=== PATIENT | female | born 1990 | race Caucasian/White ===

== ENCOUNTER 2018-12-09 11:35 | Emergency (ER) | payer BC, SELFPAY ==
--- NOTE | 2018-12-09 12:37 | ER ---
Nurse's Notes [facility] Name: Kaila Singh Age: 28 yrs Sex: Female : 1990 Arrival Date: 12/09/2018 Time: 11:38 Bed 14 Private MD: Diagnosis: Acute upper respiratory infection, unspecified Presentation: 12/09 12:04 Presenting complaint: Patient states: i have had cough and congestion, my throat itches tw2 and this morning i feel like my tonsils are swollen, no fever. Transition of care: patient was not received from another setting of care. Onset of symptoms was December 09, 2018. Risk Assessment: Do you want to hurt yourself or someone else? Patient reports no desire to harm self or others. Initial Sepsis Screen: Does the patient meet any 2 criteria? No. Patient's initial sepsis screen is negative. Does the patient have a suspected source of infection? No. Patient's initial sepsis screen is negative. Care prior to arrival: None. 12:04 Method Of Arrival: Ambulatory tw2 12:04 Acuity: WOLF 4 tw2 Triage Assessment: 12:07 General: Appears in no apparent distress. Behavior is calm, cooperative, appropriate tw2 for age. Pain: Complains of pain in uvula, left aspect of posterior pharynx and right aspect of posterior pharynx. EENT: Reports nasal congestion nasal discharge. EENT: Reports. Neuro: Level of Consciousness is awake, alert, obeys commands, Oriented to person, place, time, situation. Cardiovascular: Patient's skin is warm and dry. Respiratory: Reports cough that is Airway is patent Respiratory effort is even, unlabored, Respiratory pattern is regular, symmetrical. GI: No signs and/or symptoms were reported involving the gastrointestinal system. : No signs and/or symptoms were reported regarding the genitourinary system. Derm: No signs and/or symptoms reported regarding the dermatologic system. 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 - Social history:: Smoking status: . - Ebola Screening: : Patient denies travel to an Ebola-affected area in the 21 days before illness onset. Screenin:08 Abuse screen: Denies threats or abuse. Nutritional screening: No deficits noted. tw2 Tuberculosis screening: No symptoms or risk factors identified. Fall Risk None identified. Assessment: 12:08 Reassessment: see triage assessment. tw2 12:43 Reassessment: Patient appears in no apparent distress at this time. No changes from tw2 previously documented assessment. Patient and/or family updated on plan of care and expected duration. Pain level reassessed. Patient is alert, oriented x 3, equal unlabored respirations, skin warm/dry/pink. Vital Signs: 12:05 BP 122 / 72; Pulse 95; Resp 17; Temp 98.3(TE); Pulse Ox 97% on R/A; Weight 113.4 kg tw2 (R); Height 5 ft. 6 in. (167.64 cm); 12:43 BP 113 / 62; Pulse 79; Resp 17; Pulse Ox 99% on R/A; tw2 12:05 Body Mass Index 40.35 (113.40 kg, 167.64 cm) tw2 ED Course: 11:38 Patient arrived in ED. rg4 12:00 Anoop Conti PA is PHCP. cp 12:00 Rob Valderrama MD is Attending Physician. cp 12:00 Bed in low position. Call light in reach. Pulse ox on. NIBP on. tw2 12:04 Luz Nguyen RN is Primary Nurse. tw2 12:05 Triage completed. tw2 12:07 Arm band placed on. tw2 12:12 Strep Sent. tw2 12:44 No provider procedures requiring assistance completed. Patient did not have IV access tw2 during this emergency room visit. Administered Medications: No medications were administered Outcome: 12:36 Discharge ordered by . cp 12:44 Discharged to home ambulatory. tw2 12:44 Condition: stable 12:44 Discharge instructions given to patient, Instructed on discharge instructions, follow up and referral plans. medication usage, Demonstrated understanding of instructions, follow-up care, medications, Prescriptions given X 1. 12:45 Patient left the ED. tw2 Signatures: Anoop Conti PA PA cp Wise, Tara, RN RN tw2 Nelly Beebe rg4
--- NOTE | 2018-12-09 12:37 | EDPHYS ---
Physician Documentation [facility] Name: Kaila Singh Age: 28 yrs Sex: Female : 1990 Arrival Date: 12/09/2018 Time: 11:38 Bed 14 Private MD: ED Physician Rob Valderrama HPI: 12/09 12:15 This 28 yrs old Female presents to ER via Ambulatory with complaints of cp Cough, Difficulty Swallowing. 12:15 The patient or guardian reports cough, that is intermittent, with no sputum. Onset: The cp symptoms/episode began/occurred 4 day(s) ago. Associated signs and symptoms: Pertinent positives: sore throat, Pertinent negatives: diarrhea, ear ache, fever, vomiting. 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 - Social history:: Smoking status: . - Ebola Screening: : Patient denies travel to an Ebola-affected area in the 21 days before illness onset. ROS: 12:20 Constitutional: Negative for body aches, chills, fever, poor PO intake. cp 12:20 Eyes: Negative for injury, pain, redness, and discharge. cp 12:20 ENT: Positive for sore throat, Negative for drainage from ear(s), ear pain, difficulty swallowing, difficulty handling secretions, hoarseness. 12:20 Neck: Negative for stiffness. 12:20 Cardiovascular: Negative for chest pain. 12:20 Respiratory: Positive for cough, Negative for shortness of breath, wheezing. 12:20 Abdomen/GI: Negative for abdominal pain, nausea, vomiting, and diarrhea. 12:20 Skin: Negative for cellulitis, rash. 12:20 Neuro: Negative for altered mental status, headache. 12:20 All other systems are negative. Exam: 12:25 Constitutional: The patient appears in no acute distress, alert, awake, non-toxic, well cp developed, well nourished. 12:25 Head/Face: Normocephalic, atraumatic. cp 12:25 Eyes: Periorbital structures: appear normal, Conjunctiva: normal, no exudate, no injection, Lids and lashes: appear normal, bilaterally. 12:25 ENT: External ear(s): are unremarkable, Ear canal(s): are normal, clear, TM's: bulging, is not appreciated, bilaterally, dullness, bilaterally, erythema, is not appreciated, bilaterally, Nose: is normal, Mouth: Lips: moist, Oral mucosa: moist, Posterior pharynx: Airway: no evidence of obstruction, patent, Tonsils: with erythema, no enlargement, no exudate, Uvula: midline, erythema, that is mild, exudate, is not appreciated. 12:25 Neck: ROM/movement: is normal, is supple, without pain, no range of motions limitations, no meningismus, no nuchal rigidity, Lymph nodes: no appreciated lymphadenopathy. 12:25 Chest/axilla: Inspection: normal. 12:25 Cardiovascular: Rate: normal, Rhythm: regular. 12:25 Respiratory: the patient does not display signs of respiratory distress, Respirations: normal, no use of accessory muscles, no retractions, no splinting, no tachypnea, labored breathing, is not present, Breath sounds: decreased breath sounds, are not appreciated, stridor, is not appreciated, + upper airway congestion. wheezing: is not appreciated. 12:25 Abdomen/GI: Exam negative for discomfort, distension, guarding, Inspection: abdomen appears normal. Vital Signs: 12:05 BP 122 / 72; Pulse 95; Resp 17; Temp 98.3(TE); Pulse Ox 97% on R/A; Weight 113.4 kg tw2 (R); Height 5 ft. 6 in. (167.64 cm); 12:43 BP 113 / 62; Pulse 79; Resp 17; Pulse Ox 99% on R/A; tw2 12:05 Body Mass Index 40.35 (113.40 kg, 167.64 cm) tw2 MDM: 12:00 Patient medically screened. cp 12:30 Differential Diagnosis: Bronchitis Influenza Viral Syndrome Pneumonia Other strep cp throat. 12:35 Data reviewed: vital signs, nurses notes, lab test result(s), and as a result, I will cp discharge patient. 12:35 Counseling: I had a detailed discussion with the patient and/or guardian regarding: the cp historical points, exam findings, and any diagnostic results supporting the discharge/admit diagnosis, lab results, to return to the emergency department if symptoms worsen or persist or if there are any questions or concerns that arise at home. Special discussion: I discussed with the patient/guardian that the patient's current presentation does not indicate dosing of antibiotics. They should follow-up with their primary care provider and return if the symptoms persist or progress. 12/09 12:08 Order name: Strep; Complete Time: 12:34 cp 12/09 12:34 Interpretation: Reviewed. cp 12/09 12:36 Order name: Throat Culture EDMS Administered Medications: No medications were administered Disposition: 12/10 07:05 Co-signature as Attending Physician, Rob Valderrama MD. rn Disposition: 12/09/18 12:36 Discharged to Home. Impression: Acute upper respiratory infection, unspecified. - Condition is Stable. - Discharge Instructions: Upper Respiratory Infection, Adult, Cool Mist Vaporizer. - Prescriptions for Tessalon Perles 100 mg Oral Capsule - take 2 capsule by ORAL route every 8 hours As needed; 30 capsule. - Medication Reconciliation Form, Thank You Letter, Antibiotic Education, Prescription Opioid Use, Work release form form. - Follow up: Private Physician; When: 2 - 3 days; Reason: Worsening of condition. - Problem is new. - Symptoms have improved. Signatures: Dispatcher [employer] EDMS Rob Valderrama MD MD rn Anoop Conti PA PA cp Wise, Tara, RN RN tw2 Corrections: (The following items were deleted from the chart) 12/09 12:45 12:36 12/09/2018 12:36 Discharged to Home. Impression: Acute upper respiratory tw2 infection, unspecified. Condition is Stable. Forms are Work release form, Medication Reconciliation Form, Thank You Letter, Antibiotic Education, Prescription Opioid Use. Follow up: Private Physician; When: 2 - 3 days; Reason: Worsening of condition. Problem is new. Symptoms have improved. cp
== END 2018-12-09 12:45 | disposition home or self-care (01) ==
LOC: ER 11:35
DX: J06.9 Acute upper respiratory infection, unspecified (principal)
CPT/HCPCS: 87070; 87081; 99283

== ENCOUNTER 2020-02-20 06:18 | Emergency (ER) | payer OTHER, SELFPAY ==
--- NOTE | 2020-02-20 07:22 | ER ---
Nurse's Notes [facility] Name: Kaila Singh Age: 29 yrs Sex: Female : 1990 Arrival Date: 02/20/2020 Time: 06:21 Bed 7 Private MD: Diagnosis: Acute Bacterial Bronchitis Presentation: 02/19 06:26 Chief complaint:. Care prior to arrival: None. Transition of care: patient was not sg received from another setting of care. 06:26 Acuity: WOLF 4 sg 06:33 Coronavirus screen: Patient reports a cough. pt reports NEGATIVE COVID 19 results sg posted yesterday. Ebola Screen: Patient negative for fever greater than or equal to 101.5 degrees Fahrenheit, and additional compatible Ebola Virus Disease symptoms Patient denies exposure to infectious person. Patient denies travel to an Ebola-affected area in the 21 days before illness onset. No symptoms or risks identified at this time. Initial Sepsis Screen: Does the patient meet any 2 criteria? No. Patient's initial sepsis screen is negative. Does the patient have a suspected source of infection? No. Patient's initial sepsis screen is negative. Risk Assessment: Do you want to hurt yourself or someone else? Patient reports no desire to harm self or others. Onset of symptoms was February 20, 2020. 06:33 Method Of Arrival: Ambulatory sg Historical: - Allergies: 06:28 No Known Allergies; sg - PMHx: 06:28 None; sg - PSHx: 06:28 Colon Polyp Removal; sg - Immunization history:: Adult Immunizations up to date. - Social history:: Smoking status: Patient denies any tobacco usage or history of. Screenin:37 Abuse screen: Denies threats or abuse. Denies injuries from another. Nutritional mg2 screening: No deficits noted. Tuberculosis screening: No symptoms or risk factors identified. Fall Risk None identified. Assessment: 06:37 General: Appears in no apparent distress. comfortable, Behavior is calm, cooperative. mg2 Pain: Denies pain. Neuro: Level of Consciousness is awake, alert, obeys commands, Oriented to person, place, time, situation. Cardiovascular: Capillary refill < 3 seconds Patient's skin is warm and dry. Respiratory: Reports cough that is dry, Airway is patent Respiratory effort is even, unlabored, Respiratory pattern is regular, symmetrical, Breath sounds are clear bilaterally. in mediastinum, right upper lobe, left upper lobe, left lower lobe, right lower lobe, left posterior upper lobe, right posterior upper lobe, left posterior lower lobe, right posterior middle lobe and right posterior lower lobe. GI: No signs and/or symptoms were reported involving the gastrointestinal system. : No signs and/or symptoms were reported regarding the genitourinary system. EENT: No signs and/or symptoms were reported regarding the EENT system. Derm: Skin is intact, is healthy with good turgor, Skin is pink, warm \T\ dry. normal. Musculoskeletal: Circulation, motion, and sensation intact. Capillary refill < 3 seconds. 07:34 Reassessment: Patient appears in no apparent distress at this time. Patient and/or ph family updated on plan of care and expected duration. Pain level reassessed. Patient is alert, oriented x 3, equal unlabored respirations, skin warm/dry/pink. Pt d/c home w/ prescriptions and work note. Vital Signs: 06:33 BP 135 / 77; Pulse 87; Resp 18; Temp 97.5; Pulse Ox 100% on R/A; Pain 3/10; sg 07:35 BP 128 / 76; Pulse 81; Resp 18; Temp 98.0; Pulse Ox 99% on R/A; ph ED Course: 06:21 Patient arrived in ED. es 06:25 Arm band placed on. EKG completed in triage. Results shown to MD. sg 06:27 Zia Lafleur PA is PHCP. jr8 06:27 Shlomo Mace MD is Attending Physician. jr8 06:27 Triage completed. sg 06:34 Osiel Manzano, TEODORO is Primary Nurse. mg2 06:38 Patient has correct armband on for positive identification. mg2 06:38 No provider procedures requiring assistance completed. Patient did not have IV access mg2 during this emergency room visit. 06:58 XRAY Chest Pa And Lat (2 Views) In Process Unspecified. EDMS Administered Medications: No medications were administered Outcome: 07:21 Discharge ordered by MD. jr8 07:35 Discharged to home ambulatory. ph 07:35 Condition: good 07:35 Discharge instructions given to patient, Instructed on discharge instructions, follow up and referral plans. medication usage, Demonstrated understanding of instructions, follow-up care, medications, Prescriptions given X 3. 07:36 Patient left the ED. ph Signatures: Dispatcher [employer] Valerio Casanova RN RN sg Sara Magdaleno Josh, PA PA jr8 Светлана Puente RN RN Osiel Manzano RN RN mg2 Corrections: (The following items were deleted from the chart) 06:34 06:26 Transition of care: patient was not received from another setting of care. shell goff
--- NOTE | 2020-02-20 07:22 | EDPHYS ---
Physician Documentation [facility] Name: Kaila Singh Age: 29 yrs Sex: Female : 1990 Arrival Date: 02/20/2020 Time: 06:21 Bed 7 Private MD: ED Physician Shlomo Mace HPI: 02/19 06:40 This 29 yrs old Female presents to ER via Ambulatory with complaints of jr8 bronchitis. 06:40 The patient or guardian reports cough, that is intermittent, described as moderate, jr8 with no sputum. Onset: The symptoms/episode began/occurred gradually, 2 week(s) ago. Severity of symptoms: At their worst the symptoms were moderate, in the emergency department the symptoms are unchanged. Modifying factors: The symptoms are alleviated by nothing, the symptoms are aggravated by nothing. Associated signs and symptoms: Pertinent positives: fever, rhinorrhea. The patient has not experienced similar symptoms in the past. The patient has not recently seen a physician. Was COVID tested via nasal PCR and go results yesterday. Negative for Sars CoV-2. Stated that she has occasional night fevers with persistent dry cough that will not go away. Denies any other symptoms at this time . Historical: - Allergies: 06:28 No Known Allergies; sg - PMHx: 06:28 None; sg - PSHx: 06:28 Colon Polyp Removal; sg - Immunization history:: Adult Immunizations up to date. - Social history:: Smoking status: Patient denies any tobacco usage or history of. ROS: 06:40 Eyes: Negative for injury, pain, redness, and discharge, ENT: Negative for injury, jr8 pain, and discharge, Neck: Negative for injury, pain, and swelling, Cardiovascular: Negative for chest pain, palpitations, and edema, Abdomen/GI: Negative for abdominal pain, nausea, vomiting, diarrhea, and constipation, Back: Negative for injury and pain, MS/Extremity: Negative for injury and deformity, Skin: Negative for injury, rash, and discoloration, Neuro: Negative for headache, weakness, numbness, tingling, and seizure. 06:40 Constitutional: Positive for fever. 06:40 Respiratory: Positive for cough. Exam: 06:40 Eyes: Pupils equal round and reactive to light, extra-ocular motions intact. Lids and jr8 lashes normal. Conjunctiva and sclera are non-icteric and not injected. Cornea within normal limits. Periorbital areas with no swelling, redness, or edema. ENT: Nares patent. No nasal discharge, no septal abnormalities noted. Tympanic membranes are normal and external auditory canals are clear. Oropharynx with no redness, swelling, or masses, exudates, or evidence of obstruction, uvula midline. Mucous membranes moist. Neck: Trachea midline, no thyromegaly or masses palpated, and no cervical lymphadenopathy. Supple, full range of motion without nuchal rigidity, or vertebral point tenderness. No Meningismus. Cardiovascular: Regular rate and rhythm with a normal S1 and S2. No gallops, murmurs, or rubs. Normal PMI, no JVD. No pulse deficits. Respiratory: Lungs have equal breath sounds bilaterally, clear to auscultation and percussion. No rales, rhonchi or wheezes noted. No increased work of breathing, no retractions or nasal flaring. Abdomen/GI: Soft, non-tender, with normal bowel sounds. No distension or tympany. No guarding or rebound. No evidence of tenderness throughout. Back: No spinal tenderness. No costovertebral tenderness. Full range of motion. Skin: Warm, dry with normal turgor. Normal color with no rashes, no lesions, and no evidence of cellulitis. MS/ Extremity: Pulses equal, no cyanosis. Neurovascular intact. Full, normal range of motion. Neuro: Awake and alert, GCS 15, oriented to person, place, time, and situation. Cranial nerves II-XII grossly intact. Motor strength 5/5 in all extremities. Sensory grossly intact. Cerebellar exam normal. Normal gait. Vital Signs: 06:33 BP 135 / 77; Pulse 87; Resp 18; Temp 97.5; Pulse Ox 100% on R/A; Pain 3/10; sg 07:35 BP 128 / 76; Pulse 81; Resp 18; Temp 98.0; Pulse Ox 99% on R/A; ph MDM: 06:27 Patient medically screened. jr8 07:19 Differential Diagnosis: Bronchitis Influenza Upper Respiratory Infection Sinusitis jr8 Pharyngitis Viral Syndrome Pneumonia. Data reviewed: vital signs, nurses notes, radiologic studies, plain films, and as a result, I will discharge patient. Data interpreted: Pulse oximetry: on room air is 100 %. Interpretation: normal. Counseling: I had a detailed discussion with the patient and/or guardian regarding: the historical points, exam findings, and any diagnostic results supporting the discharge/admit diagnosis, radiology results, the need for outpatient follow up, a family practitioner, to return to the emergency department if symptoms worsen or persist or if there are any questions or concerns that arise at home. 02/19 06:40 Order name: XRAY Chest Pa And Lat (2 Views) jr8 Administered Medications: No medications were administered Disposition: 02/20/20 07:21 Discharged to Home. Impression: Acute Bacterial Bronchitis . - Condition is Stable. - Discharge Instructions: Acute Bronchitis, Adult. - Prescriptions for Prednisone 20 mg Oral Tablet - take 1 tablet by ORAL route once daily for 5 days; 5 tablet. Zithromax Z- Miguel Angel 250 mg Oral Tablet - take 1 tablet by ORAL route as directed for 5 days Day 1 - take two (2) tablets one time. Day 2, 3, 4 , 5 take one (1) tablet once daily.; 6 tablet. - Medication Reconciliation Form, Thank You Letter, Antibiotic Education, Prescription Opioid Use, Work release form form. - Follow up: Private Physician; When: 5 - 6 days; Reason: Recheck today's complaints, Continuance of care, Re-evaluation by your physician. - Problem is new. - Symptoms are unchanged. Signatures: Dispatcher [employer] EDMS Valerio Lara RN RN Zia Lafleur PA PA jr8 Светлана Punete RN RN ph Corrections: (The following items were deleted from the chart) 07:36 07:21 02/20/2020 07:21 Discharged to Home. Impression: Acute Bacterial Bronchitis . ph Condition is Stable. Forms are Medication Reconciliation Form, Thank You Letter, Antibiotic Education, Prescription Opioid Use. Follow up: Private Physician; When: 5 - 6 days; Reason: Recheck today's complaints, Continuance of care, Re-evaluation by your physician. Problem is new. Symptoms are unchanged. jr8
[2020-02-20 07:44] VITALS: BP 128/76; TEMP 98; O2SAT 99
--- NOTE | 2020-02-20 08:15 | RAD REPORT ---
EXAM DESCRIPTION: RAD - Chest Pa And Lat (2 Views) - 02/20/2020 6:58 am CLINICAL HISTORY: COUGH COMPARISON: None TECHNIQUE: Frontal and lateral views of the chest were obtained. FINDINGS: The lungs are clear. Mediastinal and hilar regions within normal limits. Heart size is no rmal and central vasculature is within normal limits. No pleural effusion or pneumothorax seen. No acute bony finding noted. No aortic abnormality. IMPRESSION: No acute cardiopulmonary process.
== END 2020-02-20 07:36 | disposition home or self-care (01) ==
LOC: ER 06:18
DX: J20.8 Acute bronchitis due to other specified organisms (principal)
CPT/HCPCS: 71046; 99283

== ENCOUNTER 2020-02-24 22:19 | Emergency (ER) | payer SELFPAY ==
[2020-02-24] MEDS ORDERED: BENZONATATE 100 MG CAP PO ONE (22:59)
--- NOTE | 2020-02-24 23:45 | EDPHYS ---
Physician Documentation [facility] Name: Kaila Singh Age: 29 yrs Sex: Female : 1990 Arrival Date: 02/24/2020 Time: 22:22 Bed 8 Private MD: ED Physician Jose Horowitz HPI: 02/23 22:55 This 29 yrs old Female presents to ER via Ambulatory with complaints of Sore cp Throat. 22:55 The patient presents with sore throat. cp 22:55 Associated signs and symptoms: Pertinent positives: cough, Pertinent negatives cp diarrhea, dysphagia, fever, headache, vomiting. Patient reports taking last dose of Zithromax and Prednisone today. 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 - Social history:: Smoking status: Patient reports the use of cigarette tobacco products, smokes one-half pack cigarettes per day. ROS: 23:00 Constitutional: Negative for body aches, chills, fever. cp 23:00 Eyes: Negative for injury, pain, redness, and discharge. cp 23:00 ENT: Positive for sore throat, Negative for ear pain, sinus congestion, difficulty swallowing, difficulty handling secretions. 23:00 Cardiovascular: Negative for chest pain, edema, palpitations. 23:00 Respiratory: Positive for cough, Negative for shortness of breath. 23:00 Abdomen/GI: Negative for abdominal pain, nausea, vomiting, and diarrhea. 23:00 All other systems are negative. cp Exam: 23:10 Constitutional: The patient appears in no acute distress, alert, awake, non-toxic, well cp developed, well nourished, obese. 23:10 Head/Face: Normocephalic, atraumatic. cp 23:10 Eyes: Periorbital structures: appear normal, Conjunctiva: normal, no exudate, no injection, Lids and lashes: appear normal, bilaterally. 23:10 ENT: External ear(s): are unremarkable, Ear canal(s): are normal, clear, TM's: dullness, bilaterally, Nose: is normal, Mouth: is normal, Posterior pharynx: Airway: no evidence of obstruction, patent, Tonsils: no enlargement, no exudate, swelling, is not appreciated, erythema, that is mild, exudate, is not appreciated. 23:10 Neck: ROM/movement: Meningeal signs: are not present, Lymph nodes: no appreciated lymphadenopathy. 23:10 Chest/axilla: Inspection: normal. 23:10 Cardiovascular: Rate: tachycardic, Rhythm: regular, Edema: is not appreciated. 23:10 Respiratory: the patient does not display signs of respiratory distress, Respirations: normal, no use of accessory muscles, no retractions, no splinting, labored breathing, is not present, Breath sounds: decreased breath sounds, are not appreciated, stridor, is not appreciated, wheezing: is not appreciated. 23:10 Abdomen/GI: Exam negative for discomfort, distension, guarding, Inspection: abdomen appears normal. Vital Signs: 22:28 BP 123 / 82; Pulse 101; Resp 18; Temp 98.6(O); Pulse Ox 98% on R/A; Weight 124.74 kg aj1 (R); Height 5 ft. 6 in. (167.64 cm) (R); Pain 0/10; 23:53 BP 115 / 86; Pulse 95; Resp 18; Temp 98.6; Pulse Ox 100% on R/A; mg2 22:28 Body Mass Index 44.39 (124.74 kg, 167.64 cm) aj1 MDM: 22:36 Patient medically screened. cp 23:00 Differential diagnosis: apthous stomatitis, bronchitis, group A strep tonsillitis, cp pharyngitis, retropharyngeal abcess tonsillitis, uvulitis, pneumonia. 23:45 Data reviewed: vital signs, nurses notes, old medical records, notes from previous cp visit lab test result(s), and as a result, I will discharge patient. 23:45 Counseling: I had a detailed discussion with the patient and/or guardian regarding: the cp historical points, exam findings, and any diagnostic results supporting the discharge/admit diagnosis, lab results, to return to the emergency department if symptoms worsen or persist or if there are any questions or concerns that arise at home. Response to treatment: the patient's symptoms have mildly improved after treatment, and as a result, I will discharge patient. 02/23 22:48 Order name: Strep cp 02/23 23:13 Order name: Throat Culture EDW[facility] Administered Medications: 23:01 Drug: Tessalon Perle 200 mg Route: PO; rr5 23:53 Follow up: Response: No adverse reaction mg2 Disposition: 02/24/20 23:45 Discharged to Home. Impression: Acute bronchitis. - Condition is Stable. - Discharge Instructions: Acute Bronchitis, Adult. - Prescriptions for Tessalon Perles 100 mg Oral Capsule - take 2 capsule by ORAL route every 8 hours As needed; 30 capsule. Medrol (Miguel Angel) 4 mg Oral Tablets, Dose Pack - take 1 tablet by ORAL route as directed - follow package instructions; 1 packet. Albuterol Sulfate 90 mcg/actuation - inhale 1-2 puff by INHALATION route every 4-6 hours; 1 Inhaler. - Medication Reconciliation Form, Thank You Letter, Antibiotic Education, Prescription Opioid Use, Work release form form. - Follow up: Private Physician; When: 1 week; Reason: Worsening of condition. - Problem is an ongoing problem. - Symptoms have improved. Addendum: 02/26/2020 07:14 Co-signature as Attending Physician, Jose Horowitz MD I agree with the assessment and t w4 plan of care. Signatures: Dispatcher [employer] Natasha Calvo RN RN aj1 Anoop Conti PA PA cp Wadley, Terrence, MD MD tw4 Osiel Manzano RN RN mg2 Jake Wren RN RN rr5 Corrections: (The following items were deleted from the chart) 02/23 23:56 23:45 02/24/2020 23:45 Discharged to Home. Impression: Acute bronchitis. Condition is mg2 Stable. Forms are Medication Reconciliation Form, Thank You Letter, Antibiotic Education, Prescription Opioid Use. Follow up: Private Physician; When: 1 week; Reason: Worsening of condition. Problem is an ongoing problem. Symptoms have improved. cp
--- NOTE | 2020-02-24 23:45 | ER ---
Nurse's Notes [facility] Name: Kaila Singh Age: 29 yrs Sex: Female : 1990 Arrival Date: 02/24/2020 Time: 22:22 Bed 8 Private MD: Diagnosis: Acute bronchitis Presentation: 02/23 22:28 Chief complaint: Patient states: "I came last week because I have bad bronchitis, but I aj1 took all my medicine and I'm not getting any better" Patient reports cough, and intermittent fever and reports that her chest feels tight "all the time" Patient did not follow up with her PHCP seen being seen in the ER last week. Coronavirus screen: Prior COVID test. Ebola Screen: Patient denies travel to an Ebola-affected area in the 21 days before illness onset. Initial Sepsis Screen: Does the patient meet any 2 criteria? No. Patient's initial sepsis screen is negative. Does the patient have a suspected source of infection? Yes: Productive cough/pneumonia. Risk Assessment: Do you want to hurt yourself or someone else? Patient reports no desire to harm self or others. Onset of symptoms was February 2020. 22:28 Method Of Arrival: Ambulatory aj1 22:28 Acuity: WOLF 4 aj1 Triage Assessment: 22:31 General: Appears in no apparent distress. comfortable, Behavior is calm, cooperative, aj1 appropriate for age. Pain: Denies pain. EENT: Denies nasal congestion, nasal discharge. Neuro: Level of Consciousness is awake, alert, obeys commands. Cardiovascular: Patient's skin is warm and dry. Respiratory: Airway is patent Respiratory effort is even, unlabored, Respiratory pattern is regular, symmetrical. 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 - Social history:: Smoking status: Patient reports the use of cigarette tobacco products, smokes one-half pack cigarettes per day. Screenin:40 Abuse screen: Denies threats or abuse. Denies injuries from another. Nutritional mg2 screening: No deficits noted. Tuberculosis screening: No symptoms or risk factors identified. Fall Risk None identified. Assessment: 22:39 General: Appears in no apparent distress. comfortable, Behavior is calm, cooperative. mg2 Pain: Complains of pain in throat. Neuro: Level of Consciousness is awake, alert, obeys commands, Oriented to person, place, time, situation. Cardiovascular: Capillary refill < 3 seconds Patient's skin is warm and dry. Respiratory: Airway is patent Respiratory effort is even, unlabored, Respiratory pattern is regular, symmetrical, Breath sounds are clear bilaterally. in mediastinum, right upper lobe, left upper lobe, right middle lobe, left lower lobe, right lower lobe, left posterior upper lobe, right posterior upper lobe, left posterior lower lobe, right posterior middle lobe and right posterior lower lobe. Respiratory: Reports cough that is. GI: No signs and/or symptoms were reported involving the gastrointestinal system. : No signs and/or symptoms were reported regarding the genitourinary system. EENT: Reports sore throat from severe coughing. Derm: Skin is intact, is healthy with good turgor, Skin is pink, warm \\T\\ dry. normal. Musculoskeletal: Circulation, motion, and sensation intact. Capillary refill < 3 seconds. 23:54 Reassessment: Patient appears in no apparent distress at this time. Patient states mg2 feeling better. Vital Signs: 22:28 BP 123 / 82; Pulse 101; Resp 18; Temp 98.6(O); Pulse Ox 98% on R/A; Weight 124.74 kg aj1 (R); Height 5 ft. 6 in. (167.64 cm) (R); Pain 0/10; 23:53 BP 115 / 86; Pulse 95; Resp 18; Temp 98.6; Pulse Ox 100% on R/A; mg2 22:28 Body Mass Index 44.39 (124.74 kg, 167.64 cm) aj1 ED Course: 22:22 Patient arrived in ED. cl3 22:30 Triage completed. aj1 22:31 Arm band placed on Patient placed in an exam room. aj1 22:34 Osiel Manzano, TEODORO is Primary Nurse. mg2 22:34 Anoop Conti PA is PHCP. cp 22:34 Jose Horowitz MD is Attending Physician. cp 22:40 Patient has correct armband on for positive identification. Door closed. mg2 22:40 No provider procedures requiring assistance completed. Patient did not have IV access mg2 during this emergency room visit. 23:01 Strep swab sent to lab. rr5 Administered Medications: 23:01 Drug: Tessalon Perle 200 mg Route: PO; rr5 23:53 Follow up: Response: No adverse reaction mg2 Outcome: 23:45 Discharge ordered by MD. cp 23:54 Discharged to home ambulatory. mg2 23:54 Condition: stable 23:54 Discharge instructions given to patient, Instructed on discharge instructions, follow up and referral plans. medication usage, Demonstrated understanding of instructions, follow-up care, medications, Prescriptions given X 3. 23:56 Patient left the ED. mg2 Signatures: Natasha Ugalde, RN RN aj1 Anoop Conti PA PA Osiel Gautam, TEODORO RN mg2 Jake Wren RN RN rr5 Geoff Thomas cl3
[2020-02-25 00:21] VITALS: TEMP 98.6
[2020-02-25 00:23] VITALS: BP 115/86; O2SAT 100
== END 2020-02-24 23:56 | disposition home or self-care (01) ==
LOC: ER 22:19
DX: J20.9 Acute bronchitis, unspecified (principal); F17.210 Nicotine dependence, cigarettes, uncomplicated
CPT/HCPCS: 87070; 87081; 99283

== ENCOUNTER 2021-01-30 21:12 | Emergency (ER) | payer SELFPAY ==
--- OUTSIDE RECORDS SUMMARY | 2021-01-30 21:15 | XMS REPORT | Continuity of Care Document ---
:1990 Author Organization [facility] t Address [address] [place] [address] Care Team Providers Name Role Phone Pcp MD Primary Care Physician Unavailable Tripp Rodriguez DO Attending Clinician Han Cagle Attending Clinician Problems This patient has no known problems. Allergies, Adverse Reactions, Alerts This patient has no known allergies or adverse reactions. Social History Social Habit Start Date Stop Date Quantity Comments Source Sex Assigned At [facility] Exposure to Not sure [address] (event) Tobacco use and 2021-01-28 2021-01-28 Never used [facility] - exposure 00:00:00 00:00:00 [facility] Alcohol intake 2021-01-28 2021-01-28 Ex-drinker [facility] es - 00:00:00 00:00:00 (finding) [facility] Smoking Status Start Date Stop Date Source Current some day smoker 2021-01-28 00:00:00 [facility] Medications Ordered Filled Start Stop Current Ordering Indication Dosage Frequency Signature Comments Components Source Medication Medication Date Date Medication? Clinician (SIG) Name Name hydrocortis 2020- Yes 25mg Q.5D [facility] [address] [facility] 01-28 suppositor [facility] - ([facility]) 00:00: 23:59 y (25 mg M edical 25 mg 00 :00 total) Jensen suppository rectally 2 (two) times daily for 10 days. Vital Signs Vital Name Observation Time Observation Value Comments Source Systolic blood 2021-01-28 15:18:00 160 mm[Hg] [facility] Diastolic blood 2021-01-28 15:18:00 78 mm[Hg] [facility] Heart rate 2021-01-28 15:18:00 103 /min [facility] Body temperature 2021-01-28 15:18:00 36.89 Zully [facility] Respiratory rate 2021-01-28 15:18:00 20 /min [facility] Body height 2021-01-28 15:18:00 167.6 cm [facility] Body weight 2021-01-28 15:18:00 134.265 kg [facility] BMI 2021-01-28 15:18:00 47.78 kg/m2 [facility] Oxygen saturation in 2021-01-28 15:18:00 98 /min [facility] Arterial blood by Medical Ce nter Pulse oximetry Procedures This patient has no known procedures. Plan of Care Planned Activity Planned Date Details Comments Source Future Scheduled 2021-05-[address] [facility] - Test 00:00:00 (Season Ended) [code = [facility] INFLUENZA VACCINE (Season Ended)] Future Scheduled 2020-09-[address] [facility] - Test 00:00:00 (12+) [code = [facility] DEPRESSION SCREENING (12+)] Future Scheduled [address] [facility] - Test 00:00:[address] [facility] cervix (procedure) [code = 423383915] Future Scheduled [address] [facility] - Test 00:00:00 (procedure) [code = [facility] 25992390] Future Scheduled 2008 DTAP/TDAP/TD VACCINES [facility] - Test 00:00:00 (1 - Tdap) [code = Medical C enter DTAP/TDAP/TD VACCINES (1 - Tdap)] Future Scheduled 2007 HEPATITIS C SCREENING [facility] - Test 00:00:00 [code = HEPATITIS C [facility] SCREENING] Future Scheduled [address] [facility] - Test 00:00:00 0-64 YRS (1 of 1 - Medical C enter PPSV23) [code = PNEUMOCOCCAL VACCINE 0-64 YRS (1 of 1 - PPSV23)] Encounters Start End Encounter Admission Attending Care Care Encounter Source Date/Time Date/Time Type Type Clinicians Facility Department ID 2020-04-23 2020-04-23 Emergency [facility] [id number] 01:53:00 02:06:00 Karen Lakhani [id number] [place] [id number] [place] [id number] Results This patient has no known results.
[2021-01-30] MEDS ORDERED: NA CHLORIDE 0.9% 1,000 ML ONE (22:18)
[2021-01-30] MEDS ORDERED: ONDANSETRON 4 MG/2 ML VIAL ONE (22:18)
[2021-01-30] MEDS ORDERED: MORPHINE 4 MG/ML SYR ONE (22:18)
[2021-01-30 22:19] LABS: Absolute Lymphocytes (CBC) 1.2 K/uL (0.7-4.9); Basophils % 0.6 % (0-1.3); Hematocrit 37.5 % (36.0-45.0); MPV 7.7 fL (7.6-11.3)
[2021-01-30 22:31] LABS: Potassium 3.3 mmol/L (3.5-5.1)
[2021-01-30 23:45] LABS: Urine Blood Trace-intact (Negative); Urine Glucose Negative (Negative); Urine Protein Negative (Negative); Urine Specific Gravity <=1.005 (1.005-1.030); Urine pH 5.5 (5.0-7.0)
[2021-01-31 00:01] LABS: SARS-COV-2 RT PCR NEGATIVE (NEGATIVE)
--- NOTE | 2021-01-31 00:39 | ER ---
[facility]'s [facility] Name: Kaila [facility] Age: 30 yrs Sex: Female : 1990 Arrival Date: 01/30/2021 Time: 21:17 Bed 20 Private MD: Diagnosis: Hemorrhoids and perianal venous thrombosis Presentation: 01/30 21:29 Chief complaint: Patient states: Rectal pain began Tuesday. Went to [facility] in [address] and was dx with internal hemorrhoid; Provider prescribed pt Hydrocortisone suppository, pt states the medication isn't working. Coronavirus screen: Client denies travel out of the [place] in the last 14 days. Ebola Screen: Patient negative for fever greater than or equal to 101.5 degrees Fahrenheit, and additional compatible Ebola Virus Disease symptoms. Initial Sepsis Screen: Does the patient meet any 2 criteria? No. Patient's initial sepsis screen is negative. Does the patient have a suspected source of infection? No. Patient's initial sepsis screen is negative. Risk Assessment: Do you want to hurt yourself or someone else? Patient reports no desire to harm self or others. Onset of symptoms was January 27, 2021. 21:29 Method Of Arrival: Ambulatory [facility] 21:29 Acuity: WOLF 3 [facility] Triage Assessment: 21:35 General: Appears in no apparent distress. uncomfortable, Behavior is calm, cooperative. 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 - Social history:: Smoking status: Patient reports the use of cigarette tobacco products, smokes one-half pack cigarettes per day. Screenin:00 Abuse screen: Denies threats or abuse. Nutritional screening: No deficits noted. ea Tuberculosis screening: No symptoms or risk factors identified. Fall Risk None identified. Assessment: 22:00 General: Appears in no apparent distress. Behavior is calm, cooperative, appropriate ea for age. Pain: Complains of pain in rectum. Neuro: Level of Consciousness is awake, alert, obeys commands, Oriented to person, place, time. Cardiovascular: Patient's skin is warm and dry. Respiratory: Airway is patent Respiratory effort is even, unlabored, Respiratory pattern is regular, agonal. Derm: Skin is pink, warm \T\ dry. 23:38 Reassessment: Patient and/or family updated on plan of care and expected duration. Pain ea level reassessed. Patient is alert, oriented x 3, equal unlabored respirations, skin warm/dry/pink. 01/31 00:14 Reassessment: Patient and/or family updated on plan of care and expected duration. Pain ea level reassessed. Patient is alert, oriented x 3, equal unlabored respirations, skin warm/dry/pink. Returned from CT. 00:52 Reassessment: Patient and/or family updated on plan of care and expected duration. Pain ea level reassessed. Patient is alert, oriented x 3, equal unlabored respirations, skin warm/dry/pink. Discharge instruction given to patient verbalized the understanding of instruction. Pt left ED ambulatory, accompanied by family, pt tolerating well. Vital Signs: 01/30 21:29 BP 134 / 50; Pulse 122; Resp 16; Temp 98.6; Pulse Ox 97% ; Weight 120.2 kg; Height 5 vg1 ft. 6 in. (167.64 cm); Pain 5/10; 23:38 BP 120 / 60; Pulse 80; Resp 18; Pulse Ox 98% on R/A; ea 21:29 Body Mass Index 42.77 (120.20 kg, 167.64 cm) vg1 ED Course: 21:17 Patient arrived in ED. mr 21:34 Triage completed. vg1 21:35 Arm band placed on. vg1 21:43 Jessica Preciado FNP-C [facility]. kb 21:43 Shlomo Mace MD is Attending Physician. kb 21:54 Milagros Lock RN is Primary Nurse. ea 22:00 Patient has correct armband on for positive identification. Bed in low position. Call ea light in reach. Side rails up X 1. 22:00 Inserted saline lock: 20 gauge in right hand, using aseptic technique. Blood collected. ea 01/31 00:09 CT Abd/Pelvis - IV Contrast Only In Process Unspecified. EDMS 00:50 No provider procedures requiring assistance completed. IV discontinued, intact, ea bleeding controlled, No redness/swelling at site. Pressure dressing applied. Administered Medications: 01/30 22:00 Drug: Zofran (Ondansetron) 4 mg Route: IVP; Site: right hand; ea 01/31 00:41 Follow up: Response: No adverse reaction ea 01/30 22:00 Drug: morphine 4 mg Route: IVP; Site: right hand; ea 23:00 Follow up: Response: No adverse reaction ea 22:34 Drug: NS 0.9% 1000 ml Route: IV; Rate: 1000 ml; Site: right hand; ea 01/31 00:00 Follow up: Response: No adverse reaction; IV Status: Completed infusion; IV Intake: ea 1000ml 00:41 Drug: [place] (HYDROcodone-acetaminophen) 10 mg-325 mg 1 tabs Route: PO; ea 00:51 Follow up: Response: Medication administered at discharge. ea Intake: 00:00 IV: 1000ml; Total: 1000ml. ea Outcome: 00:38 Discharge ordered by . kb 00:50 Discharged to home ambulatory, with family. ea 00:50 Condition: stable 00:50 Discharge instructions given to patient, Instructed on discharge instructions, follow up and referral plans. medication usage, Demonstrated understanding of instructions, follow-up care, medications, Prescriptions given X 2. 00:53 Patient left the ED. ea Signatures: Dispatcher [employer] EDMS Jessica Preciado, NATHAN MICHELLEP-Surinder OliverJes mr LockMilagros, RN Paz Raymond ea RN RN vg1 Corrections: (The following items were deleted from the chart) 01/30 21:50 21:29 Acuity: WOLF 4 vg1 vg1
--- NOTE | 2021-01-31 00:39 | EDPHYS ---
Physician Documentation [facility] Name: Kaila Singh Age: 30 yrs Sex: Female : 1990 Arrival Date: 01/30/2021 Time: 21:17 Bed 20 Private MD: ED Physician Shlomo Mace HPI: 01/31 00:29 This 30 yrs old Female presents to ER via Ambulatory with complaints of kb Hemorrhoids. 00:29 The patient presents to the emergency department with pain in the rectal area, that is kb moderate. Onset: The symptoms/episode began/occurred 3 day(s) ago. Context: the patient has a known history of hemorrhoids. Modifying factors: The symptoms are alleviated by nothing, The symptoms are aggravated by bowel movement. Associate signs and symptoms: The patient has no apparent associated signs or symptoms. The patient has not experienced similar symptoms in the past. The patient has not recently seen a physician. Pt reports rectal pain that started 3 days ago. Went to [facility] in [place] and was diagnosed with internal hemorrhoids, given cream that has not helped the pain. Came in to see if there was anything else she could do about the pain.States she has had fever up to 101. Also reports cough and congestion for a few days. . SUPERVISOR DOPING: 01/30 21:35 LMP 01/13/2021 vg1 Historical: - Allergies: 21:35 No Known Allergies; vg1 - Home Meds: 21:35 paraguard control [Active]; vg1 - PSHx: 21:35 Colon polyps removed at age 17; vg1 - Immunization history:: Adult Immunizations up to date. - Social history:: Smoking status: Patient reports the use of cigarette tobacco products, smokes one-half pack cigarettes per day. ROS: 01/31 00:23 Cardiovascular: Negative for chest pain, palpitations, and edema. kb Constitutional: Positive for chills, fever, malaise. ENT: Positive for rhinorrhea, sinus congestion. Respiratory: Positive for cough, Negative for dyspnea on exertion, hemoptysis, orthopnea, pleurisy, shortness of breath, sputum production, wheezing. Abdomen/GI: Positive for rectal pain, Negative for abdominal pain, nausea, vomiting, and diarrhea. All other systems are negative. Exam: 00:28 Constitutional: This is a well developed, well nourished patient who is awake, alert, kb and in no acute distress. ENT: Moist Mucous membranes Cardiovascular: Regular rate and rhythm with a normal S1 and S2. No gallops, murmurs, or rubs. No pulse deficits. Respiratory: Respirations even and unlabored. No increased work of breathing, no retractions or nasal flaring. Abdomen/GI: Soft, non-tender. No distention Skin: Warm, dry with normal turgor. Normal color. MS/ Extremity: Pulses equal, no cyanosis. Neurovascular intact. Full, normal range of motion. Neuro: Awake and alert, GCS 15, oriented to person, place, time, and situation. Moves all extremities. Normal gait. Psych: Awake, alert, with orientation to person, place and time. Behavior, mood, and affect are within normal limits. 00:28 Abdomen/GI: Rectal exam: rectal tone normal, hemorrhoid(s), external, with pain, without bleeding, without inflammation, without thrombosis, mass, is not appreciated, swelling, is not appreciated, tenderness, that is moderate, fecal impaction, is not appreciated, the exam is chaperoned by the nurse. Vital Signs: 01/30 21:29 BP 134 / 50; Pulse 122; Resp 16; Temp 98.6; Pulse Ox 97% ; Weight 120.2 kg; Height 5 vg1 ft. 6 in. (167.64 cm); Pain 5/10; 23:38 BP 120 / 60; Pulse 80; Resp 18; Pulse Ox 98% on R/A; ea 21:29 Body Mass Index 42.77 (120.20 kg, 167.64 cm) vg1 MDM: 21:43 Patient medically screened. kb 01/31 00:22 Data reviewed: vital signs, nurses notes. Data interpreted: Pulse oximetry: on room air kb is 98 %. Interpretation: normal. 00:32 Counseling: I had a detailed discussion with the patient and/or guardian regarding: the kb historical points, exam findings, and any diagnostic results supporting the discharge/admit diagnosis, lab results, radiology results, the need for outpatient follow up, a general surgeon, to return to the emergency department if symptoms worsen or persist or if there are any questions or concerns that arise at home. 01/30 21:53 Order name: CBC with Diff; Complete Time: 22:26 kb 01/30 21:53 Order name: Basic Metabolic Panel; Complete Time: 22:33 kb 01/30 23:44 Order name: Urine Dipstick-Ancillary; Complete Time: 23:48 EDMS 01/30 23:47 Order name: Urine --Ancillary (enter results) tt3 01/30 21:53 Order name: CT Abd/Pelvis - IV Contrast Only kb 01/30 21:53 Order name: IV Start; Complete Time: 22:34 kb 01/31 00:01 Order name: COVID-19/FLU A+B; Complete Time: 00:04 EDMS Administered Medications: 01/30 22:00 Drug: Zofran (Ondansetron) 4 mg Route: IVP; Site: right hand; ea 01/31 00:41 Follow up: Response: No adverse reaction ea 01/30 22:00 Drug: morphine 4 mg Route: IVP; Site: right hand; ea 23:00 Follow up: Response: No adverse reaction ea 22:34 Drug: NS 0.9% 1000 ml Route: IV; Rate: 1000 ml; Site: right hand; ea 01/31 00:00 Follow up: Response: No adverse reaction; IV Status: Completed infusion; IV Intake: ea 1000ml 00:41 Drug: [place] (HYDROcodone-acetaminophen) 10 mg-325 mg 1 tabs Route: PO; ea 00:51 Follow up: Response: Medication administered at discharge. Disposition: 04:15 Co-signature as Attending Physician, Shlomo Mace MD. [email or web address] Disposition: 01/31/21 00:38 Discharged to Home. Impression: Hemorrhoids and perianal venous thrombosis. - Condition is Stable. - Discharge Instructions: Hemorrhoids, [id number]. - Prescriptions for Anusol- HC 2.5 % Rectal Cream - Apply to affected area 1 application by TOPICAL route every 8 hours As needed; 30 gram. Colace 100 mg Oral Tablet - take 1 tablet by ORAL route every 12 hours; 14 tablet. - Work release form, Medication Reconciliation Form, Thank You Letter, Antibiotic Education, Prescription Opioid Use form. - Follow up: Emergency Department; When: As needed; Reason: Worsening of condition. Follow up: Private Physician; When: 2 - 3 days; Reason: Recheck today's complaints, Continuance of care, Re-evaluation by your physician. Signatures: Dispatcher [employer] ANDREA Preciado Jessica, MANAGER TREASURY-C MANAGER TREASURY-Ckb Milagros Lock, RN RN ea Paz Beebe, RN RN vg1 Shlomo Mace MD MD [email or web address] Corrections: (The following items were deleted from the chart) 01/30 23:06 21:54 CORONAVIRUS+MR.LAB.BRZ ordered. EDAR EDAR 23:07 21:54 Influenza Screen (A \T\ B)+BA.LAB.BRZ ordered. [facility] 01/31 00:53 00:38 01/31/2021 00:38 Discharged to Home. Impression: Hemorrhoids and perianal venous ea thrombosis. Condition is Stable. Forms are Medication Reconciliation Form, Thank You Letter, Antibiotic Education, Prescription Opioid Use. Follow up: Emergency Department; When: As needed; Reason: Worsening of condition. Follow up: Private Physician; When: 2 - 3 days; Reason: Recheck today's complaints, Continuance of care, Re-evaluation by your physician. kb
[2021-01-31 00:45] LABS: Urine Specific Gravity/Preg <1.005 (1.005-1.030)
[2021-01-31] MEDS ORDERED: HYDROCODONE/APAP 10/325 TAB ONE (00:59)
[2021-01-31 01:26] VITALS: TEMP 98.6
[2021-01-31 01:27] VITALS: BP 120/60; O2SAT 98
--- NOTE | 2021-02-01 18:23 | RAD REPORT ---
EXAM DESCRIPTION: Abdomen Pelvis W Contrast RadLex: CT ABDOMEN PELVIS WITH IV CONTRAST CLINICAL HISTORY: ABD PAIN. COMPARISON: None. TECHNIQUE: CT of the abdomen and pelvis was performed following intravenous administration of iodina nini contrast. Arterial phase images through the abdomen and portal venous phase images through the ab domen and pelvis were obtained. Oral contrast was not administered. Axial, coronal, and sagittal soft tissue window reconstructions were created and sent to PACS. This exam was performed according to our departmental dose-optimization program, which includes autom ated exposure control, adjustment of the mA and/or kV according to patient size and/or use of iterati ve reconstruction technique. FINDINGS: Thoracic: No significant abnormality. Hepatobiliary: No concerning hepatic lesion identified. The hepatic and portal veins are patent. Smal l calcified gallstone in the gallbladder with no gallbladder wall thickening or surrounding inflammat ory changes. No biliary ductal dilatation. Pancreas: Unremarkable. Spleen: Unremarkable. Gastrointestinal: No evidence of bowel obstruction or perienteric inflammation. The appendix is tonja l. Small amount of fecal material in the colon. Adrenals: No abnormality identified in either adrenal gland. 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 No concerning parenchy mal abnormality in either kidney. No hydronephrosis or urolithiasis. Bladder/Reproductive: Unremarkable appearance of the urinary bladder by CT technique. Well positioned intrauterine device. Vascular/Lymphatics: No lymphadenopathy identified by CT size criteria. The major visceral vessels ar e patent. Abdominal aorta is normal in caliber. Musculoskeletal: No concerning osseous lesion identified. Fluid / peritoneum: No significant free fluid. No free intraperitoneal air identified. IMPRESSION: 1. No acute abdominal or pelvic pathology identified. 2. Cholelithiasis without CT evidence of acute cholecystitis. Electronically signed by: Maggie Sheikh MD 01/31/2021 12:21 AM CDT Due to temporary technical issues with the PACS/Fluency reporting system, reports are being signed by the in house radiologists without review as a courtesy to insure prompt reporting. The interpreting radiologist is fully responsible for the content of the report.
== END 2021-01-31 00:53 | disposition home or self-care (01) ==
LOC: ER 21:12
DX: K64.5 Perianal venous thrombosis (principal); Z20.822 Contact with and (suspected) exposure to COVID-19; F17.210 Nicotine dependence, cigarettes, uncomplicated; R50.9 Fever, unspecified
CPT/HCPCS: 0240U; 36415; 74177; 80048; 81003; 81025; 85025; 96361; 96374; 96375; 99284; J2405; J7030; Q9967

== ENCOUNTER 2021-03-08 19:22 | Emergency (ER) | payer OTHER, SELFPAY ==
--- OUTSIDE RECORDS SUMMARY | 2021-03-08 19:25 | XMS REPORT | Continuity of Care Document ---
:1990 Author Organization [facility] t Address [address] [place] [address] Care Team Providers Name Role Phone Pcp MD Primary Care Physician Unavailable Tripp Rodriguez DO Attending Clinician Han Cagle Attending Clinician Problems This patient has no known problems. Allergies, Adverse Reactions, Alerts This patient has no known allergies or adverse reactions. Social History Social Habit Start Date Stop Date Quantity Comments Source Sex Assigned At [facility] Tobacco use and 2021-01-28 2021-01-28 Never used [facility] - exposure 00:00:00 00:00:00 [facility] Alcohol intake 2021-01-28 2021-01-28 Ex-drinker [facility] es - 00:00:00 00:00:00 (finding) [facility] Smoking Status Start Date Stop Date Source Current some day smoker 2021-01-28 00:00:00 [facility] Medications Ordered Filled Start Stop Current Ordering Indication Dosage Frequency Signature Comments Components Source Medication Medication Date Date Medication? Clinician (SIG) Name Name hydrocortis No 25mg Q.5D Place 1 [facility] 01-28 suppositor [facility] - (ANUSOL-HC) 00:00: 23:59 y (25 mg M edical 25 mg 00 :00 total) Center suppository rectally 2 (two) times daily for 10 days. Vital Signs Vital Name Observation Time Observation Value Comments Source Systolic blood 2021-01-28 15:18:00 160 mm[Hg] [facility] Diastolic blood 2021-01-28 15:18:00 78 mm[Hg] [facility] Heart rate 2021-01-28 15:18:00 103 /min [facility] Body temperature 2021-01-28 15:18:00 36.89 [facility] Respiratory rate 2021-01-28 15:18:00 20 /min [facility] Body height 2021-01-28 15:18:00 167.6 cm [facility] Body weight 2021-01-28 15:18:00 134.265 kg [facility] BMI 2021-01-28 15:18:00 47.78 kg/m2 [facility] Oxygen saturation in 2021-01-28 15:18:00 98 /min [facility] Arterial blood by Medical Ce nter Pulse oximetry Procedures This patient has no known procedures. Plan of Care Planned Activity Planned Date Details Comments Source Future Scheduled 2021-05-[address] [facility] - Test 00:00:00 (Season Ended) [code = [facility] INFLUENZA VACCINE (Season Ended)] Future Scheduled 2020-09-[address] [facility] - Test 00:00:00 (12+) [code = [facility] DEPRESSION SCREENING (12+)] Future Scheduled [address] [facility] - Test 00:00:00 malignant neoplasm of [facility] cervix (procedure) [code = 366496301] Future Scheduled [address] [facility] - Test 00:00:00 (procedure) [code = [facility] [id number]] Future Scheduled 2008 DTAP/TDAP/TD VACCINES [facility] [...] Date/Time Type Type Clinicians Facility Department ID 2021-02-01 2021-02-01 Inpatient E [id number] 19:13:00 13:52:00 2020-04-23 2020-04-23 Emergency [facility] [id number] 01:53:00 02:06:00 Karen Lakhani [id number] [place] [id number] [place] [id number] Results This patient has no known results.
--- NOTE | 2021-03-08 20:26 | RAD REPORT ---
EXAM DESCRIPTION: RAD - Foot Left 3 View - 03/08/2021 8:15 pm CLINICAL HISTORY: Left Foot pain status post injury FINDINGS: No fracture or dislocation is seen.
--- NOTE | 2021-03-08 20:29 | EDPHYS ---
Physician Documentation [facility] Name: Kaila Singh Age: 30 yrs Sex: Female : 1990 Arrival Date: 03/08/2021 Time: 19:26 Bed 12 Private MD: ED Physician Shlomo Mace HPI: 03/08 20:23 This 30 yrs old Female presents to ER via Ambulatory with complaints of Foot pm1 Injury. 20:23 The patient presents with a contusion. The complaints affect the dorsum of left foot. pm1 20:23 Context: The problem was sustained at work, resulted from a crush injury, the patient pm1 can fully bear weight, the patient is able to ambulate. Onset: The symptoms/episode began/occurred today. Modifying factors: the symptoms are aggravated by weight bearing. Associated signs and symptoms: Pertinent positives: numbness, tingling, of the left fourth toe and left fifth toe. Treatment prior to arrival includes: icing the affected extremity. Severity of symptoms: in the emergency department the symptoms are unchanged. The patient has not experienced similar symptoms in the past. The patient has not recently seen a physician. Historical: - Allergies: 19:39 No Known Allergies; ad5 - PMHx: 19:39 None; ad5 - Immunization history:: Adult Immunizations up to date. - Social history:: Smoking status: Patient reports the use of cigarette tobacco products, smokes one-half pack cigarettes per day. ROS: 20:23 Constitutional: Negative for fever, chills, and weight loss, Cardiovascular: Negative pm1 for chest pain, palpitations, and edema, Respiratory: Negative for shortness of breath, cough, wheezing, and pleuritic chest pain. 20:23 Skin: Negative for injury, rash, and discoloration. 20:23 MS/extremity: Positive for pain, of the dorsum of left foot, Negative for decreased range of motion, deformity. 20:23 Neuro: Positive for numbness, tingling, of the left fifth toe and left fourth toe. 20:23 All other systems are negative. Exam: 20:23 Constitutional: This is a well developed, well nourished patient who is awake, alert, pm1 and in no acute distress. Head/Face: Normocephalic, atraumatic. 20:23 Skin: Warm, dry with normal turgor. Normal color with no rashes, no lesions, and no evidence of cellulitis. 20:23 Cardiovascular: Rate: normal, Rhythm: regular, Pulses: no pulse deficits are appreciated. 20:23 Respiratory: Exam negative for acute changes, respiratory distress, shortness of breath. 20:23 Musculoskeletal/extremity: Extremities: grossly normal except: noted in the lateral dorsum of left foot: swelling, tenderness, There is no evidence of deformity, FROM intact to left toes. Able to flex extend and fan all toes without any difficulty. 20:23 Neuro: Exam negative for acute changes, Orientation: is normal, Mentation: is normal, Motor: is normal, moves all fours. Vital Signs: 19:37 BP 125 / 79; Pulse 113; Resp 18 S; Temp 98.1; Pulse Ox 98% on R/A; Weight 117.93 kg; ad5 Height 5 ft. 6 in. (167.64 cm); 19:37 Body Mass Index 41.96 (117.93 kg, 167.64 cm) ad5 MDM: 19:57 Patient medically screened. pm1 20:28 Data reviewed: vital signs. Data interpreted: Pulse oximetry: on room air is 98 %. pm1 Interpretation: normal. Counseling: I had a detailed discussion with the patient and/or guardian regarding: the historical points, exam findings, and any diagnostic results supporting the discharge/admit diagnosis, radiology results, the need for outpatient follow up, to return to the emergency department if symptoms worsen or persist or if there are any questions or concerns that arise at home. 03/08 19:58 Order name: Foot Left 3 View XRAY; Complete Time: 20: pm1 03/08 20:52 Order name: Crutches; Complete Time: 20:52 bb Administered Medications: 20:23 Drug: Zofran (Ondansetron) 4 mg Route: PO; ad5 21:10 Follow up: Response: No adverse reaction bb 20:24 Drug: [place] (HYDROcodone-acetaminophen) 10 mg-325 mg 1 tabs {Note: RASS 0.} Route: PO; ad5 21:09 Follow up: Response: No adverse reaction bb Disposition: 03/09 03:21 Co-signature as Attending Physician, Shlomo Mace MD. [email or web address] Disposition: 03/08/21 20:28 Discharged to Home. Impression: Contusion of left foot. - Condition is Stable. - Discharge Instructions: Foot Contusion. - Prescriptions for Diclofenac Sodium 75 mg Oral Tablet, Delayed Release (E.C.) - take 1 tablet by ORAL route 2 times per day As needed; 30 tablet. - Medication Reconciliation Form, Thank You Letter, Work release form, Antibiotic Education, Prescription Opioid Use form. - Follow up: Emergency Department; When: As needed; Reason: Worsening of condition. Follow up: Private Physician; When: 2 - 3 days; Reason: Recheck today's complaints, Continuance of care, Re-evaluation by your physician. - Problem is new. - Symptoms have improved. Signatures: Dispatcher [employer] EDMS Lindsey Boston RN RN bb Albino Becerra, RYAN AIRCRAFT ENGINE TECHNICIAN pm1 Shlomo Mace MD MD 7 [place] Corrections: (The following items were deleted from the chart) 03/08 21:11 20:28 03/08/2021 20:28 Discharged to Home. Impression: Contusion of left foot. bb Condition is Stable. Forms are Medication Reconciliation Form, Thank You Letter, Antibiotic Education, Prescription Opioid Use. Follow up: Emergency Department; When: As needed; Reason: Worsening of condition. Follow up: Private Physician; When: 2 - 3 days; Reason: Recheck today's complaints, Continuance of care, Re-evaluation by your physician. Problem is new. Symptoms have improved. pm1
--- NOTE | 2021-03-08 20:29 | ER ---
Nurse's Notes [facility] Name: Kaila Singh Age: 30 yrs Sex: Female : 1990 Arrival Date: 03/08/2021 Time: 19:26 Bed 12 Private MD: Diagnosis: Contusion of left foot Presentation: 03/08 19:37 Chief complaint: Patient states: Pt reports pain/edema/bruising L lateral foot s/p "ran ad5 over my foot with a pallot donaldo at work". Ambulatory with steady gait. Reports numbness to L fourth and fifth toes. Coronavirus screen: At this time, the client does not indicate any symptoms associated with coronavirus-19. Ebola Screen: No symptoms or risks identified at this time. Initial Sepsis Screen: Does the patient meet any 2 criteria? No. Patient's initial sepsis screen is negative. Does the patient have a suspected source of infection? No. Patient's initial sepsis screen is negative. Risk Assessment: Do you want to hurt yourself or someone else? Patient reports no desire to harm self or others. Onset of symptoms was March 08, 2021 at 17:07. 19:37 Method Of Arrival: Ambulatory ad5 19:37 Acuity: WOLF 4 ad5 Triage Assessment: 21:10 Injury Description: Crush injury sustained to left foot. bb Historical: - Allergies: 19:39 No Known Allergies; ad5 - PMHx: 19:39 None; ad5 - Immunization history:: Adult Immunizations up to date. - Social history:: Smoking status: Patient reports the use of cigarette tobacco products, smokes one-half pack cigarettes per day. Screenin:05 Abuse screen: Denies threats or abuse. Nutritional screening: No deficits noted. bb Tuberculosis screening: No symptoms or risk factors identified. Fall Risk None identified. Assessment: 20:23 Reassessment: Pt reports nausea when taking ordered pain medication, provider aware, ad5 order for zofran po at this time. Pt tolerated well. NAD noted. 21:05 General: Appears in no apparent distress. uncomfortable, obese, Behavior is calm, bb cooperative. Pain: Complains of pain in left foot. Neuro: Level of Consciousness is awake, alert, obeys commands, Oriented to person, place, time, situation. Cardiovascular: No deficits noted. Respiratory: Airway is patent Respiratory effort is even, unlabored, Respiratory pattern is regular. GI: No signs and/or symptoms were reported involving the gastrointestinal system. Derm: Skin is pink, warm \\T\\ dry. Musculoskeletal: Capillary refill < 3 seconds, Reports pain in left foot. 21:07 Reassessment: Patient is alert, oriented x 3, equal unlabored respirations, skin bb warm/dry/pink. pt fitted for crutches demonstrated good technique and verbalized understanding of and agrees to plan of care. Pt ambulated with crutches to exit accompanied by family. Vital Signs: 19:37 BP 125 / 79; Pulse 113; Resp 18 S; Temp 98.1; Pulse Ox 98% on R/A; Weight 117.93 kg; ad5 Height 5 ft. 6 in. (167.64 cm); 19:37 Body Mass Index 41.96 (117.93 kg, 167.64 cm) ad5 ED Course: 19:26 Patient arrived in ED. es 19:39 Triage completed. ad5 19:57 Albino Becerra NP is PHCP. pm1 19:57 Shlomo Mace MD is Attending Physician. pm1 20:15 Foot Left 3 View XRAY In Process Unspecified. EDMS 20:16 Lindsey Boston, RN is Primary Nurse. bb 21:05 Patient has correct armband on for positive identification. bb 21:10 No provider procedures requiring assistance completed. Patient did not have IV access bb during this emergency room visit. Administered Medications: 20:23 Drug: Zofran (Ondansetron) 4 mg Route: PO; ad5 21:10 Follow up: Response: No adverse reaction bb 20:24 Drug: [place] (HYDROcodone-acetaminophen) 10 mg-325 mg 1 tabs {Note: RASS 0.} Route: PO; ad5 21:09 Follow up: Response: No adverse reaction bb Outcome: 20:28 Discharge ordered by MD. pm1 21:10 Discharged to home with crutches, with family. bb 21:10 Condition: stable 21:10 Discharge instructions given to patient, Instructed on discharge instructions, follow up and referral plans. medication usage, crutch walking, Demonstrated understanding of instructions, follow-up care, medications, crutch walking, Prescriptions given X 1. 21:11 Patient left the ED. bb Signatures: Dispatcher [employer] EDMS Sara Magdaleno Brenda, RN RN bb Albino Becerra NP HEAT TREATING OPERATOR pm1 [place] ad5 Corrections: (The following items were deleted from the chart) 19:54 19:37 Acuity: WOLF 3 ad5 ad5
[2021-03-08] MEDS ORDERED: HYDROCODONE/APAP 10/325 TAB ONE (20:38)
[2021-03-08] MEDS ORDERED: ONDANSETRON 4 MG (ODT) TAB ONE (20:43)
[2021-03-08 21:16] VITALS: BP 125/79; TEMP 98.1; O2SAT 98
== END 2021-03-08 21:11 | disposition home or self-care (01) ==
LOC: ER 19:22
DX: S90.32XA Contusion of left foot, initial encounter (principal); X58.XXXA Exposure to other specified factors, initial encounter; Y99.0 Civilian activity done for income or pay; F17.210 Nicotine dependence, cigarettes, uncomplicated
CPT/HCPCS: 99284

== ENCOUNTER 2023-01-07 16:24 | Emergency (ER) | payer SELFPAY ==
--- OUTSIDE RECORDS SUMMARY | 2023-01-07 16:28 | XMS REPORT | Continuity of Care Document ---
:1990 Author Organization [facility] t Address [address] [place] [address] Care Team Providers Name Role Phone No, Pcp [facility] Primary Care Physician Unavailable Philip Mooney Attending Clinician FREDERICK QUINTEROS Attending Clinician Unavailable Frederick Quinteros Attending Clinician [phone] Dany Nino Attending Clinician Karen Cagle Attending Clinician FREDERICK QUINTEROS Admitting Clinician Unavailable Frederick Quinteros Admitting Clinician Dany Nino Admitting Clinician Problems Condition Condition Condition Status Onset Resolution Last Treating Co mments Source Name Details Category Date Date Treatment Clinician Date PERIRECTAL Diagnosis Active 2021-02-03 Memoria ABSCESS PERIRECTAL 02-01 11:04:00 l ABSCESS 00:00: Vaibhav Active 00 02/01/2021 [facility] FEVER/ FEVER/ Diagnosis Active 2021-02-01 Me moria BOILS BOILS 02-01 14:23:00 l Active 00:00: Vaibhav 02/01/2021 00 [facility] Morbid Morbid Problem Active 2021-06-20 Keagan dinah obesity obesity 21:34:30 l (disorder) (disorder) Alex rmann Active Problem 06/20/2021 [facility] RECTAL RECTAL Diagnosis Active 2021-02-03 M jazlynria ABSCESS ABSCESS 11:04:00 l Active [facility] No known No known Disease Unive rs active active ity of problems problems [facility] History of Past Illness Condition Condition Condition Status Onset Resolution Last Treating Co mments Source Name Details Category Date Date Treatment Clinician Date Morbid Morbid Problem 2021-02-02 2021-02-02 Memoria (severe) (severe) 02-02 09:32:39 09:32:39 l obesity obesity 01:53: Vaibhav due to due to 58 excess excess calories calories 02/02/2021 02/02/2021 [place] Allergies, Adverse Reactions, Alerts Allergy Allergy Status Severity Reaction(s) Onset Inactive Treating Comm ents Source Name Type Date Date Clinician NO KNOWN Allergy Active [facility] NO KNOWN Drug Active Univers ALLERGIE Class ity of [facility] No Known No Known Active Memori a Medicati Medicati l on on [facility] Social History Social Habit Start Date Stop Date Quantity Comments Source Exposure to Not sure [facility] SARS-CoV-2 [place] [facility] (event) [facility] History of Occasional tobacco [facility] tobacco use smoker Medical [facility] Tobacco use and 2021-01-28 2021-01-[address] [facility] exposure 00:00[facility]00 00[facility]00:00 non-user [facility] Alcohol intake 2021-01-28 2021-01-28 Ex-drinker [facility] Sex Assigned At [address] [facility] 00:[facility] Smoking Status Start Date Stop Date Source Social History [facility] Social History 2021-02-02 02:17:47 [facility] Occasional tobacco smoker 2021-01-28 00:00:00 I [facility] Medications Ordered Filled Start Stop Current Ordering Indication Dosage Frequency Signature Comments Components Source Medication Medication Date Date Medication? Clinician (SIG) Name Name BLAISE Yes 17 gm, PO, Memoria E GLYCOL 5-25 BID, X 14 l 3350 142 22:23: day, # 255 Her ribeiro MG/ML Oral 00 gm, 0 Solution Refill(s), Pharmacy: [facility] 149, 170.18, cm, 02/01/21 13:57:00 CDT, Height, 118.182, kg, 02/01/21 13:57:00 CDT, Weight tramadol Yes 50 mg = 1 Keagan dinah hydrochlori 5-25 tab, PO, l de 50 MG 22:23: Q6H, PRN Maru nn Oral Tablet 00 Pain, X 5 day, # 24 tab, 0 Refill(s), Pharmacy: [facility] 149, 170.18, cm, 02/01/21 13:57:00 CDT, Height, 118.182, kg, 02/01/21 13:57:00 CDT, Weight ciprofloxac Yes 500 mg = 1 Memoria in 500 mg 5-25 tab, PO, l oral tablet 22:22: Q12H, X 10 [place] 00 day, # 20 tab, 0 Refill(s), Pharmacy: [facility] 149, 170.18, cm, 02/01/21 13:57:00 CDT, Height, 118.182, kg, 02/01/21 13:57:00 CDT, Weight Amoxicillin Yes 875 mg = 1 Memoria 875 MG / 5-25 tab, PO, l Clavulanate 22:22: BID, X 10 H ermann 125 MG Oral 00 day, # 20 Tablet tab, 0 [Augmentin Refill(s), 875-mg] Pharmacy: [facility] 149, 170.18, cm, 02/01/21 13:57:00 CDT, Height, 118.182, kg, 02/01/21 13:57:00 CDT, Weight Miralax No Notes: Memoria 5-25 Dissolve l 16:48: in 8 oz of Vaibhav 00 water or juice. (Same as: Miralax) NS + KCL No Notes: Memoria 20mEq/L 5-24 PREMIX IV l 1000ml 17:04: - Do Not [place] (Premix) 00 Alter 1,000 mL WASTE: F/P - Sink; E - Municipal Trash Bin Morphine No 2 mg, 1 Memori a 5-24 mL, Route: l 17:03: IV, Drug [place] 00 form: SOLN, Q4H, Dosing Weight 118.182, kg, PRN Pain Score 7-10, Start date: 02/02/21 12:03:00 CDT, Duration: 30 day, Stop date: 03/04/21 12:02:00 CDT, 0 Acetaminoph No Notes: Keagan dinah en 325 MG / 5-24 (Same as: l Hydrocodone 17:03: Pitkin Maru nn Bitartrate 00 325/5) Do 5 MG Oral not exceed Tablet 4gm/day of [Pitkin acetaminop 5/325] hen. Acetaminoph No Notes: Do M emoria en 300 MG / 5-24 not exceed l Codeine 13:16: 4gm/day of Herm don Phosphate 00 acetaminop 30 MG Oral hen. (Same Tablet as: [Tylenol Tylenol with with Codeine #3] Codeine # 3) sugammadex No Route: IV, M emoria (ANES) 5-24 Drug form: l 12:41: SOLN, Vaibhav 00 ONCE, Stop date: 02/02/21 7:41:00 CDT midazolam No Route: IV, Me moria (ANES) 5-24 Drug form: l 12:34: SOLN, Vaibhav 00 ONCE, Stop date: 02/02/21 7:34:00 CDT fentaNYL No Route: IV, Mem oria (ANES) 5-24 Drug form: l 12:34: INJ, ONCE, [place] 00 Stop date: 02/02/21 7:34:00 CDT dexamethaso No Route: IV, Memoria ne (ANES) 5-24 Drug form: l 12:34: INJ, ONCE, [place] Stop date: 02/02/21 7:34:00 CDT ketOROLAC No IV, ONCE Keagan dinah (ANES) 5-24 l 12:34: Vaibhav 00 ondansetron No Route: IV, Memoria (ANES) 5-24 Drug form: l 12:29: INJ, ONCE, Stop date: 02/02/21 7:29:00 CDT lidocaine No Route: IV, Me moria (ANES) 5-24 Drug form: l 12:24: INJ, ONCE, Stop date: 02/02/21 7:24:00 CDT propofol No Route: IV, Mem oria (ANES) 5-24 Drug form: l 12:24: INJ, ONCE, Stop date: 02/02/21 7:24:00 CDT rocuronium No Route: IV, M emoria (ANES) 5-24 Drug form: l 12:24: INJ, ONCE, Stop date: 02/02/21 7:24:00 CDT Lactated No Route: IV, Mem oria Ringers 5-24 Total l Injection 11:39: Volume: Maru nn IV (ANES) 00 1,000, 1000 mL Start date: 02/02/21 6:39:00 CDT, Stop date: 02/02/21 7:39:00 CDT Morphine No 2 mg, 1 Memori a 5-24 mL, Route: l 07:32: IVP, Drug form: SOLN, ONCE, Dosing Weight 118.182, kg, Start date: 02/02/21 2:32:00 CDT, Stop date: 02/02/21 2:32:00 CDT, 0 Zosyn No Notes: Memoria 5-24 (Same as: l 07:00: Zosyn) Dosing based on Piperacill in component MEDICATION WASTE Product Size: 3375 mg Product Wasted: ___ mg Dilaudid No Notes: Memoria 5-24 Same as: l 00:32: Dilaudid [place] 00 Sodium 2020-0 No 1,000 mL, Memori a Chloride 5-24 Rate: 100 l 0.9% IV 00:29: ml/hr, [place] 1,000 mL 00 Infuse over: 10 hr, Route: IV, Dosing Weight 118.182 kg, Total Volume: 1,000, Start date: 02/01/21 19:29:00 CDT, Duration: 1 doses or times, Stop date: 02/02/21 5:28:00 CDT, 2.4, m2, 0 Morphine No 2 mg, 1 Memori a 5-24 mL, Route: l 00:27: IV, Drug form: SOLN, Q6H, Dosing Weight 118.182, kg, PRN Pain Score 7-10, Start date: 02/01/21 19:27:00 CDT, Duration: 30 day, Stop date: 03/03/21 19:26:00 CDT, 0 Zofran No Notes: Memoria 5-24 (Same as: l 00:26: Zofran) MEDICATION WASTE Product Size: 4 mg Product Wasted: ___ mg Tylenol No Notes: Do Memor ia 5-24 not exceed l 00:26: 4 gm/day. Vaibhav 00 (Same as: Tylenol) Tessalon No Notes: Memoria Perles 5-24 (Same As: l 00:26: Tessalon Perles) "Do Not Crush" Simethicone No Notes: Keagan dinah 5-24 (Same as: l 00:26: Mylicon) sennosides, No Notes: Keagan dinah MCC 8.6 MG 5-24 (Same as: l Oral Tablet 00:26: Senokot) He Docusate No Notes: Memoria Sodium 50 5-24 (Same as: l MG Oral 00:26: Colace) Capsule [Colace] Morphine No 1 mg, Memoria 5-24 Route: IV, l 00:26: ONCE, Vaibhav 00 Dosing Weight 118.182, kg, Priority: STAT, Start date: 02/01/21 19:26:00 CDT, Stop date: 02/01/21 19:26:00 CDT Sodium No 1,000 mL, Memori a Chloride 5-24 Rate: 75 l 0.9% IV 00:25: ml/hr, [place] 1000 mL 00 Infuse over: 13.3 hr, Route: IV, Dosing Weight 118.182 kg, Total Volume: 1,000, Priority: STAT, Start date: 02/01/21 19:25:00 CDT, Duration: 1 doses or times, Stop date: 02/02/21 8:42:00 CDT, 2.4, m2 Dilaudid No Notes: Memoria 5-23 Same as: l 23:59: Dilaudid [place] 00 Morphine No 4 mg, Memoria 5-23 Route: l 21:52: IVP, ONCE, Vaibhav Dosing Weight 118.182, kg, Priority: STAT, Start date: 02/01/21 16:52:00 CDT, Stop date: 02/01/21 16:52:00 CDT Zosyn No Notes: Memoria 5-23 (Same as: l 21:38: Zosyn) Dosing based on Piperacill in component MEDICATION WASTE Product Size: 3375 mg Product Wasted: ___ mg Acetaminoph No Notes: Keagan dinah en 325 MG / 5-23 (Same as: l Hydrocodone 19:02: Pitkin Maru nn Bitartrate 00 325/5) Do 5 MG Oral not exceed Tablet 4gm/day of acetaminop hen. Sodium No 1,000 mL, Memori a Chloride 5-23 1000 l 0.9% 19:02: ml/hr, [place] (Bolus) IV 00 Infuse Over: 1 hr, Route: IV, 1,000, Drug form: INJ, ONCE, Priority: STAT, Dosing Weight 118.182 kg, Start date: 02/01/21 14:02:00 CDT, Stop date: 02/01/21 14:02:00 CDT, 0 No known No Univers medications [facility] Vital Signs Vital Name Observation Time Observation Value Comments Source HEIGHT 2021-01-28 15:18:00 167.6 cm WEIGHT 2021-01-28 15:18:00 134.265 kg Body temperature 2020-04-23 06:37:00 35.78 Zully [facility] Respiratory rate 2020-04-23 06:37:00 18 /min [facility] Body height 2020-04-23 06:37:00 160 cm [facility] Body weight 2020-04-23 06:37:00 117.935 kg [facility] BMI 2020-04-23 06:37:00 46.06 kg/m2 [facility] Oxygen saturation in 2020-04-23 06:37:00 96 /min University of Arterial blood by [facility] Pulse oximetry Branch Systolic blood 2020-04-23 06:37:00 149 mm[Hg] Univer sity of pressure [place] [facility] Diastolic blood 2020-04-23 06:37:00 97 mm[Hg] Unive rsity [facility] [place] [facility] Heart rate 2020-04-23 06:37:00 92 /min [facility] [place] [facility] Body temperature 2020-04-23 06:37:00 35.78 Zully [facility] [place] [facility] Respiratory rate 2020-04-23 06:37:00 18 /min [facility] [place] [facility] Body height 2020-04-23 06:37:00 160 cm [facility] [place] [facility] Body weight 2020-04-23 06:37:00 117.935 kg [facility] [place] [facility] BMI 2020-04-23 06:37:00 46.06 kg/m2 [facility] [place] [facility] Oxygen saturation in 2020-04-23 06:37:00 96 /min [facility] Arterial blood by [facility] Pulse oximetry Branch Systolic blood 2020-04-23 06:37:00 149 mm[Hg] Univer [facility] [place] [facility] Diastolic blood 2020-04-23 06:37:00 97 mm[Hg] Unive [facility] Heart rate 2020-04-23 06:37:00 92 /min [facility] [place] [facility] Systolic (mm Hg) 2021-03-12 14:57:00 Keagan rial Vaibhav Diastolic (mm Hg) 2021-03-12 14:57:00 Mem orial [place] Heart Rate 2021-03-12 14:57:00 [facility] [place] Height 2021-03-12 14:57:00 170.18 cm [facility] [place] Weight 2021-03-12 14:57:00 [facility] [place] BMI Calculated 2021-03-12 14:57:00 Memori al [place] Systolic (mm Hg) 2021-02-12 17:16:00 Keagan rial Vaibhav Diastolic (mm Hg) 2021-02-12 17:16:00 Mem orial Vaibhav Heart Rate 2021-02-12 17:16:00 [facility] [place] Height 2021-02-12 17:16:00 167.64 cm [facility] [place] Weight 2021-02-12 17:16:00 Memorial Vaibhav BMI Calculated 2021-02-12 17:16:00 Memori al Vaibhav Temperature Oral (F) 2021-02-03 21:00:00 98.2 F Memorial Vaibhav Heart Rate 2021-02-03 21:00:00 Memorial Vaibhav Respitory Rate 2021-02-03 21:00:00 Memori al Vaibhav Systolic (mm Hg) 2021-02-03 21:00:00 Keagan rial [place] Diastolic (mm Hg) 2021-02-03 21:00:00 Mem orial Vaibhav Temperature Oral (F) 2021-02-03 17:00:00 98.3 F [facility] [place] Heart Rate 2021-02-03 17:00:00 [facility] [place] Respitory Rate 2021-02-03 17:00:00 Memori al Vaibhav Systolic (mm Hg) 2021-02-03 17:00:00 Keagan rial Vaibhav Diastolic (mm Hg) 2021-02-03 17:00:00 Mem orial [place] Temperature Oral (F) 2021-02-03 13:00:00 97.9 F Memorial Vaibhav Systolic (mm Hg) 2021-02-03 13:00:00 Keagan rial [place] Diastolic (mm Hg) 2021-02-03 13:00:00 Mem orial Vaibhav Heart Rate 2021-02-03 13:00:00 [facility] [place] Respitory Rate 2021-02-03 13:00:00 Memori al Vaibhav Temperature Oral (F) 2021-02-02 08:01:00 102.3 F Memorial Vaibhav Heart Rate 2021-02-02 08:01:00 [facility] [place] Systolic (mm Hg) 2021-02-02 08:01:00 Keagan rial [place] Diastolic (mm Hg) 2021-02-02 08:01:00 Mem orial Vaibhav Temperature Oral (F) 2021-02-02 05:00:00 99.6 F Memorial Vaibhav Heart Rate 2021-02-02 05:00:00 Memorial Vaibhav Respitory Rate 2021-02-02 05:00:00 Memori al [place] Systolic (mm Hg) 2021-02-02 05:00:00 Keagan rial [place] Diastolic (mm Hg) 2021-02-02 05:00:00 Mem orial [place] Temperature Oral (F) 2021-02-02 02:39:00 100.4 F [facility] [place] Heart Rate 2021-02-02 02:39:00 Memorial Vaibhav Respitory Rate 2021-02-02 02:39:00 Memori al Vaibhav Systolic (mm Hg) 2021-02-02 02:39:00 Keagan rial Vaibhav Diastolic (mm Hg) 2021-02-02 02:39:00 Mem orial [place] Respitory Rate 2021-02-02 01:28:00 Anny Guerreroann Height 2021-02-01 18:57:00 170.18 cm Abi Esposito BMI Calculated 2021-02-01 18:57:00 Anny Guerreroann Weight 2021-02-01 18:57:00 Abi Esposito Procedures Procedure Date / Time Performed Performing Clinician [facility] e Incision and drainage 2021-02-02 05:00:00 Anny Krause of perirectal abscess NOTICE OF PRIVACY 2020-04-23 06:29:31 Doctor Unassigned, No Univ [facility] PRACTICES Name Medical Branch CONSENT/REFUSAL FOR 2020-04-23 06:29:17 [facility] Branch TREATMENT Plan of Care Planned Activity Planned Date Details Comments Source Future Scheduled 2023-05-[address] [facility] Test 00:00:00 (Season Ended) [code = [facility] INFLUENZA VACCINE (Season Ended)] Future Scheduled 2022-09-[address] [facility] Test 00:00:00 (12+) [code = Medical Center DEPRESSION SCREENING (12+)] Future Scheduled 2022-01-[address] [facility] Test 00:00:00 Counseling and Medical Cente r Screening (12+) [code = Tobacco Cessation Counseling and Screening (12+)] Future Scheduled [address] [facility] 00:[facility]:00 malignant neoplasm of Medica l Center cervix (procedure) [code = 335936042] Future Scheduled [address] [facility] Test 00:00:00 (procedure) [code = Medical Center [id number]] Future Scheduled 2008 DTAP/TDAP/TD VACCINES [facility] Test 00:00:00 (1 - Tdap) [code = Medical C enter DTAP/TDAP/TD VACCINES (1 - Tdap)] Future Scheduled 2007 HEPATITIS C SCREENING [facility] Test 00:00:00 [code = HEPATITIS C Medical Center SCREENING] Future Scheduled [address] [facility] Test 00:00:00 0-64 YRS (1 - PCV) Medical C enter [code = PNEUMOCOCCAL VACCINE 0-64 YRS (1 - PCV)] Future Scheduled 1990-02-04 COVID-19 VACCINE (#1) [facility] Test 00:00:00 [code = COVID-[address] VACCINE (#1)] Encounters Start End Encounter Admission Attending Care Care Encounter Source Date/Time Date/Time Type Type Clinicians Facility Department ID 2021-06-18 2021-06-18 Ambulatory nullFlavo [facility] Multi 37 [id number] Memoria 15:15:00 15:15:00 Pre-Reg r Specialty 03 l Gordy Esposito 2021-06-18 2021-06-18 Outpatient PHILLY FRAGA [id number] Memoria 10:15:00 10:15:00 03 chelsie Esposito 2021-06-18 2021-06-18 Outpatient Vinicio [facility] [id number] 10:15:00 10:15:00 Mohummed 03 Radwan 2021-03-12 2021-03-13 Outpatient nullFlavo MG Multi 37 [id number] Memoria 14:45:00 04:59:59 r Specialty 02 l Gordy Esposito 2021-03-12 2021-03-12 Outpatient Vinicio [facility] [id number] 09:45:00 23:59:59 Mohummed 02 Radwan 2021-03-12 2021-03-12 Outpatient MHIE MHIE [id number] Memoria 09:45:00 09:45:00 02 [facility] 2021-02-12 2021-02-13 Outpatient nullFlavo [facility] Multi 37 [id number] Memoria 17:30:00 04:59:59 r Specialty 00 l [facility] 2021-02-12 2021-02-12 Outpatient Khani, MHMG MG [id number] 12:30:00 23:59:59 Mohummed 00 Radwan 2021-02-12 2021-02-12 Outpatient MHIE MHIE [id number] Memoria 12:30:00 12:30:00 00 [facility] 2021-02-01 2021-02-04 Inpatient nullFlavo [facility] [id number] Memoria 18:52:39 00:30:00 r [place] 00 [facility] 2021-02-01 2021-02-03 Inpatient E AJIBADE, MHBL MED [id number] MHBL 19:13:00 19:30:00 FREDERICK 2021-02-01 2021-02-03 Outpatient Ajibade, MHPL MHPL [id number] 13:52:39 19:30:00 Frederick 00 [place] 2021-02-02 2021-02-02 Outpatient MHIE MHIE [id number] Memoria 07:00:00 07:00:00 01 [facility] 2021-02-01 2021-02-01 Outpatient Sadhu, MHPL MHPL [id number] 13:52:39 13:52:39 Dany 00 2021-01-28 2021-01-28 Emergency ER [facility] Emergency [id number] [facility] 15:07:00 15:07:00 2020-04-23 2020-04-23 Emergency [facility] [id number] 01:53:00 02:06:00 Karen Lakhani [id number] [place] [id number] [place] [id number] 2020-04-23 2020-04-23 Emergency [facility] [id number] [facility] 01:53:00 02:06:00 Karen Lakhani [id number] i ty kristine Rosenberg [id number] [facility] [id number] [facility] 084 Branch 2020-04-23 2020-04-23 Emergency X [facility] ERT [id number] 01:28:00 01:28:00 [facility] Results Test Description Test Time Test Comments Results Result Comments Source CHEM PANEL 2021-02-03 09:28:00 Test Item Value Reference Range Interpretation Comme nts Calcium Lvl (test code = Calcium Lvl) 8.3 8.5-10.5 [facility] [id number] 09:28:00 Test Item Value Reference Range Interpretation Comments AGAP (test code = AGAP) 6.8 10.0-20.0 [facility] [id number] 09:28:00 Test Item Value Reference Range Interpretation Comments eGFR (test code = eGFR) 117 [facility] [id number] 09:28:00 Test Item Value Reference Range Interpretation Comments Segs (test code = Segs) 85.8 45.0-75.0 [facility] [id number] 09:28:00 Test Item Value Reference Range Interpretation Comments Lymphocytes (test code = Lymphocytes) 9.0 20.0-40.0 [facility] [id number] 09:28:00 Test Item Value Reference Range Interpretation Comments Monocytes (test code = Monocytes) 4.1 2.0-12.0 [facility] [id number] 09:28:00 Test Item Value Reference Range Interpretation Comments Eosinophils (test code = 0.8 See_Comment [A utomated message] The Eosinophils) system which nerated this result tra nsmitted reference range : <=4.0. The reference r cristiano was not used to int erpret this result as normal/abnormal . [facility] [id number] 09:28:00 Test Item Value Reference Range Interpretation Comments Basophils (test code = 0.3 See_Comment [Aut omated message] The Basophils) system which ge nerated this result tra nsmitted reference range : <=1.0. The reference r cristiano was not used to int erpret this result as normal/abnormal . [facility] [id number] 09:28:00 Test Item Value Reference Range Interpretation Comments Neutrophils # (test code = Neutrophils 18.6 1.5-8.1 #) [place] [id number] 09:28:00 Test Item Value Reference Range Interpretation Comments Lymphocytes # (test code = Lymphocytes 2.0 1.0-5.5 #) [place] [id number] 09:28:00 Test Item Value Reference Range Interpretation Comments Monocytes # (test code 0.9 See_Comment [Aut omated message] The = Monocytes #) system which generated this result tra nsmitted reference range : <=0.8. The reference r cristiano was not used to int erpret this result as normal/abnormal . [place] [id number] 09:28:00 Test Item Value Reference Range Interpretation Comments Eosinophils # (test code 0.2 See_Comment [A utomated message] The = Eosinophils #) system whic h generated this result tra nsmitted reference range : <=0.5. The reference r cristiano was not used to int erpret this result as normal/abnormal . [facility] [id number] 09:28:00 Test Item Value Reference Range Interpretation Comments Basophils # (test code 0.1 See_Comment [Aut omated message] The = Basophils #) system which generated this result tra nsmitted reference range : <=0.2. The reference r cristiano was not used to int erpret this result as normal/abnormal . [facility] [id number] 09:28:00 Test Item Value Reference Range Interpretation Comments WBC (test code = WBC) 21.7 3.7-10.4 [place] [id number] 09:28:00 Test Item Value Reference Range Interpretation Comments RBC (test code = RBC) 3.74 4.20-5.40 [place] [id number] 09:28:00 Test Item Value Reference Range Interpretation Comments Hgb (test code = Hgb) 11.0 12.0-16.0 [place] [address]-05-25 09:28:00 Test Item Value Reference Range Interpretation Comments Hct (test code = Hct) 33.5 36.0-48.0 [place] [id number] 09:28:00 Test Item Value Reference Range Interpretation Comments MCV (test code = MCV) 89.6 80.0-98.0 [place] [address]-05-25 09:28:00 Test Item Value Reference Range Interpretation Comments MCH (test code = MCH) 29.4 pg 27.0-31.0 [place] [address]-05-25 09:28:00 Test Item Value Reference Range Interpretation Comments MCHC (test code = MCHC) 32.8 32.0-36.0 [place] [address]-05-25 09:28:00 Test Item Value Reference Range Interpretation Comments RDW (test code = RDW) 13.7 11.5-14.5 [place] [address]-05-25 09:28:00 Test Item Value Reference Range Interpretation Comments Platelet (test code = Platelet) 403 133-450 [place] [address]-05-25 09:28:00 Test Item Value Reference Range Interpretation Comments MPV (test code = MPV) 7.3 7.4-10.4 [place] [id number] 09:28:00 Test Item Value Reference Range Interpretation Comments Magnesium Lvl (test code = Magnesium 2.5 1.8-2.4 Lvl) [place] [id number] 09:28:00 Test Item Value Reference Range Interpretation Comments Glucose Lvl (test code = Glucose Lvl) 114 70-99 [place] [address]-05-25 09:28:00 Test Item Value Reference Range Interpretation Comments BUN (test code = BUN) 7 7-22 [place] [address]-05-25 09:28:00 Test Item Value Reference Range Interpretation Comments Creatinine Lvl (test code = Creatinine 0.68 0.50-1.40 Lvl) [place] [id number] 09:28:00 Test Item Value Reference Range Interpretation Comments Sodium Lvl (test code = Sodium Lvl) 140 135-145 [place] [id number] 09:28:00 Test Item Value Reference Range Interpretation Comments Potassium Lvl (test code = Potassium 3.8 3.5-5.1 Lvl) [place] 441711-05-25 09:28:00 Test Item Value Reference Range Interpretation Comments Chloride Lvl (test code = Chloride Lvl) 109 95-109 [facility] [id number] 09:28:00 Test Item Value Reference Range Interpretation Comments CO2 (test code = CO2) -32 [facility] VaibhavCIPROFLOXACIN:SUSC:PT:ISOLATE:ORDQN:[id number] 12:38:00 Test Item Value Reference Range Interpretation Comments Gram Stain Report No WBC's Seen Many Gram (test code = Gram Negative Rods Many Gram Stain Report) Positive Cocci In Pairs [facility]IP[facility]OXAC[facility]:SUSC:PT:ISOLATE:ORDQN:[id number] 12:38:00 Test Item Value Reference Range Interpretation Comments Culture: Many Citrobacter Wound/Abscess amalonaticus Many w/Gram Stain (test Escherichia coli . Growth code = Culture: In Subculture Broth Only ; Wound/Abscess Group B Streptococcus , No w/Gram Stain) susceptibility performed since these organisms are predictably susceptible to penicillin. If patient is penicillin allergic or susceptibility testing for additional antibiotics is clinically warranted please call the laboratory. Alpha Streptococcus, Not Enterococcus [facility]SUSC:PT:ISOLATE:ORDQN:[id number] 12:38:00 Test Item Value Reference Range Interpretation Comments Escherichia coli (test code Escherichia coli = Escherichia coli) [facility]EREID[facility]FLOXACIN:SUSC:PT:ISOLATE:ORDQN:[id number] 12:38:00 Test Item Value Reference Range Interpretation Comments Citrobacter Citrobacter amalonaticus (test code amalonaticus = Citrobacter amalonaticus) [facility]: [id number] 12:38:00 Test Item Value Reference Range Interpretation Comments Culture: Anaerobic Many Bacteroides (test code = Culture: fragilis Anaerobic) [facility] [id number] 09:37:00 Test Item Value Reference Range Interpretation Comments Albumin Lvl (test code = Albumin Lvl) 2.5 3.5-5.0 [facility]2021-05-24 09:37:00 Test Item Value Reference Range Interpretation Comments ALT (test code = ALT) 31 See_Comment [Auto mated message] The system which ge nerated this result transmit nini reference range : <=65. The reference range was not used to interpr et this result as tonja l/abnormal. [facility] HospitalCodagenix, Inc[facility] [id number] 09:37:00 Test Item Value Reference Range Interpretation Comments AST (test code = AST) 18 See_Comment [Auto mated message] The system which ge nerated this result transmit nini reference range : <=37. The reference range was not used to interpr et this result as tonja l/abnormal. [place] 441711-05-24 09:37:00 Test Item Value Reference Range Interpretation Comments Alk Phos (test code = Alk Phos) 91 39-136 [place] 441711-05-24 09:37:00 Test Item Value Reference Range Interpretation Comments Bili Total (test code = Bili Total) 0.4 0.2-1.3 [place] [address]-05-24 09:37:00 Test Item Value Reference Range Interpretation Comments AGAP (test code = AGAP) 12.2 10.0-20.0 [place] 441711-05-24 09:37:00 Test Item Value Reference Range Interpretation Comments B/C Ratio (test code = B/C Ratio) 7 1 6-25 [place] [address]-05-24 09:37:00 Test Item Value Reference Range Interpretation Comments Globulin (test code = Globulin) 4.4 2.7-4.2 [place] 441711-05-24 09:37:00 Test Item Value Reference Range Interpretation Comments A/G Ratio (test code = A/G Ratio) 0.6 1 0.7-1.6 [place] [address]-05-24 09:37:00 Test Item Value Reference Range Interpretation Comments eGFR (test code = eGFR) 108 [place] [address]-05-24 09:37:00 Test Item Value Reference Range Interpretation Comments Magnesium Lvl (test code = Magnesium 1.9 1.8-2.4 Lvl) [place] [address]-05-24 09:37:00 Test Item Value Reference Range Interpretation Comments WBC (test code = WBC) 27.8 3.7-10.4 [place] [address]-05-24 09:37:00 Test Item Value Reference Range Interpretation Comments RBC (test code = RBC) 4.00 4.20-5.40 [place] [address]-05-24 09:37:00 Test Item Value Reference Range Interpretation Comments Hgb (test code = Hgb) 11.9 12.0-16.0 [facility] AmericaXldeihyOOLFEIOHIJ4306-81-81 09:37:00 Test Item Value Reference Range Interpretation Comments Hct (test code = Hct) 35.5 36.0-48.0 [facility] AmericaMnbaugfTCXYQPLRNH1735-63-54 09:37:00 Test Item Value Reference Range Interpretation Comments MCV (test code = MCV) 88.6 80.0-98.0 [facility] AmericaOgvzbkdOVHWTXRLWA7295-93-84 09:37:00 Test Item Value Reference Range Interpretation Comments MCH (test code = MCH) 29.8 pg 27.0-31.0 [facility] AmericaEehdkovSIFZHHKTRV9760-04-97 09:37:00 Test Item Value Reference Range Interpretation Comments MCHC (test code = MCHC) 33.6 32.0-36.0 [facility] AmericaWforgbiACXVFYNTWB3757-87-99 09:37:00 Test Item Value Reference Range Interpretation Comments RDW (test code = RDW) 13.3 11.5-14.5 [facility] AmericaMgnhdhsMGSFNVZUYY6507-38-61 09:37:00 Test Item Value Reference Range Interpretation Comments Platelet (test code = Platelet) 440 133-450 [facility] AmericaMsxfssqFDOCAHCSQU7995-60-50 09:37:00 Test Item Value Reference Range Interpretation Comments MPV (test code = MPV) 7.8 7.4-10.4 [facility] AmericaGtbpvpjNOYBILCBMY2623-50-55 09:37:00 Test Item Value Reference Range Interpretation Comments Segs (test code = Segs) 88.1 45.0-75.0 [facility] AmericaIngvybrTRTALVXUAE3854-20-22 09:37:00 Test Item Value Reference Range Interpretation Comments Lymphocytes (test code = Lymphocytes) 4.7 20.0-40.0 [place] 764521-05-24 09:37:00 Test Item Value Reference Range Interpretation Comments Monocytes (test code = Monocytes) 6.8 2.0-12.0 [place] 764521-05-24 09:37:00 Test Item Value Reference Range Interpretation Comments Eosinophils (test code = 0.1 See_Comment [A utomated message] The Eosinophils) system which ge nerated this result tra nsmitted reference range : <=4.0. The reference r cristiano was not used to int erpret this result as normal/abnormal . [place] [address]-05-24 09:37:00 Test Item Value Reference Range Interpretation Comments Basophils (test code = 0.3 See_Comment [Aut omated message] The Basophils) system which ge nerated this result tra nsmitted reference range : <=1.0. The reference r cristiano was not used to int erpret this result as normal/abnormal . [facility] AmericaNfpsgqnERQGRAODBR8883-41-94 09:37:00 Test Item Value Reference Range Interpretation Comments Neutrophils # (test code = Neutrophils 24.5 1.5-8.1 #) [facility] AmericaTdlpnijCVRKICFPXQ6988-31-20 09:37:00 Test Item Value Reference Range Interpretation Comments Lymphocytes # (test code = Lymphocytes 1.3 1.0-5.5 #) [place] 764521-05-24 09:37:00 Test Item Value Reference Range Interpretation Comments Monocytes # (test code 1.9 See_Comment [Aut omated message] The = Monocytes #) system which generated this result tra nsmitted reference range : <=0.8. The reference r cristiano was not used to int erpret this result as normal/abnormal . [facility] AmericaAxqlljgMAWOCIFFYN7052-70-20 09:37:00 Test Item Value Reference Range Interpretation Comments Basophils # (test code 0.1 See_Comment [Aut omated message] The = Basophils #) system which generated this result tra nsmitted reference range : <=0.2. The reference r cristiano was not used to int erpret this result as normal/abnormal . [facility] [id number] 09:37:00 Test Item Value Reference Range Interpretation Comments Hgb A1C (test code = Hgb A1C) 5.6 [facility] HospitalCod[facility] Inc[facility] [id number] 09:37:00 Test Item Value Reference Range Interpretation Comments Glucose Lvl (test code = Glucose Lvl) 112 70-99 [place] [address]-05-24 09:37:00 Test Item Value Reference Range Interpretation Comments BUN (test code = BUN) 5 7-22 [place] [address]-05-24 09:37:00 Test Item Value Reference Range Interpretation Comments Creatinine Lvl (test code = Creatinine 0.74 0.50-1.40 Lvl) [place] [address]-05-24 09:37:00 Test Item Value Reference Range Interpretation Comments Sodium Lvl (test code = Sodium Lvl) 135 135-145 [facility] [id number] 09:37:00 Test Item Value Reference Range Interpretation Comments Potassium Lvl (test code = Potassium 3.2 3.5-5.1 Lvl) [facility] [id number] 09:37:00 Test Item Value Reference Range Interpretation Comments Chloride Lvl (test code = Chloride Lvl) 101 95-109 [facility]2021-05-24 09:37:00 Test Item Value Reference Range Interpretation Comments CO2 (test code = CO2) 25 24-32 [facility]2021-05-24 09:37:00 Test Item Value Reference Range Interpretation Comments Calcium Lvl (test code = Calcium Lvl) 8.5 8.5-10.5 [facility]2021-05-24 09:37:00 Test Item Value Reference Range Interpretation Comments Total Protein (test code = Total 6.9 6.4-8.4 Protein) [facility] HospitalEmcohzfYFXGFTNEIY2136-92-88 00:40:00 Test Item Value Reference Range Interpretation Comments Coronavirus (COVID-19) Not Detected (02/01/21 JOAQUIM (test code = 7:40 PM) Coronavirus (COVID-19) JOAQUIM) [facility] [id number] 00:29:00 Test Item Value Reference Range Interpretation Comments ABO/Rh (test code = ABO/Rh) O POS [facility] [id number] 00:29:00 Test Item Value Reference Range Interpretation Comments Antibody Scrn (test Negative (02/01/21 7:29 code = Antibody Scrn) PM) [facility] [id number] 00:29:00 Test Item Value Reference Range Interpretation Comments Lactic Acid Lvl (test code = Lactic 1.2 0.5-2.2 Acid Lvl) [facility] [id number] 23:13:00 Test Item Value Reference Range Interpretation Comments S. aureus (test code = Not Detected (02/01/21 S. aureus) 6:13 PM) [facility] [id number] 23:13:00 Test Item Value Reference Range Interpretation Comments S. epidermidis (test Not Detected (02/01/21 code = S. epidermidis) 6:13 PM) [facility]2021-05-23 23:13:00 Test Item Value Reference Range Interpretation Comments S. lugdunensis (test Not Detected (02/01/21 code = S. lugdunensis) 6:13 PM) [facility]2021-05-23 23:13:00 Test Item Value Reference Range Interpretation Comments S. anginosus grp (test Not Detected (02/01/21 code = S. anginosus 6:13 PM) grp) [facility]2021-05-23 23:13:00 Test Item Value Reference Range Interpretation Comments S. agalactiae (test code Not Detected (02/01/21 = S. agalactiae) 6:13 PM) [facility]2021-05-23 23:13:00 Test Item Value Reference Range Interpretation Comments S. pneumoniae (test code Not Detected (02/01/21 = S. pneumoniae) 6:13 PM) [facility]2021-05-23 23:13:00 Test Item Value Reference Range Interpretation Comments S. pyogenes (test code Not Detected (02/01/21 = S. pyogenes) 6:13 PM) [facility]2021-05-23 23:13:00 Test Item Value Reference Range Interpretation Comments E. faecalis (test code Not Detected (02/01/21 = E. faecalis) 6:13 PM) [facility]2021-05-23 23:13:00 Test Item Value Reference Range Interpretation Comments E. faecium (test code Not Detected (02/01/21 = E. faecium) 6:13 PM) [facility]2021-05-23 23:13:00 Test Item Value Reference Range Interpretation Comments Staphylococcus spp. (test Detected code = Staphylococcus *ABN*(02/01/21 6:13 spp.) PM) [facility]2021-05-23 23:13:00 Test Item Value Reference Range Interpretation Comments Streptococcus spp. (test Not Detected code = Streptococcus (02/01/21 6:13 PM) spp.) [facility]2021-05-23 23:13:00 Test Item Value Reference Range Interpretation Comments Listeria spp. (test Not Detected (02/01/21 code = Listeria spp.) 6:13 PM) [place] [id number] 23:13:00 Test Item Value Reference Range Interpretation Comments mecA Methicillin Not Detected (02/01/21 Resistance (test code = 6:13 PM) mecA Methicillin Resistance) [place] 117761-05-23 23:13:00 Test Item Value Reference Range Interpretation Comments Hans Vancomycin Not Detected (02/01/21 Resistance (test code = 6:13 PM) Hans Vancomycin Resistance) [place] [address]-05-23 23:13:00 Test Item Value Reference Range Interpretation Comments vanB Vancomycin Not Detected (02/01/21 Resistance (test code = 6:13 PM) vanB Vancomycin Resistance) [place] 441711-05-23 20:56:00 Test Item Value Reference Range Interpretation Comments Glucose Lvl (test code = Glucose Lvl) 108 70-99 [place] 441711-05-23 20:56:00 Test Item Value Reference Range Interpretation Comments BUN (test code = BUN) 4 7-22 [place] 441711-05-23 20:56:00 Test Item Value Reference Range Interpretation Comments Creatinine Lvl (test code = Creatinine 0.71 0.50-1.40 Lvl) [place] 441711-05-23 20:56:00 Test Item Value Reference Range Interpretation Comments Sodium Lvl (test code = Sodium Lvl) 136 135-145 [place] 441711-05-23 20:56:00 Test Item Value Reference Range Interpretation Comments Potassium Lvl (test code = Potassium 3.7 3.5-5.1 Lvl) [place] 441711-05-23 20:56:00 Test Item Value Reference Range Interpretation Comments Chloride Lvl (test code = Chloride Lvl) 105 95-109 [place] 441711-05-23 20:56:00 Test Item Value Reference Range Interpretation Comments CO2 (test code = CO2) 24 24-32 [place] 441711-05-23 20:56:00 Test Item Value Reference Range Interpretation Comments Calcium Lvl (test code = Calcium Lvl) 8.5 8.5-10.5 [place] 441711-05-23 20:56:00 Test Item Value Reference Range Interpretation Comments AGAP (test code = AGAP) 10.7 10.0-20.0 [facility]2021-05-23 20:56:00 Test Item Value Reference Range Interpretation Comments eGFR (test code = eGFR) 114 [place] 577091-05-23 20:56:00 Test Item Value Reference Range Interpretation Comments S Preg (test code = S Negative *NA*(02/01/21 Preg) 3:56 PM) [facility] AmericaAzyyyagFHPQZTIZHY8884-82-86 20:24:00 Test Item Value Reference Range Interpretation Comments WBC (test code = WBC) 29.6 3.7-10.4 [place] 764521-05-23 20:24:00 Test Item Value Reference Range Interpretation Comments RBC (test code = RBC) 4.51 4.20-5.40 [facility] AmericaXnftdwaPSQMZSOXEE5671-69-78 20:24:00 Test Item Value Reference Range Interpretation Comments Hgb (test code = Hgb) 13.2 12.0-16.0 [facility] AmericaQnafouwLPCUSXBWLK3208-70-58 20:24:00 Test Item Value Reference Range Interpretation Comments Hct (test code = Hct) 39.7 36.0-48.0 [facility] AmericaQizhmzjMCZZVKVUDK9532-55-30 20:24:00 Test Item Value Reference Range Interpretation Comments MCV (test code = MCV) 88.0 80.0-98.0 [facility] AmericaBcfkzavTBZAKPUKLG5578-75-26 20:24:00 Test Item Value Reference Range Interpretation Comments MCH (test code = MCH) 29.3 pg 27.0-31.0 [facility] AmericaQxwnhctURKKLPQMJE4255-97-05 20:24:00 Test Item Value Reference Range Interpretation Comments MCHC (test code = MCHC) 33.3 32.0-36.0 [facility] AmericaDafkktsOHIBTQBSOS1028-39-64 20:24:00 Test Item Value Reference Range Interpretation Comments RDW (test code = RDW) 13.1 11.5-14.5 [place] 764521-05-23 20:24:00 Test Item Value Reference Range Interpretation Comments Platelet (test code = Platelet) 459 047-450 [facility] AmericaNlyxmbpCEMEOGMUMX7174-69-98 20:24:00 Test Item Value Reference Range Interpretation Comments MPV (test code = MPV) 7.7 7.4-10.4 [place] [address]-05-23 20:24:00 Test Item Value Reference Range Interpretation Comments Neutrophils # (test code = Neutrophils 24.9 1.5-8.1 #) [place] [address]-05-23 20:24:00 Test Item Value Reference Range Interpretation Comments Lymphocytes # (test code = Lymphocytes 2.1 1.0-5.5 #) [place] 764521-05-23 20:24:00 Test Item Value Reference Range Interpretation Comments Monocytes # (test code 2.7 See_Comment [Aut omated message] The = Monocytes #) system which generated this result tra nsmitted reference range : <=0.8. The reference r cristiano was not used to int erpret this result as normal/abnormal . [place] [address]-05-23 20:24:00 Test Item Value Reference Range Interpretation Comments Segs (test code = Segs) 81.0 45.0-75.0 [place] [address]-05-23 20:24:00 Test Item Value Reference Range Interpretation Comments Bands (test code = 3.0 See_Comment [Automat ed message] The Bands) system which ge nerated this result transmit nini reference range : <=11.0. The reference r cristiano was not used to interpr et this result as tonja l/abnormal. [place] 764521-05-23 20:24:00 Test Item Value Reference Range Interpretation Comments Lymphocytes (test code = Lymphocytes) 7.0 20.0-40.0 [place] 764521-05-23 20:24:00 Test Item Value Reference Range Interpretation Comments Monocytes (test code = Monocytes) 9.0 2.0-12.0 [place] [address]-05-23 20:24:00 Test Item Value Reference Range Interpretation Comments Atypical Lymphs (test code = Atypical 0.0 Lymphs) [place] [address]-05-23 20:24:00 Test Item Value Reference Range Interpretation Comments RBC Morph (test code = Normal (02/01/21 3:24 RBC Morph) PM) [place] 764521-05-23 20:24:00 Test Item Value Reference Range Interpretation Comments Plt Morph (test code = Normal (02/01/21 3:24 Plt Morph) PM) [facility]
--- NOTE | 2023-01-07 17:56 | EDPHYS ---
Physician Documentation [facility] Name: Kaila Singh Age: 32 yrs Sex: Female : 1990 Arrival Date: 01/07/2023 Time: 16:24 Bed 9 Private MD: ED Physician Juan Tanner HPI: 01/07 17:16 This 32 yrs old Female presents to ER via Unassigned with complaints of Sore Throat. snw 17:16 The patient presents with sore throat. The patient describes throat pain as constant, snw dry, scratchy, suffocating. Onset: The symptoms/episode began/occurred suddenly, yesterday. Severity of symptoms: At their worst the symptoms were moderate, in the emergency department the symptoms are unchanged. Associated signs and symptoms: The patient has no apparent associated signs or symptoms. The patient has experienced similar episodes in the past. The patient has not recently seen a physician. 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 - Social history:: Smoking status: Patient denies any tobacco usage or history of. ROS: 17:16 Constitutional: Negative for fever, chills, and weight loss, Eyes: Negative for injury, snw pain, redness, and discharge, Neck: Negative for injury, pain, and swelling, Cardiovascular: Negative for chest pain, palpitations, and edema, Respiratory: Negative for shortness of breath, cough, wheezing, and pleuritic chest pain, Abdomen/GI: Negative for abdominal pain, nausea, vomiting, diarrhea, and constipation, Back: Negative for injury and pain, : Negative for injury, bleeding, discharge, and swelling, MS/Extremity: Negative for injury and deformity, Skin: Negative for injury, rash, and discoloration, Neuro: Negative for headache, weakness, numbness, tingling, and seizure, Psych: Negative for depression, anxiety, suicide ideation, homicidal ideation, and hallucinations. 17:16 ENT: Positive for sore throat. Exam: 17:57 Constitutional: This is a well developed, well nourished patient who is awake, alert, snw and in no acute distress. Head/Face: Normocephalic, atraumatic. Eyes: Pupils equal round and reactive to light, extra-ocular motions intact. Lids and lashes normal. Conjunctiva and sclera are non-icteric and not injected. Cornea within normal limits. Periorbital areas with no swelling, redness, or edema. Neck: Trachea midline, no thyromegaly or masses palpated, and no cervical lymphadenopathy. Supple, full range of motion without nuchal rigidity, or vertebral point tenderness. No Meningismus. Chest/axilla: Normal chest wall appearance and motion. Nontender with no deformity. No lesions are appreciated. Cardiovascular: Regular rate and rhythm with a normal S1 and S2. No gallops, murmurs, or rubs. Normal PMI, no JVD. No pulse deficits. Respiratory: Lungs have equal breath sounds bilaterally, clear to auscultation and percussion. No rales, rhonchi or wheezes noted. No increased work of breathing, no retractions or nasal flaring. Abdomen/GI: Soft, non-tender, with normal bowel sounds. No distension or tympany. No guarding or rebound. No evidence of tenderness throughout. Back: No spinal tenderness. No costovertebral tenderness. Full range of motion. Skin: Warm, dry with normal turgor. Normal color with no rashes, no lesions, and no evidence of cellulitis. MS/ Extremity: Pulses equal, no cyanosis. Neurovascular intact. Full, normal range of motion. Neuro: Awake and alert, GCS 15, oriented to person, place, time, and situation. Cranial nerves II-XII grossly intact. Motor strength 5/5 in all extremities. Sensory grossly intact. Cerebellar exam normal. Normal gait. Psych: Awake, alert, with orientation to person, place and time. Behavior, mood, and affect are within normal limits. 17:57 ENT: External ear(s): no acute changes, Ear canal(s): are normal, TM's: are normal, Nose: is normal, Mouth: is normal, Posterior pharynx: Tonsils: bilaterally enlarged, with erythema, with exudate, erythema, that is moderate, exudate, that is moderate, Voice: no noted abscess. Vital Signs: 17:16 BP 116 / 77; Pulse 78; Resp 18; Temp 99.1(O); Pulse Ox 97% on R/A; Weight 113.4 kg; mb9 Height 5 ft. 6 in. ; 18:17 BP 113 / 69; Pulse 78; Resp 18; Pulse Ox 99% ; mb9 17:16 Body Mass Index 40.35 (113.40 kg, 167.64 cm) mb9 MDM: 16:52 Patient medically screened. snw 17:16 Differential diagnosis: Allergic rhinitis, epiglottitis, laryngitis, peritonsillar snw abscess pharyngitis, tonsillitis. Data reviewed: vital signs, nurses notes. 01/07 17:28 Order name: Strep; Complete Time: 17:46 mb9 Administered Medications: 18:00 Drug: Decadron - Dexamethasone IVP 10 mg {Note: as ordered.} Route: IVP; Site: Other; mb9 18:17 Follow up: Response: No adverse reaction mb9 18:01 Drug: penicillin G Benzathine IM 1.2 million units Route: IM; Site: left gluteus; mb9 18:17 Follow up: Response: No adverse reaction mb9 Disposition: 19:35 Co-signature as Attending Physician, Juan Tanner DO. ms3 19:35 I was immediately available on-site in the Emergency Department for consultation in the ms3 care of the patient. Disposition Summary: 01/07/23 17:56 Discharge Ordered Location: Home snw Condition: Stable snw Diagnosis - Streptococcal pharyngitis snw Followup: snw - With: Emergency Department - When: As needed - Reason: Worsening of condition Followup: snw - With: Private Physician - When: 2 - 3 days - Reason: Recheck today's complaints, Continuance of care, Re-evaluation by your physician Discharge Instructions: - Discharge Summary Sheet snw - Strep Throat, Adult snw - Rehydration, Adult snw Forms: - Work release form snw - Medication Reconciliation Form snw - Thank You Letter snw - Antibiotic Education snw - Prescription Opioid Use snw Prescriptions: - Prednisone 20 mg Oral Tablet - take 2 tablets by ORAL route once daily for 5 days; 10 tablet; Refills: 0, snw Product Selection Permitted - Pepcid 20 mg Oral Tablet - take 1 tablet by ORAL route once daily; 20 tablet; Refills: 0, Product snw Selection Permitted - promethazine 25 mg Oral Tablet - take 1 tablet by ORAL route every 6 hours As needed; 20 tablet; Refills: 0, snw Product Selection Permitted Signatures: Dispatcher [employer], TRANSCRIBING MACHINE MECHANIC-C TRANSCRIBING MACHINE MECHANIC-Csnw Juan Tanner DO DO ms3 Jes Jefferson RN RN mb9
--- NOTE | 2023-01-07 17:56 | ER ---
Nurse's Notes [facility] Name: Kaila Singh Age: 32 yrs Sex: Female : 1990 Arrival Date: 01/07/2023 Time: 16:24 Bed 9 Private MD: Diagnosis: Streptococcal pharyngitis Presentation: 01/07 17:16 Chief complaint: Patient states: "My throat has been sore since yesterday. My tonsils mb9 are enlarged and I feel like I have bumps in my throat. It's making me nauseous". Coronavirus screen: Vaccine status: Patient reports being unvaccinated. Ebola Screen: No symptoms or risks identified at this time. Initial Sepsis Screen: Does the patient meet any 2 criteria? No. Patient's initial sepsis screen is negative. Does the patient have a suspected source of infection? No. Patient's initial sepsis screen is negative. Risk Assessment: Do you want to hurt yourself or someone else? Patient reports no desire to harm self or others. Onset of symptoms was January 06, 2023. 17:16 Method Of Arrival: Ambulatory mb9 17:16 Acuity: WOLF 4 mb9 Triage Assessment: 17:18 General: Appears in no apparent distress. Behavior is cooperative. Pain: Complains of mb9 pain in throat Quality of pain is described as throbbing, Pain began 1 day ago. Is intermittent. EENT: Throat is reddened has enlarged tonsils. Neuro: Level of Consciousness is awake, alert, obeys commands, Oriented to person, place, time, situation, Appropriate for age. Cardiovascular: Patient's skin is warm and dry. Respiratory: Airway is patent Respiratory effort is even, unlabored, Respiratory pattern is regular, symmetrical. GI: Reports nausea, Patient currently denies diarrhea. Derm: Skin is pink, warm \\T\\ dry. Musculoskeletal: Range of motion: intact in all extremities. 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 - Social history:: Smoking status: Patient denies any tobacco usage or history of. Screenin:19 [facility] ED Fall Risk Assessment (Adult) History of falling in the last 3 months, mb9 including since admission No falls in past 3 months (0 pts) Confusion or Disorientation No (0 pts) Intoxicated or Sedated No (0 pts) Impaired Gait No (0 pts) Mobility Assist Device Used No (0 pt) Altered Elimination No (0 pt) Score/Fall Risk Level 0 - 2 = Low Risk Oriented to surroundings, Maintained a safe environment, Educated pt \\T\\ family on fall prevention, incl call for assistance when getting out of bed. Abuse screen: Denies threats or abuse. Nutritional screening: No deficits noted. Tuberculosis screening: No symptoms or risk factors identified. Assessment: 17:19 Reassessment: see triage assessment. mb9 18:17 Reassessment: No changes from previously documented assessment. Patient and/or family mb9 updated on plan of care and expected duration. Pain level reassessed. Patient is alert, oriented x 3, equal unlabored respirations, skin warm/dry/pink. Vital Signs: 17:16 BP 116 / 77; Pulse 78; Resp 18; Temp 99.1(O); Pulse Ox 97% on R/A; Weight 113.4 kg; mb9 Height 5 ft. 6 in. ; 18:17 BP 113 / 69; Pulse 78; Resp 18; Pulse Ox 99% ; mb9 17:16 Body Mass Index 40.35 (113.40 kg, 167.64 cm) mb9 ED Course: 16:27 Patient arrived in ED. mr 16:32 Cierra Mckinley FNP-C [facility] snw 16:32 Juan Tanner DO is Attending Physician. snw 17:16 Jes Jefferson, TEODORO is Primary Nurse. mb9 17:16 Arm band placed on. mb9 17:17 Triage completed. mb9 17:20 No provider procedures requiring assistance completed. mb9 18:18 Patient did not have IV access during this emergency room visit. mb9 Administered Medications: 18:00 Drug: Decadron - Dexamethasone IVP 10 mg {Note: as ordered.} Route: IVP; Site: Other; mb9 18:17 Follow up: Response: No adverse reaction mb9 18:01 Drug: penicillin G Benzathine IM 1.2 million units Route: IM; Site: left gluteus; mb9 18:17 Follow up: Response: No adverse reaction mb9 Medication: 17:19 VIS not applicable for this client. mb9 Outcome: 17:56 Discharge ordered by MD. shah 18:18 Discharged to home ambulatory. mb9 18:18 Condition: stable 18:18 Discharge instructions given to patient, Instructed on discharge instructions, follow up and referral plans. Demonstrated understanding of instructions, follow-up care, medications, Prescriptions given X 3. 18:19 Patient left the ED. mb9 Signatures: Cierra Mckinley, PROPERTY MANAGEMENT SUPERVISOR-C PROPERTY MANAGEMENT SUPERVISOR-Csnw Jes Boyd mr Jefferson, Jes Maguire, RN RN mb9 Corrections: (The following items were deleted from the chart) 18:18 18:17 BP 113 / 69; Pulse 16bpm; Resp 18bpm; Pulse Ox 99%; mb9 mb9
[2023-01-07 18:32] VITALS: TEMP 99.1
[2023-01-07 18:33] VITALS: BP 113/69; O2SAT 99
== END 2023-01-07 18:19 | disposition home or self-care (01) ==
LOC: ER 16:24
DX: J02.0 Streptococcal pharyngitis (principal)
CPT/HCPCS: 87081

== ENCOUNTER 2023-02-05 17:07 | Emergency (ER) | payer SELFPAY ==
--- OUTSIDE RECORDS SUMMARY | 2023-02-05 17:13 | XMS REPORT | Continuity of Care Document ---
:1990 Author Organization [facility] t Address [address] [facility] [place] [address] Care Team Providers Name Role Phone No, Pcp [facility] Primary Care Physician Unavailable Philip Mooney Attending Clinician FREDERICK QUINTEROS Attending Clinician Unavailable Frederick Quinteros Attending Clinician [phone] Dany Nino Attending Clinician Karen Cagle Attending Clinician FREDERICK QUINTEROS Admitting Clinician Unavailable Frederick Quinteros Admitting Clinician Dany Nino Admitting Clinician Problems Condition Condition Condition Status Onset Resolution Last Treating Co mments Source Name Details Category Date Date Treatment Clinician Date PERIRECTAL PERIRECTA Diagnosis Active 2021-02-03 Memoria ABSCESS L ABSCESS 02-01 11:04:00 l Active 00:00: Vaibhav 02/01/[address] [place] [address] FEVER/ FEVER/ Diagnosis Active 2021-02-01 Me moria BOILS BOILS 02-01 14:23:00 l Active 00:00: Vaibhav 02/01/2021 00 [facility] Morbid Morbid Problem Active 2021-06-20 Keagan dinah obesity obesity 21:34:30 l (disorder) (disorder) He rmann Active Problem 06/20/2021 [facility] RECTAL RECTAL Diagnosis Active 2021-02-03 Me moria ABSCESS ABSCESS 11:04:00 l Active [facility] No known No known Disease Unive rs active active ity of problems problems [facility] History of Past Illness Condition Condition Condition Status Onset Resolution Last Treating Co mments Source Name Details Category Date Date Treatment Clinician Date Morbid Morbid Problem 2021-02-02 2021-02-02 Memoria (severe) (severe) 02-02 09:32:39 09:32:39 l obesity obesity 01:53: Vaibhav due to due to 58 excess excess calories calories 02/02/2021 02/02/2021 [place] Allergies, Adverse Reactions, Alerts Allergy Allergy Status Severity Reaction(s) Onset Inactive Treating Comm ents Source Name Type Date Date Clinician No Known No Known Active Memori a Medicati Medicati l on on [place] Allergie Allergie s s NO KNOWN Drug Active Univers ALLERGIE Class ity of S [facility] NO KNOWN Allergy Active [facility] Social History Social Habit Start Date Stop Date Quantity Comments Source History of Occasional tobacco [facility] tobacco use smoker [facility] Exposure to Not sure University of SARS-CoV-2 [facility] (event) Branch Tobacco use and 2021-01-28 2021-01-[address] [facility] exposure 00:00[facility]00 00[facility]00[facility]00 [facility]user [facility] Alcohol intake 2021-01-28 2021-01-28 Ex-drinker [facility] 00[facility]finding[facility] Sex Assigned At [address] [facility] 00:[facility]00 [facility] Smoking Status Start Date Stop Date Source Social History [facility] Social History 2021-02-02 02:17:47 [facility] Occasional tobacco smoker 2021-01-28 00:00:00 I [facility] Medications Ordered Filled Start Stop Current Ordering Indication Dosage Frequency Signature Comments Components Source Medication Medication Date Date Medication? Clinician (SIG) Name Name POLYETHYLEN 2021-0 Yes 17 gm, PO, Memoria E GLYCOL 5-25 BID, X 14 l [id number] 22:23: day, # 255 Her ribeiro MG/ML Oral 00 gm, 0 Solution Refill(s), Pharmacy: [facility], 170.18, cm, 02/01/21 13:57:00 CDT, Height, 118.182, kg, 02/01/21 13:57:00 CDT, Weight tramadol Yes 50 mg = 1 Keagan dinah hydrochlori 5-25 tab, PO, l de 50 MG 22:23: Q6H, PRN Maru nn Oral Tablet 00 Pain, X 5 day, # 24 tab, 0 Refill(s), Pharmacy: [facility], 170.18, cm, 02/01/21 13:57:00 CDT, Height, 118.182, kg, 02/01/21 13:57:00 CDT, Weight POLYETHYLEN 0 Yes 17 gm, PO, Memoria E GLYCOL 5-25 BID, X 14 l [id number] 22:23: day, # 255 Her ribeiro MG/ML Oral 00 gm, 0 Solution Refill(s), Pharmacy: [facility], 170.18, cm, 02/01/21 13:57:00 CDT, Height, 118.182, kg, 02/01/21 13:57:00 CDT, Weight tramadol Yes 50 mg = 1 Keagan dinah hydrochlori 5-25 tab, PO, l de 50 MG 22:23: Q6H, PRN Maru nn Oral Tablet 00 Pain, X 5 day, # 24 tab, 0 Refill(s), [facility]acy: [facility] 149, 170.18, cm, 02/01/21 13:57:00 CDT, Height, 118.182, kg, 02/01/21 13:57:00 CDT, Weight ciprofloxac Yes 500 mg = 1 Memoria in 500 mg 5-25 tab, PO, l oral tablet 22:22: Q12H, X 10 [place] 00 day, # 20 tab, 0 Refill(s), Pharmacy: [facility], 170.18, cm, 02/01/21 13:57:00 CDT, Height, 118.182, kg, 02/01/21 13:57:00 CDT, Weight Amoxicillin Yes 875 mg = 1 Memoria 875 MG / 5-25 tab, PO, l Clavulanate 22:22: BID, X 10 H ermann 125 MG Oral 00 day, # 20 Tablet tab, 0 [Augmentin Refill(s), 875-mg] Pharmacy: [facility] 149, 170.18, cm, 02/01/21 13:57:00 CDT, Height, 118.182, kg, 02/01/21 13:57:00 CDT, Weight ciprofloxac Yes 500 mg = 1 Memoria in 500 mg 5-25 tab, PO, l oral tablet 22:22: Q12H, X 10 Vaibhav 00 day, # 20 tab, 0 Refill(s), Pharmacy: [facility] 149, 170.18, cm, 02/01/21 13:57:00 CDT, Height, 118.182, kg, 02/01/21 13:57:00 CDT, Weight Amoxicillin Yes 875 mg = 1 Memoria 875 MG / 5-25 tab, PO, l Clavulanate 22:22: BID, X 10 H ermann 125 MG Oral 00 day, # 20 Tablet tab, 0 [Augmentin Refill(s), 875-mg] Pharmacy: [facility] 149, 170.18, cm, 02/01/21 13:57:00 CDT, Height, 118.182, kg, 02/01/21 13:57:00 CDT, Weight Miralax No Notes: Memoria 5-25 Dissolve l 16:48: in 8 oz of [place] 00 water or juice. (Same as: Miralax) Miralax No Notes: Memoria 5-25 Dissolve l 16:48: in 8 oz of Vaibhav 00 water or juice. (Same as: Miralax) NS + KCL No Notes: Memoria 20mEq/L 5-24 PREMIX IV l 1000ml 17:04: - Do Not [place] (Premix) 00 Alter 1,000 mL WASTE: F/P - Sink; E - Municipal Trash Bin NS + KCL No Notes: Memoria 20mEq/L 5-24 PREMIX IV l 1000ml 17:04: - Do Not Vaibhav (Premix) 00 Alter 1,000 mL WASTE: F/P - Sink; E - Municipal Trash Bin Morphine No 2 mg, 1 Memori a 5-24 mL, Route: l 17:03: IV, Drug [place] 00 form: SOLN, Q4H, Dosing Weight 118.182, kg, PRN Pain Score 7-10, Start date: 02/02/21 12:03:00 CDT, Duration: 30 day, Stop date: 03/04/21 12:02:00 CDT, 0 Acetaminoph No Notes: Keagan dinah en 325 MG / 5-24 (Same as: l Hydrocodone 17:03: Fence Maru nn Bitartrate 00 325/5) Do 5 MG Oral not exceed Tablet 4gm/day of [Fence acetaminop 5/325] hen. Morphine No 2 mg, 1 Memori a 5-24 mL, Route: l 17:03: IV, Drug [place] form: SOLN, Q4H, Dosing Weight 118.182, kg, PRN Pain Score 7-10, Start date: 02/02/21 12:03:00 CDT, Duration: 30 day, Stop date: 03/04/21 12:02:00 CDT, 0 Acetaminoph No Notes: Keagan dinah en 325 MG / 5-24 (Same as: l Hydrocodone 17:03: Fence Maru nn Bitartrate 00 325/5) Do 5 MG Oral not exceed Tablet 4gm/day of [Fence acetaminop 5/325] hen. Acetaminoph No Notes: Do M emoria en 300 MG / 5-24 not exceed l Codeine 13:16: 4gm/day of Herm don Phosphate 00 acetaminop 30 MG Oral hen. (Same Tablet as: [Tylenol Tylenol with with Codeine #3] Codeine # 3) Acetaminoph No Notes: Do M emoria en 300 MG / 5-24 not exceed l Codeine 13:16: 4gm/day of Herm don Phosphate 00 acetaminop 30 MG Oral hen. (Same Tablet as: [Tylenol Tylenol with with Codeine #3] Codeine # 3) sugammadex No Route: IV, M emoria (ANES) 5-24 Drug form: l 12:41: Vaibhav BERRIOS ONCE, Stop date: 02/02/21 7:41:00 CDT sugammadex 0 No Route: IV, M emoria (ANES) 5-24 Drug form: l 12:41: Vaibhav BERRIOS ONCE, Stop date: 02/02/21 7:41:00 CDT midazolam 0 No Route: IV, Me moria (ANES) 5-24 Drug form: l 12:34: Vaibhav BERRIOS ONCE, Stop date: 02/02/21 7:34:00 CDT fentaNYL 0 No Route: IV, Mem oria (ANES) 5-24 Drug form: l 12:34: INJ, ONCE, Stop date: 02/02/21 7:34:00 CDT dexamethaso No Route: IV, Memoria ne (ANES) 5-24 Drug form: l 12:34: INJ, ONCE, Stop date: 02/02/21 7:34:00 CDT ketOROLAC 0 No IV, ONCE Keagan dinah (ANES) 5-24 l 12:34: midazolam 0 No Route: IV, Me moria (ANES) 5-24 Drug form: l 12:34: Vaibhav BERRIOS ONCE, Stop date: 02/02/21 7:34:00 CDT fentaNYL 0 No Route: IV, Mem oria (ANES) 5-24 Drug form: l 12:34: INJ, ONCE, Stop date: 02/02/21 7:34:00 CDT dexamethaso 0 No Route: IV, Memoria ne (ANES) 5-24 Drug form: l 12:34: INJ, ONCE, Stop date: 02/02/21 7:34:00 CDT ketOROLAC 2020-0 No IV, ONCE Keagan dinah (ANES) 5-24 l 12:34: ondansetron 2021-0 No Route: IV, Memoria (ANES) 5-24 Drug form: l 12:29: INJ, ONCE, Stop date: 02/02/21 7:29:00 CDT ondansetron 2020-0 No Route: IV, Memoria (ANES) 5-24 Drug form: l 12:29: INJ, ONCE, Stop date: 02/02/21 7:29:00 CDT lidocaine 2020-0 No Route: IV, Me moria (ANES) 5-24 Drug form: l 12:24: INJ, ONCE, Stop date: 02/02/21 7:24:00 CDT propofol 2020-0 No Route: IV, Mem oria (ANES) 5-24 Drug form: l 12:24: INJ, ONCE, Stop date: 02/02/21 7:24:00 CDT rocuronium 2020-0 No Route: IV, M emoria (ANES) 5-24 Drug form: l 12:24: INJ, ONCE, Stop date: 02/02/21 7:24:00 CDT lidocaine 2020-0 No Route: IV, Me moria (ANES) 5-24 Drug form: l 12:24: INJ, ONCE, Stop date: 02/02/21 7:24:00 CDT propofol 2020-0 No Route: IV, Mem oria (ANES) 5-24 Drug form: l 12:24: INJ, ONCE, Stop date: 02/02/21 7:24:00 CDT rocuronium 2020-0 No Route: IV, M emoria (ANES) 5-24 Drug form: l 12:24: INJ, ONCE, Stop date: 02/02/21 7:24:00 CDT Lactated 2020-0 No Route: IV, Mem oria Ringers 5-24 Total l Injection 11:39: Volume: Maru nn IV (ANES) 00 1,000, 1000 mL Start date: 02/02/21 6:39:00 CDT, Stop date: 02/02/21 7:39:00 CDT Lactated 2020-0 No Route: IV, Mem oria Ringers 5-24 Total l Injection 11:39: Volume: Maru nn IV (ANES) 00 1,000, 1000 mL Start date: 02/02/21 6:39:00 CDT, Stop date: 02/02/21 7:39:00 CDT Morphine 2020-0 No 2 mg, 1 Memori a 5-24 mL, Route: l 07:32: IVP, Drug form: SOLN, ONCE, Dosing Weight 118.182, kg, Start date: 02/02/21 2:32:00 CDT, Stop date: 02/02/21 2:32:00 CDT, 0 Morphine 2020-0 No 2 mg, 1 Memori a 5-24 mL, Route: l 07:32: IVP, Drug form: SOLN, ONCE, Dosing Weight 118.182, kg, Start date: 02/02/21 2:32:00 CDT, Stop date: 02/02/21 2:32:00 CDT, 0 Zosyn 2020- No Notes: Memoria 5-24 (Same as: l 07:00: Zosyn) Dosing based on Piperacill in component MEDICATION WASTE Product Size: 3375 mg Product Wasted: ___ mg Zosyn 2020- No Notes: Memoria 5-24 (Same as: l 07:00: Zosyn) Dosing based on Piperacill in component MEDICATION WASTE Product Size: 3375 mg Product Wasted: ___ mg Dilaudid No Notes: Memoria 5-24 Same as: l 00:32: Dilaudid Vaibhav 00 Dilaudid 2020-0 No Notes: Memoria 5-24 Same as: l 00:32: Dilaudid Vaibhav 00 Sodium 2020-0 No 1,000 mL, Memori a Chloride 5-24 Rate: 100 l 0.9% IV 00:29: ml/hr, Vaibhav 1,000 mL 00 Infuse over: 10 hr, Route: IV, Dosing Weight 118.182 kg, Total Volume: 1,000, Start date: 02/01/21 19:29:00 CDT, Duration: 1 doses or times, Stop date: 02/02/21 5:28:00 CDT, 2.4, m2, 0 Sodium 2020-0 No 1,000 mL, Memori a Chloride 5-24 Rate: 100 l 0.9% IV 00:29: ml/hr, [place] 1,000 mL 00 Infuse over: 10 hr, Route: IV, Dosing Weight 118.182 kg, Total Volume: 1,000, Start date: 02/01/21 19:29:00 CDT, Duration: 1 doses or times, Stop date: 02/02/21 5:28:00 CDT, 2.4, m2, 0 Morphine 2020-0 No 2 mg, 1 Memori a 5-24 mL, Route: l 00:27: IV, Drug form: SOLN, Q6H, Dosing Weight 118.182, kg, PRN Pain Score 7-10, Start date: 02/01/21 19:27:00 CDT, Duration: 30 day, Stop date: 03/03/21 19:26:00 CDT, 0 Morphine 2020-0 No 2 mg, 1 Memori a 5-24 mL, Route: l 00:27: IV, Drug Vaibhav 00 form: SOLN, Q6H, Dosing Weight 118.182, kg, PRN Pain Score 7-10, Start date: 02/01/21 19:27:00 CDT, Duration: 30 day, Stop date: 03/03/21 19:26:00 CDT, 0 Zofran No Notes: Memoria 5-24 (Same as: l 00:26: Zofran) MEDICATION WASTE Product Size: 4 mg Product Wasted: ___ mg Tylenol No Notes: Do Memor ia 5-24 not exceed l 00:26: 4 gm/day. [place] (Same as: Tylenol) Tessalon No Notes: Memoria Perles 5-24 (Same As: l 00:26: Tessalon Perles) "Do Not Crush" Simethicone No Notes: Keagan dinah 5-24 (Same as: l 00:26: Mylicon) [place] 00 sennosides, No Notes: Keagan dinah MCFP 8.6 MG 5-24 (Same as: l Oral Tablet 00:26: Senokot) Docusate No Notes: Memoria Sodium 50 5-24 (Same as: l MG Oral 00:26: Colace) [place] Capsule 00 [Colace] Morphine No 1 mg, Memoria 5-24 Route: IV, l 00:26: ONCE, Dosing Weight 118.182, kg, Priority: STAT, Start date: 02/01/21 19:26:00 CDT, Stop date: 02/01/21 19:26:00 CDT Zofran No Notes: Memoria 5-24 (Same as: l 00:26: Zofran) MEDICATION WASTE Product Size: 4 mg Product Wasted: ___ mg Tylenol No Notes: Do Memor ia 5-24 not exceed l 00:26: 4 gm/day. (Same as: Tylenol) Tessalon No Notes: Memoria Perles 5-24 (Same As: l 00:26: Tessalon Perles) "Do Not Crush" Simethicone No Notes: Keagan dinah 5-24 (Same as: l 00:26: Mylicon) sennosides, No Notes: Keagan dinah MCFP 8.6 MG 5-24 (Same as: l Oral Tablet 00:26: Senokot) [facility] Docusate No Notes: Memoria Sodium 50 5-24 (Same as: l MG Oral 00:26: Colace) Vaibhav Capsule 00 [Colace] Morphine No 1 mg, Memoria 5-24 Route: IV, l 00:26: ONCE, Dosing Weight 118.182, kg, Priority: STAT, Start date: 02/01/21 19:26:00 CDT, Stop date: 02/01/21 19:26:00 CDT Sodium No 1,000 mL, Memori a Chloride 5-24 Rate: 75 l 0.9% IV 00:25: ml/hr, Vaibhav 1000 mL 00 Infuse over: 13.3 hr, Route: IV, Dosing Weight 118.182 kg, Total Volume: 1,000, Priority: STAT, Start date: 02/01/21 19:25:00 CDT, Duration: 1 doses or times, Stop date: 02/02/21 8:42:00 CDT, 2.4, m2 Sodium 2020-0 No 1,000 mL, Memori a Chloride 5-24 Rate: 75 l 0.9% IV 00:25: ml/hr, [place] 1000 mL 00 Infuse over: 13.3 hr, Route: IV, Dosing Weight 118.182 kg, Total Volume: 1,000, Priority: STAT, Start date: 02/01/21 19:25:00 CDT, Duration: 1 doses or times, Stop date: 02/02/21 8:42:00 CDT, 2.4, m2 Dilaudid No Notes: Memoria 5-23 Same as: l 23:59: Dilaudid Dilaudid No Notes: Memoria 5-23 Same as: l 23:59: Dilaudid Morphine 2020-0 No 4 mg, Memoria 5-23 Route: l 21:52: IVP, ONCE, Dosing Weight 118.182, kg, Priority: STAT, Start date: 02/01/21 16:52:00 CDT, Stop date: 02/01/21 16:52:00 CDT Morphine 2020-0 No 4 mg, Memoria 5-23 Route: l 21:52: IVP, ONCE, Vaibhav 00 Dosing Weight 118.182, kg, Priority: STAT, Start date: 02/01/21 16:52:00 CDT, Stop date: 02/01/21 16:52:00 CDT Zosyn 2020-0 No Notes: Memoria 5-23 (Same as: l 21:38: Zosyn) Dosing based on Piperacill in component MEDICATION WASTE Product Size: 3375 mg Product Wasted: ___ mg Zosyn No Notes: Memoria 5-23 (Same as: l 21:38: Zosyn) Dosing based on Piperacill in component MEDICATION WASTE Product Size: 3375 mg Product Wasted: ___ mg Acetaminoph No Notes: Keagan dinah en 325 MG / 5-23 (Same as: l Hydrocodone 19:02: Fence Maru nn Bitartrate 00 325/5) Do 5 MG Oral not exceed Tablet 4gm/day of acetaminop hen. Sodium No 1,000 mL, Memori a Chloride 5-23 1000 l 0.9% 19:02: ml/hr, [place] (Bolus) IV 00 Infuse Over: 1 hr, Route: IV, 1,000, Drug form: INJ, ONCE, Priority: STAT, Dosing Weight 118.182 kg, Start date: 02/01/21 14:02:00 CDT, Stop date: 02/01/21 14:02:00 CDT, 0 Acetaminoph No Notes: Keagan dinah en 325 MG / 5-23 (Same as: l Hydrocodone 19:02: Fence Maru nn Bitartrate 00 325/5) Do 5 MG Oral not exceed Tablet 4gm/day of acetaminop hen. Sodium No 1,000 mL, Memori a Chloride 5-23 1000 l 0.9% 19:02: ml/hr, [place] (Bolus) IV 00 Infuse Over: 1 hr, Route: IV, 1,000, Drug form: INJ, ONCE, Priority: STAT, Dosing Weight 118.182 kg, Start date: 02/01/21 14:02:00 CDT, Stop date: 02/01/21 14:02:00 CDT, 0 No known No Univers medications [facility] Vital Signs Vital Name Observation Time Observation Value Comments Source HEIGHT 2021-01-28 15:18:00 167.6 cm WEIGHT 2021-01-28 15:18:00 134.265 kg Body temperature 2020-04-23 06:37:00 35.78 Zully [facility] Respiratory rate 2020-04-23 06:37:00 18 /min [facility] Body height 2020-04-23 06:37:00 160 cm [facility] Body weight 2020-04-23 06:37:00 117.935 kg [facility] BMI 2020-04-23 06:37:00 46.06 kg/m2 [facility] Oxygen saturation in 2020-04-23 06:37:00 96 /min [facility] Arterial blood by [facility] Pulse oximetry Branch Systolic blood 2020-04-23 06:37:00 149 mm[Hg] Univer sity of pressure [facility] Diastolic blood 2020-04-23 06:37:00 97 mm[Hg] Unive rsity of pressure [facility] Heart rate 2020-04-23 06:37:00 92 /min [facility]i ty of [facility] Body temperature 2020-04-23 06:37:00 35.78 Zully Univ ers[facility] Respiratory rate 2020-04-23 06:37:00 18 /min Univ [facility] Body height 2020-04-23 06:37:00 160 cm [facility] Body weight 2020-04-23 06:37:00 117.935 kg [facility] [place] BMI 2020-04-23 06:37:00 46.06 kg/m2 [facility] of [facility] Oxygen saturation in 2020-04-23 06:37:00 96 /min [facility] Arterial blood by [facility] Pulse oximetry Branch Systolic blood 2020-04-23 06:37:00 149 mm[Hg] Univer sity of pressure [facility] Diastolic blood 2020-04-23 06:37:00 97 mm[Hg] Unive rsity of pressure [facility] Heart rate 2020-04-23 06:37:00 92 /min [facility]i ty of [facility] Systolic (mm Hg) 2021-03-12 14:57:00 Keagan rial Vaibhav Diastolic (mm Hg) 2021-03-12 14:57:00 Mem orial [place] Heart Rate 2021-03-12 14:57:00 [facility] [place] Height 2021-03-12 14:57:00 170.18 cm [facility] Vaibhav Weight 2021-03-12 14:57:00 [facility] [place] BMI Calculated 2021-03-12 14:57:00 Memori al Vaibhav Systolic (mm Hg) 2021-02-12 17:16:00 Keagan rial Vaibhav Diastolic (mm Hg) 2021-02-12 17:16:00 Mem orial [place] Heart Rate 2021-02-12 17:16:00 [facility] Vaibhav Height 2021-02-12 17:16:00 167.64 cm [facility] Vaibhav Weight 2021-02-12 17:16:00 [facility] [place] BMI Calculated 2021-02-12 17:16:00 Memori al [place] Temperature Oral (F) 2021-02-03 21:00:00 98.2 F [facility] Vaibhav Heart Rate 2021-02-03 21:00:00 [facility] [place] Respitory Rate 2021-02-03 21:00:00 Memori al Vaibhav Systolic (mm Hg) 2021-02-03 21:00:00 Keagan rial [place] Diastolic (mm Hg) 2021-02-03 21:00:00 Mem orial Vaibhav Temperature Oral (F) 2021-02-03 17:00:00 98.3 F [facility] Vaibhav Heart Rate 2021-02-03 17:00:00 [facility] [place] Respitory Rate 2021-02-03 17:00:00 Memori al Vaibhav Systolic (mm Hg) 2021-02-03 17:00:00 Keagan rial Vaibhav Diastolic (mm Hg) 2021-02-03 17:00:00 Mem orial [place] Temperature Oral (F) 2021-02-03 13:00:00 97.9 F [facility] [place] Systolic (mm Hg) 2021-02-03 13:00:00 Keagan rial Vaibhav Diastolic (mm Hg) 2021-02-03 13:00:00 Mem orial Vaibhav Heart Rate 2021-02-03 13:00:00 [facility] [place] Respitory Rate 2021-02-03 13:00:00 Memori al Vaibhav Temperature Oral (F) 2021-02-02 08:01:00 102.3 F [facility] [place] Heart Rate 2021-02-02 08:01:00 [facility] [place] Systolic (mm Hg) 2021-02-02 08:01:00 Keagan rial [place] Diastolic (mm Hg) 2021-02-02 08:01:00 Mem orial Vaibhav Temperature Oral (F) 2021-02-02 05:00:00 99.6 F [facility] [place] Heart Rate 2021-02-02 05:00:00 [facility] Vaibhav Respitory Rate 2021-02-02 05:00:00 Memori al Vaibhav Systolic (mm Hg) 2021-02-02 05:00:00 Keagan rial Vaibhav Diastolic (mm Hg) 2021-02-02 05:00:00 Mem orial Vaibhav Temperature Oral (F) 2021-02-02 02:39:00 100.4 F [facility] Vaibhav Heart Rate 2021-02-02 02:39:00 [facility] [place] Respitory Rate 2021-02-02 02:39:00 Memori al [place] Systolic (mm Hg) 2021-02-02 02:39:00 Keagan rial Vaibhav Diastolic (mm Hg) 2021-02-02 02:39:00 Mem orial Viabhav Respitory Rate 2021-02-02 01:28:00 Anny al Vaibhav Height 2021-02-01 18:57:00 170.18 cm [facility] BMI Calculated 2021-02-01 18:57:00 Memarthur al Vaibhav Weight 2021-02-01 18:57:00 [facility] Procedures Procedure Date / Time Performed Performing Clinician [facility] e Incision and drainage 2021-02-02 05:00:00 Anny Krause of perirectal abscess NOTICE OF PRIVACY 2020-04-23 06:29:31 Doctor Unassigned, No Univ [facility] PRACTICES Name Medical Branch CONSENT/REFUSAL FOR 2020-04-23 06:29:17 Doctor Unassigned, No Un [facility] DIAGNOSIS AND Name Medical Branch TREATMENT Plan of Care Planned Activity Planned Date Details Comments Source Future Scheduled 2023-05-[address] [facility] Test 00:00:00 (Season Ended) [code = Medic al Center INFLUENZA VACCINE (Season Ended)] Future Scheduled 2023-05-[address] [facility] Test 00:00:00 (Season Ended) [code = Medic al Center INFLUENZA VACCINE (Season Ended)] Future Scheduled 2022-09-[address] [facility] Test 00:00:00 (12+) [code = Medical Center DEPRESSION SCREENING (12+)] Future Scheduled 2022-09-[address] [facility] Test 00:00:00 (12+) [code = Medical Center DEPRESSION SCREENING (12+)] Future Scheduled 2022-01-[address] [facility] Test 00:00:00 Counseling and Medical Cente r Screening (12+) [code = Tobacco Cessation Counseling and Screening (12+)] Future Scheduled 2022-01-[address] [facility] Test 00:00:00 Counseling and Medical Cente r Screening (12+) [code = Tobacco Cessation Counseling and Screening (12+)] Future Scheduled [address] [facility] 00:[facility]:00 malignant neoplasm of Medica l Center cervix (procedure) [code = 563730485] Future Scheduled [address] [facility] 00:[facility]00 [facility] [code = 616591509] Future Scheduled [address] [facility] 00:[facility]:00 (procedure) [code = [facility] [id number]] Future Scheduled [address] [facility] 00:00:00 (procedure) [code = [facility] [id number]] Future Scheduled 2008 DTAP/TDAP/TD [facility]ACCINES [facility]00 (1 - Tdap) [code = Medical C enter DTAP/TDAP/TD VACCINES (1 - Tdap)] Future Scheduled 2008 DTAP/TDAP/TD VACCINES [facility] 00:00:00 (1 - Tdap) [code = Medical C enter DTAP/TDAP/TD VACCINES (1 - Tdap)] Future Scheduled 2007 HEPATITIS C [facility]CRE[facility]ING [facility] 00:00:00 [code = HEPATITIS C Medical Center SCREENING] Future Scheduled 2007 HEPATITIS C [facility] 00:00:00 [code = HEPATITIS C Medical Center SCREENING] Future Scheduled [address] [facility] Test 00:00:00 0-64 YRS (1 - PCV) Medical C enter [code = PNEUMOCOCCAL VACCINE 0-64 YRS (1 - PCV)] Future Scheduled [address] [facility] Test 00:00:00 0-64 YRS (1 - PCV) Medical C enter [code = PNEUMOCOCCAL VACCINE 0-64 YRS (1 - PCV)] Future Scheduled 1990-02-04 COVID-19 VACCINE (#1) [facility] 00:[facility]:00 [code = COVID-[address] VACCINE (#1)] Future Scheduled 1990-02-04 COVID-19 VACCINE (#1) [facility] 00:[facility]:00 [code = COVID-[address] VACCINE (#1)] Encounters Start End Encounter Admission Attending Care Care Encounter Source Date/Time Date/Time Type Type Clinicians Facility Department ID 2021-06-18 2021-06-18 Ambulatory nullFlavo [facility] [id number] [facility] 15:15:00 15:15:00 Pre-Reg r Specialty 03 l [place] [facility] 2021-06-18 2021-06-18 Ambulatory nullFlavo [facility] 37 [id number] [facility] 15:15:00 15:15:00 Pre-Reg r Specialty 03 l [place] [facility] 2021-06-18 2021-06-18 Outpatient MHIE MHIE [id number] [facility] 10:15:00 10:15:00 03 chelsie Esposito 2021-06-18 2021-06-18 Outpatient Melodyani, MG MG [id number] 10:15:00 [facility]15[facility]13 [facility] nullFlavo [facility] 37 [id number] [facility] 14:45:00 04:59:59 r Specialty 02 l [place] 2021-03-12 2021-03-13 Outpatient nullFlavo [facility] 37 [id number] [facility] 14:45:00 04:59:59 r Specialty 02 l [facility] 2021-03-12 2021-03-12 Outpatient Vinicio, MG MG [id number] 09:45:00 23:59:[facility]12 Outpatient MHIE MHIE [id number] [facility] 09:45:00 09:45:00 02 chelsie Esposito 2021-02-12 2021-02-13 Outpatient nullFlavo [facility] 37 [id number] [facility] 17:30:00 04:59:59 r Specialty 00 l [facility] 2021-02-12 2021-02-13 Outpatient nullFlavo [facility] 37 [id number] [facility] 17:30:00 04:59:59 r Specialty 00 l [facility] 2021-02-12 2021-02-12 Outpatient Melodyani, MHMG MG [id number] 12:30:00 23:59:59 Mohummed 00 Radwan 2021-02-12 2021-02-12 Outpatient MHIE MHIE [id number] Memoria 12:30:00 12:30:00 00 [facility] 2021-02-01 2021-02-04 Inpatient Formerly [facility] [id number] Memoria 18:52:39 00:30:00 r [place] 00 l [facility] 2021-02-01 2021-02-04 Inpatient Formerly [facility] [id number] Memoria 18:52:39 00:30:00 r Vaibhav 00 l [facility] 2021-02-01 2021-02-03 Inpatient E AJIBADE, MHBL MED 7500 MHBL 19:13:00 19:30:00 FREDERICK 2021-02-01 2021-02-03 Outpatient Ajibade, MHPL MHPL [id number] 13:52:39 19:30:00 Frederick 00 Akinwale 2021-02-02 2021-02-02 Outpatient MHIE MHIE [id number] Memoria 07:00:00 07:00:00 01 [facility] 2021-02-02 2021-02-02 Outpatient MHIE MHIE [id number] Memoria 07:00:00 07:00:00 01 [facility] 2021-02-01 2021-02-01 Outpatient Sadhu, MHPL MHPL [id number] 13:52:39 13:52:39 Dany 00 2021-01-28 2021-01-28 Emergency ER [facility] Emergency [id number] [facility] 15:07:00 15:07:00 2020-04-23 2020-04-23 Emergency [facility] [id number] 01:53:00 02:06:00 Karen Lakhani [id number] [place] [id number] [place] [id number] 2020-04-23 2020-04-23 Emergency [facility] [id number] [facility] 01:53:00 02:06:00 Karen Lakhani [id number] i ty of [place] 4.2.7.2.686 [facility] [id number] [facility] [address] [place] 2020-04-23 2020-04-23 Emergency X [facility] ERT [id number] 01:28:00 01:28:00 ity of [facility] Results Test Description Test Time Test Comments Results Result Comments Source HEMATOLOGY 2021-02-03 09:28:00 Test Item Value Reference Range Interpretation Comme nts Hct (test code = Hct) 33.5 36.0-48.0 [facility]CUJF9219[facility]-07 09:28:00 Test Item Value Reference Range Interpretation Comments MCV (test code = MCV) 89.6 80.0-98.0 [facility]ZbpllueAWHFBEKWEL0441-34-18 09:28:00 Test Item Value Reference Range Interpretation Comments MCH (test code = MCH) 29.4 pg 27.0-31.0 [facility] HeightsJjgezbkHNGTQMJVVS4595-47-49 09:28:00 Test Item Value Reference Range Interpretation Comments MCHC (test code = MCHC) 32.8 32.0-36.0 [facility] HeightsAkijbgqLNLFZLFCXV0778-68-90 09:28:00 Test Item Value Reference Range Interpretation Comments RDW (test code = RDW) 13.7 11.5-14.5 [facility] HeightsVlbcmbeFJKOXSKOEX9252-18-91 09:28:00 Test Item Value Reference Range Interpretation Comments Platelet (test code = Platelet) 403 133-450 [facility] HeightsVdnouizGWXSXXXJOD3231-46-20 09:28:00 Test Item Value Reference Range Interpretation Comments MPV (test code = MPV) 7.3 7.4-10.4 [facility]2021-05-25 09:28:00 Test Item Value Reference Range Interpretation Comments Magnesium Lvl (test code = Magnesium 2.5 1.8-2.4 Lvl) [facility]2021-05-25 09:28:00 Test Item Value Reference Range Interpretation Comments Glucose Lvl (test code = Glucose Lvl) 114 70-99 [place] 233511-05-25 09:28:00 Test Item Value Reference Range Interpretation Comments BUN (test code = BUN) 7 7-22 [place] 233511-05-25 09:28:00 Test Item Value Reference Range Interpretation Comments Creatinine Lvl (test code = Creatinine 0.68 0.50-1.40 Lvl) [place] 233511-05-25 09:28:00 Test Item Value Reference Range Interpretation Comments Sodium Lvl (test code = Sodium Lvl) 140 135-145 [place] [address]-05-25 09:28:00 Test Item Value Reference Range Interpretation Comments Potassium Lvl (test code = Potassium 3.8 3.5-5.1 Lvl) [place] 233511-05-25 09:28:00 Test Item Value Reference Range Interpretation Comments Chloride Lvl (test code = Chloride Lvl) 109 95-109 [place] [address]-05-25 09:28:00 Test Item Value Reference Range Interpretation Comments CO2 (test code = CO2) 28 24-32 [place] [address]-05-25 09:28:00 Test Item Value Reference Range Interpretation Comments Calcium Lvl (test code = Calcium Lvl) 8.3 8.5-10.5 [place] [address]-05-25 09:28:00 Test Item Value Reference Range Interpretation Comments AGAP (test code = AGAP) 6.8 10.0-20.0 [address]05-25 09:28:00 Test Item Value Reference Range Interpretation Comments eGFR (test code = eGFR) 117 [place] [address]-05-25 09:28:00 Test Item Value Reference Range Interpretation Comments Segs (test code = Segs) 85.8 45.0-75.0 [place] [address]-05-25 09:28:00 Test Item Value Reference Range Interpretation Comments Lymphocytes (test code = Lymphocytes) 9.0 20.0-40.0 [place] [address]-05-25 09:28:00 Test Item Value Reference Range Interpretation Comments Monocytes (test code = Monocytes) 4.1 2.0-12.0 [place] [address]-05-25 09:28:00 Test Item Value Reference Range Interpretation Comments Eosinophils (test code = 0.8 See_Comment [A utomated message] The Eosinophils) system which ge nerated this result tra nsmitted reference range : <=4.0. The reference r cristiano was not used to int erpret this result as normal/abnormal . [place] [address]-05-25 09:28:00 Test Item Value Reference Range Interpretation Comments Basophils (test code = 0.3 See_Comment [Aut omated message] The Basophils) system which ge nerated this result tra nsmitted reference range : <=1.0. The reference r cristiano was not used to int erpret this result as normal/abnormal . [place] [address]-05-25 09:28:00 Test Item Value Reference Range Interpretation Comments Neutrophils # (test code = Neutrophils 18.6 1.5-8.1 #) [place] [address]-05-25 09:28:00 Test Item Value Reference Range Interpretation Comments Lymphocytes # (test code = Lymphocytes 2.0 1.0-5.5 #) [place] [address]-05-25 09:28:00 Test Item Value Reference Range Interpretation Comments Monocytes # (test code 0.9 See_Comment [Aut omated message] The = Monocytes #) system which generated this result tra nsmitted reference range : <=0.8. The reference r cristiano was not used to int erpret this result as normal/abnormal . [place] [address]-05-25 09:28:00 Test Item Value Reference Range Interpretation Comments Eosinophils # (test code 0.2 See_Comment [A utomated message] The = Eosinophils #) system whic h generated this result tra nsmitted reference range : <=0.5. The reference r cristiano was not used to int erpret this result as normal/abnormal . [place] [address]-05-25 09:28:00 Test Item Value Reference Range Interpretation Comments Basophils # (test code 0.1 See_Comment [Aut omated message] The = Basophils #) system which generated this result tra nsmitted reference range : <=0.2. The reference r cristiano was not used to int erpret this result as normal/abnormal . [place] [address]-05-25 09:28:00 Test Item Value Reference Range Interpretation Comments WBC (test code = WBC) 21.7 3.7-10.4 [place] 938761-05-25 09:28:00 Test Item Value Reference Range Interpretation Comments RBC (test code = RBC) 3.74 4.20-5.40 [place] [address]-05-25 09:28:00 Test Item Value Reference Range Interpretation Comments Hgb (test code = Hgb) 11.0 12.0-16.0 [place] [address]-05-25 09:28:00 Test Item Value Reference Range Interpretation Comments Hct (test code = Hct) 33.5 36.0-48.0 [place] [address]-05-25 09:28:00 Test Item Value Reference Range Interpretation Comments MCV (test code = MCV) 89.6 80.0-98.0 [place] [address]-05-25 09:28:00 Test Item Value Reference Range Interpretation Comments MCH (test code = MCH) 29.4 pg 27.0-31.0 [place] [address]-05-25 09:28:00 Test Item Value Reference Range Interpretation Comments MCHC (test code = MCHC) 32.8 32.0-36.0 [place] [address]-05-25 09:28:00 Test Item Value Reference Range Interpretation Comments RDW (test code = RDW) 13.7 11.5-14.5 [place] [address]-05-25 09:28:00 Test Item Value Reference Range Interpretation Comments Platelet (test code = Platelet) 403 133-450 [place] [address]-05-25 09:28:00 Test Item Value Reference Range Interpretation Comments MPV (test code = MPV) 7.3 7.4-10.4 [place] 233511-05-25 09:28:00 Test Item Value Reference Range Interpretation Comments Magnesium Lvl (test code = Magnesium 2.5 1.8-2.4 Lvl) [place] 233511-05-25 09:28:00 Test Item Value Reference Range Interpretation Comments Glucose Lvl (test code = Glucose Lvl) 114 70-99 [place] [address]-05-25 09:28:00 Test Item Value Reference Range Interpretation Comments BUN (test code = BUN) 7 7-22 [place] 233511-05-25 09:28:00 Test Item Value Reference Range Interpretation Comments Creatinine Lvl (test code = Creatinine 0.68 0.50-1.40 Lvl) [place] 233511-05-25 09:28:00 Test Item Value Reference Range Interpretation Comments Sodium Lvl (test code = Sodium Lvl) 140 135-145 [place] 233511-05-25 09:28:00 Test Item Value Reference Range Interpretation Comments Potassium Lvl (test code = Potassium 3.8 3.5-5.1 Lvl) [place] [address]-05-25 09:28:00 Test Item Value Reference Range Interpretation Comments Chloride Lvl (test code = Chloride Lvl) 109 95-109 [place] 233511-05-25 09:28:00 Test Item Value Reference Range Interpretation Comments CO2 (test code = CO2) 28 24-32 [place] [address]-05-25 09:28:00 Test Item Value Reference Range Interpretation Comments Calcium Lvl (test code = Calcium Lvl) 8.3 8.5-10.5 [place] 233511-05-25 09:28:00 Test Item Value Reference Range Interpretation Comments AGAP (test code = AGAP) 6.8 10.0-20.0 [place] [address]-05-25 09:28:00 Test Item Value Reference Range Interpretation Comments eGFR (test code = eGFR) 117 [place] [address]-05-25 09:28:00 Test Item Value Reference Range Interpretation Comments Segs (test code = Segs) 85.8 45.0-75.0 [place] [address]-05-25 09:28:00 Test Item Value Reference Range Interpretation Comments Lymphocytes (test code = Lymphocytes) 9.0 20.0-40.0 [place] [address]-05-25 09:28:00 Test Item Value Reference Range Interpretation Comments Monocytes (test code = Monocytes) 4.1 2.0-12.0 [place] [address]-05-25 09:28:00 Test Item Value Reference Range Interpretation Comments Eosinophils (test code = 0.8 See_Comment [A utomated message] The Eosinophils) system which ge nerated this result tra nsmitted reference range : <=4.0. The reference r cristiano was not used to int erpret this result as normal/abnormal . [place] [address]-05-25 09:28:00 Test Item Value Reference Range Interpretation Comments Basophils (test code = 0.3 See_Comment [Aut omated message] The Basophils) system which ge nerated this result tra nsmitted reference range : <=1.0. The reference r cristiano was not used to int erpret this result as normal/abnormal . [facility]DhjybyoHJJOAAPQNA6873-42-19 09:28:00 Test Item Value Reference Range Interpretation Comments Neutrophils # (test code = Neutrophils 18.6 1.5-8.1 #) [facility] HeightsBpkopnlGFJIYFKJFH1651-22-89 09:28:00 Test Item Value Reference Range Interpretation Comments Lymphocytes # (test code = Lymphocytes 2.0 1.0-5.5 #) [facility] HeightsArndvxpWXTRGFBUYM2214-83-67 09:28:00 Test Item Value Reference Range Interpretation Comments Monocytes # (test code 0.9 See_Comment [Aut omated message] The = Monocytes #) system which generated this result tra nsmitted reference range : <=0.8. The reference r cristiano was not used to int erpret this result as normal/abnormal . [facility] HeightsJrbelvxUPLPHJGLOJ3701-64-99 09:28:00 Test Item Value Reference Range Interpretation Comments Eosinophils # (test code 0.2 See_Comment [A utomated message] The = Eosinophils #) system whic h generated this result tra nsmitted reference range : <=0.5. The reference r cristiano was not used to int erpret this result as normal/abnormal . [facility] HeightsRiuiyicOIKYEFLQHJ4345-00-58 09:28:00 Test Item Value Reference Range Interpretation Comments Basophils # (test code 0.1 See_Comment [Aut omated message] The = Basophils #) system which generated this result tra nsmitted reference range : <=0.2. The reference r cristiano was not used to int erpret this result as normal/abnormal . [facility] HeightsRffzzteVWKUYMCMKV8693-76-62 09:28:00 Test Item Value Reference Range Interpretation Comments WBC (test code = WBC) 21.7 3.7-10.4 [facility] HeightsFvyoxnkYKSZCUZNKR2058-96-48 09:28:00 Test Item Value Reference Range Interpretation Comments RBC (test code = RBC) 3.74 4.20-5.40 [facility] HeightsIucmbciURRQTLFZFI7551-05-09 09:28:00 Test Item Value Reference Range Interpretation Comments Hgb (test code = Hgb) 11.0 12.0-16.0 [facility] AmericaCIPROFLOXACIN:SUSC:PT:ISOLATE:ORDQN:[id number] 12:38:00 Test Item Value Reference Range Interpretation Comments Gram Stain Report No WBC's Seen Many Gram (test code = Gram Negative Rods Many Gram Stain Report) Positive Cocci In Pairs [facility]C:PT:ISOLATE:ORDQN:[id number] 12:38:00 Test Item Value Reference Range Interpretation [...] call the laboratory. Alpha Streptococcus, Not Enterococcus [facility] HermannCIPROFLOXACIN:SUSC:PT:ISOLATE:ORDQN:[id number] 12:38:00 Test Item Value Reference Range Interpretation Comments Escherichia coli (test code Escherichia coli = Escherichia coli) [facility] AmericaCIPROFLOXACIN:SUSC:PT:ISOLATE:ORDQN:[id number] 12:38:00 Test Item Value Reference Range Interpretation Comments Citrobacter Citrobacter amalonaticus (test code amalonaticus = Citrobacter amalonaticus) [facility] AmericaCulture: Svzclkfxu5155-58-59 12:38:00 Test Item Value Reference Range Interpretation Comments Culture: Anaerobic Many Bacteroides (test code = Culture: fragilis Anaerobic) [facility] AmericaCIPROFLOXACIN:SUSC:PT:ISOLATE:ORDQN:[id number] 12:38:00 Test Item Value Reference Range Interpretation Comments Gram Stain Report No WBC's Seen Many Gram (test code = Gram Negative Rods Many Gram Stain Report) Positive Cocci In Pairs [facility]CIP[facility]ACIN:SUSC:PT:ISOLATE:ORDQN:[id number] 12:38:00 Test Item Value Reference Range Interpretation [...] call the laboratory. Alpha Streptococcus, Not Enterococcus [facility] HermannCIPROFLOXACIN:SUSC:PT:ISOLATE:ORDQN:[id number] 12:38:00 Test Item Value Reference Range Interpretation Comments Escherichia coli (test code Escherichia coli = Escherichia coli) [facility] AmericaCIPROFLOXACIN:SUSC:PT:ISOLATE:ORDQN:[id number] 12:38:00 Test Item Value Reference Range Interpretation Comments Citrobacter Citrobacter amalonaticus (test code amalonaticus = Citrobacter amalonaticus) [facility] AmericaCulture: Sxiqzxugi6556-77-37 12:38:00 Test Item Value Reference Range Interpretation Comments Culture: Anaerobic Many Bacteroides (test code = Culture: fragilis Anaerobic) [facility] [id number] 09:37:00 Test Item Value Reference Range Interpretation Comments Alk Phos (test code = Alk Phos) 91 39-136 [facility]2021-05-24 09:37:00 Test Item Value Reference Range Interpretation Comments Bili Total (test code = Bili Total) 0.4 0.2-1.3 [facility]2021-05-24 09:37:00 Test Item Value Reference Range Interpretation Comments AGAP (test code = AGAP) 12.2 10.0-20.0 [facility]2021-05-24 09:37:00 Test Item Value Reference Range Interpretation Comments B/C Ratio (test code = B/C Ratio) 7 1 6-25 [facility]2021-05-24 09:37:00 Test Item Value Reference Range Interpretation Comments Globulin (test code = Globulin) 4.4 2.7-4.2 [facility]2021-05-24 09:37:00 Test Item Value Reference Range Interpretation Comments A/G Ratio (test code = A/G Ratio) 0.6 1 0.7-1.6 [facility]2021-05-24 09:37:00 Test Item Value Reference Range Interpretation Comments eGFR (test code = eGFR) 108 [facility]2021-05-24 09:37:00 Test Item Value Reference Range Interpretation Comments Magnesium Lvl (test code = Magnesium 1.9 1.8-2.4 Lvl) [facility] HeightsBpywpmzHZQVJADTPQ9753-46-17 09:37:00 Test Item Value Reference Range Interpretation Comments WBC (test code = WBC) 27.8 3.7-10.4 [facility] HeightsVpvhxrtQDNGNTVFLA9263-65-73 09:37:00 Test Item Value Reference Range Interpretation Comments RBC (test code = RBC) 4.00 4.20-5.40 [place] 938761-05-24 09:37:00 Test Item Value Reference Range Interpretation Comments Hgb (test code = Hgb) 11.9 12.0-16.0 [place] [address]-05-24 09:37:00 Test Item Value Reference Range Interpretation Comments Hct (test code = Hct) 35.5 36.0-48.0 [place] 938761-05-24 09:37:00 Test Item Value Reference Range Interpretation Comments MCV (test code = MCV) 88.6 80.0-98.0 [place] [address]-05-24 09:37:00 Test Item Value Reference Range Interpretation Comments MCH (test code = MCH) 29.8 pg 27.0-31.0 [place] 938761-05-24 09:37:00 Test Item Value Reference Range Interpretation Comments MCHC (test code = MCHC) 33.6 32.0-36.0 [facility] HeightsMabqssfXFLHXMBPKY8197-24-77 09:37:00 Test Item Value Reference Range Interpretation Comments RDW (test code = RDW) 13.3 11.5-14.5 [place] [address]-05-24 09:37:00 Test Item Value Reference Range Interpretation Comments Platelet (test code = Platelet) 440 133-450 [facility] HeightsPbvmwllWUEGRZWEEK4378-59-73 09:37:00 Test Item Value Reference Range Interpretation Comments MPV (test code = MPV) 7.8 7.4-10.4 [place] [address]-05-24 09:37:00 Test Item Value Reference Range Interpretation Comments Segs (test code = Segs) 88.1 45.0-75.0 [place] [address]-05-24 09:37:00 Test Item Value Reference Range Interpretation Comments Lymphocytes (test code = Lymphocytes) 4.7 20.0-40.0 [place] 938761-05-24 09:37:00 Test Item Value Reference Range Interpretation Comments Monocytes (test code = Monocytes) 6.8 2.0-12.0 [place] 938761-05-24 09:37:00 Test Item Value Reference Range Interpretation Comments Eosinophils (test code = 0.1 See_Comment [A utomated message] The Eosinophils) system which ge nerated this result tra nsmitted reference range : <=4.0. The reference r cristiano was not used to int erpret this result as normal/abnormal . [facility] HeightsPxqimacILKUTGZZEI9493-05-16 09:37:00 Test Item Value Reference Range Interpretation Comments Basophils (test code = 0.3 See_Comment [Aut omated message] The Basophils) system which ge nerated this result tra nsmitted reference range : <=1.0. The reference r cristiano was not used to int erpret this result as normal/abnormal . [facility] HeightsGeuscwjLFADLLSNQK9770-69-09 09:37:00 Test Item Value Reference Range Interpretation Comments Neutrophils # (test code = Neutrophils 24.5 1.5-8.1 #) [facility] HeightsItnucjpRGEKSKTYLE0993-34-66 09:37:00 Test Item Value Reference Range Interpretation Comments Lymphocytes # (test code = Lymphocytes 1.3 1.0-5.5 #) [facility] HeightsTsdqdkyCMDIORHKJZ1411-91-24 09:37:00 Test Item Value Reference Range Interpretation Comments Monocytes # (test code 1.9 See_Comment [Aut omated message] The = Monocytes #) system which generated this result tra nsmitted reference range : <=0.8. The reference r cristiano was not used to int erpret this result as normal/abnormal . [facility] HeightsNwjwkrpRHEOLCSZWD9665-78-54 09:37:00 Test Item Value Reference Range Interpretation Comments Basophils # (test code 0.1 See_Comment [Aut omated message] The = Basophils #) system which generated this result tra nsmitted reference range : <=0.2. The reference r cristiano was not used to int erpret this result as normal/abnormal . [facility] KGYTLYYNX2220-22-01 09:37:00 Test Item Value Reference Range Interpretation Comments Hgb A1C (test code = Hgb A1C) 5.6 [facility] [id number] 09:37:00 Test Item Value Reference Range Interpretation Comments Glucose Lvl (test code = Glucose Lvl) 112 70-99 [facility]2021-05-24 09:37:00 Test Item Value Reference Range Interpretation Comments BUN (test code = BUN) 5 7-22 [place] [address]-05-24 09:37:00 Test Item Value Reference Range Interpretation Comments Creatinine Lvl (test code = Creatinine 0.74 0.50-1.40 Lvl) [address]05-24 09:37:00 Test Item Value Reference Range Interpretation Comments Sodium Lvl (test code = Sodium Lvl) 135 135-145 [place] [address]-05-24 09:37:00 Test Item Value Reference Range Interpretation Comments Potassium Lvl (test code = Potassium 3.2 3.5-5.1 Lvl) [address]05-24 09:37:00 Test Item Value Reference Range Interpretation Comments Chloride Lvl (test code = Chloride Lvl) 101 95-[address]05-24 09:37:00 Test Item Value Reference Range Interpretation Comments CO2 (test code = CO2) 25 24-32 [address]05-24 09:37:00 Test Item Value Reference Range Interpretation Comments Calcium Lvl (test code = Calcium Lvl) 8.5 8.5-10.5 [place] [address]-05-24 09:37:00 Test Item Value Reference Range Interpretation Comments Total Protein (test code = Total 6.9 6.4-8.4 Protein) [address]05-24 09:37:00 Test Item Value Reference Range Interpretation Comments Albumin Lvl (test code = Albumin Lvl) 2.5 3.5-5.0 [place] [address]-05-24 09:37:00 Test Item Value Reference Range Interpretation Comments ALT (test code = ALT) 31 See_Comment [Auto mated message] The system which ge nerated this result transmit nini reference range : <=65. The reference range was not used to interpr et this result as tonja l/abnormal. [place] [address]-05-24 09:37:00 Test Item Value Reference Range Interpretation Comments AST (test code = AST) 18 See_Comment [Auto mated message] The system which ge nerated this result transmit nini reference range : <=37. The reference range was not used to interpr et this result as tonja l/abnormal. [place] [address]-05-24 09:37:00 Test Item Value Reference Range Interpretation Comments Albumin Lvl (test code = Albumin Lvl) 2.5 3.5-5.0 [facility]2021-05-24 09:37:00 Test Item Value Reference Range Interpretation Comments ALT (test code = ALT) 31 See_Comment [Auto mated message] The system which ge nerated this result transmit nini reference range : <=65. The reference range was not used to interpr et this result as tonja l/abnormal. [place] 233511-05-24 09:37:00 Test Item Value Reference Range Interpretation Comments AST (test code = AST) 18 See_Comment [Auto mated message] The system which ge nerated this result transmit nini reference range : <=37. The reference range was not used to interpr et this result as tonja l/abnormal. [place] 233511-05-24 09:37:00 Test Item Value Reference Range Interpretation Comments Alk Phos (test code = Alk Phos) 91 39-136 [place] 233511-05-24 09:37:00 Test Item Value Reference Range Interpretation Comments Bili Total (test code = Bili Total) 0.4 0.2-1.3 [place] 233511-05-24 09:37:00 Test Item Value Reference Range Interpretation Comments AGAP (test code = AGAP) 12.2 10.0-20.0 [place] 233511-05-24 09:37:00 Test Item Value Reference Range Interpretation Comments B/C Ratio (test code = B/C Ratio) 7 1 6-25 [place] 233511-05-24 09:37:00 Test Item Value Reference Range Interpretation Comments Globulin (test code = Globulin) 4.4 2.7-4.2 [place] 233511-05-24 09:37:00 Test Item Value Reference Range Interpretation Comments A/G Ratio (test code = A/G Ratio) 0.6 1 0.7-1.6 [place] 233511-05-24 09:37:00 Test Item Value Reference Range Interpretation Comments eGFR (test code = eGFR) 108 [place] 233511-05-24 09:37:00 Test Item Value Reference Range Interpretation Comments Magnesium Lvl (test code = Magnesium 1.9 1.8-2.4 Lvl) [place] 938761-05-24 09:37:00 Test Item Value Reference Range Interpretation Comments WBC (test code = WBC) 27.8 3.7-10.4 [place] 938761-05-24 09:37:00 Test Item Value Reference Range Interpretation Comments RBC (test code = RBC) 4.00 4.20-5.40 [place] 938761-05-24 09:37:00 Test Item Value Reference Range Interpretation Comments Hgb (test code = Hgb) 11.9 12.0-16.0 [place] 938761-05-24 09:37:00 Test Item Value Reference Range Interpretation Comments Hct (test code = Hct) 35.5 36.0-48.0 [place] 938761-05-24 09:37:00 Test Item Value Reference Range Interpretation Comments MCV (test code = MCV) 88.6 80.0-98.0 [place] [address]-05-24 09:37:00 Test Item Value Reference Range Interpretation Comments MCH (test code = MCH) 29.8 pg 27.0-31.0 [facility]PhlwlgnSJYMWZJBJA6577-07-36 09:37:00 Test Item Value Reference Range Interpretation Comments MCHC (test code = MCHC) 33.6 32.0-36.0 [facility] HeightsZiyxtfxHYGOJXGABD7015-39-37 09:37:00 Test Item Value Reference Range Interpretation Comments RDW (test code = RDW) 13.3 11.5-14.5 [facility] HeightsTevcbcfYDGAMQJHIA6843-40-56 09:37:00 Test Item Value Reference Range Interpretation Comments Platelet (test code = Platelet) 440 133-450 [facility] HeightsEzbvoxiBVFFJDTZNL7683-63-88 09:37:00 Test Item Value Reference Range Interpretation Comments MPV (test code = MPV) 7.8 7.4-10.4 [place] [address]-05-24 09:37:00 Test Item Value Reference Range Interpretation Comments Segs (test code = Segs) 88.1 45.0-75.0 [place] [address]-05-24 09:37:00 Test Item Value Reference Range Interpretation Comments Lymphocytes (test code = Lymphocytes) 4.7 20.0-40.0 [place] 938761-05-24 09:37:00 Test Item Value Reference Range Interpretation Comments Monocytes (test code = Monocytes) 6.8 2.0-12.0 [facility] HeightsWfvludbDRWFAIAQVA9673-25-57 09:37:00 Test Item Value Reference Range Interpretation Comments Eosinophils (test code = 0.1 See_Comment [A utomated message] The Eosinophils) system which ge nerated this result tra nsmitted reference range : <=4.0. The reference r cristiano was not used to int erpret this result as normal/abnormal . [facility] HeightsSiwihksXYCXDIVBDO6090-62-11 09:37:00 Test Item Value Reference Range Interpretation Comments Basophils (test code = 0.3 See_Comment [Aut omated message] The Basophils) system which ge nerated this result tra nsmitted reference range : <=1.0. The reference r cristiano was not used to int erpret this result as normal/abnormal . [facility] HeightsMbuygtqCGHJJQJTSO1910-24-01 09:37:00 Test Item Value Reference Range Interpretation Comments Neutrophils # (test code = Neutrophils 24.5 1.5-8.1 #) [facility] HeightsSfzropaNRZPUZKZYG9424-41-71 09:37:00 Test Item Value Reference Range Interpretation Comments Lymphocytes # (test code = Lymphocytes 1.3 1.0-5.5 #) [facility] HeightsAtvhrmvETPPPYCWET3804-16-80 09:37:00 Test Item Value Reference Range Interpretation Comments Monocytes # (test code 1.9 See_Comment [Aut omated message] The = Monocytes #) system which generated this result tra nsmitted reference range : <=0.8. The reference r cristiano was not used to int erpret this result as normal/abnormal . [facility] HeightsQbdbctiWBOULQRSFI3158-13-83 09:37:00 Test Item Value Reference Range Interpretation Comments Basophils # (test code 0.1 See_Comment [Aut omated message] The = Basophils #) system which generated this result tra nsmitted reference range : <=0.2. The reference r cristiano was not used to int erpret this result as normal/abnormal . [facility] TOFMBXZYL2026-74-48 09:37:00 Test Item Value Reference Range Interpretation Comments Hgb A1C (test code = Hgb A1C) 5.6 [facility] NTRSV8390-21-21 09:37:00 Test Item Value Reference Range Interpretation Comments Glucose Lvl (test code = Glucose Lvl) 112 70-99 [facility]2021-05-24 09:37:00 Test Item Value Reference Range Interpretation Comments BUN (test code = BUN) 5 7-22 [facility]2021-05-24 09:37:00 Test Item Value Reference Range Interpretation Comments Creatinine Lvl (test code = Creatinine 0.74 0.50-1.40 Lvl) [facility]2021-05-24 09:37:00 Test Item Value Reference Range Interpretation Comments Sodium Lvl (test code = Sodium Lvl) 135 135-145 [facility]2021-05-24 09:37:00 Test Item Value Reference Range Interpretation Comments Potassium Lvl (test code = Potassium 3.2 3.5-5.1 Lvl) [facility]2021-05-24 09:37:00 Test Item Value Reference Range Interpretation Comments Chloride Lvl (test code = Chloride Lvl) 101 95-109 [facility]2021-05-24 09:37:00 Test Item Value Reference Range Interpretation Comments CO2 (test code = CO2) 25 24-32 [facility]2021-05-24 09:37:00 Test Item Value Reference Range Interpretation Comments Calcium Lvl (test code = Calcium Lvl) 8.5 8.5-10.5 [facility]2021-05-24 09:37:00 Test Item Value Reference Range Interpretation Comments Total Protein (test code = Total 6.9 6.4-8.4 Protein) [facility]ajacxkVUBDBNDRZM4309-34-70 00:40:00 Test Item Value Reference Range Interpretation Comments Coronavirus (COVID-19) Not Detected (02/01/21 JOAQUIM (test code = 7:40 PM) Coronavirus (COVID-19) JOAQUIM) [facility] AmericaDytnbekPLENTXUAVM6844-59-57 00:40:00 Test Item Value Reference Range Interpretation Comments Coronavirus (COVID-19) Not Detected (02/01/21 JOAQUIM (test code = 7:40 PM) Coronavirus (COVID-19) JOAQUIM) [facility] LJRYBOV9215-44-33 00:29:00 Test Item Value Reference Range Interpretation Comments ABO/Rh (test code = ABO/Rh) O POS [facility]-r-T [facility] [id number] 00:29:00 Test Item Value Reference Range Interpretation Comments Antibody Scrn (test Negative (02/01/21 7:29 code = Antibody Scrn) PM) [facility] [id number] 00:29:00 Test Item Value Reference Range Interpretation Comments Lactic Acid Lvl (test code = Lactic 1.2 0.5-2.2 Acid Lvl) [facility] DHBNFPK9616-87-14 00:29:00 Test Item Value Reference Range Interpretation Comments ABO/Rh (test code = ABO/Rh) O POS [facility] [id number] 00:29:00 Test Item Value Reference Range Interpretation Comments Antibody Scrn (test Negative (02/01/21 7:29 code = Antibody Scrn) PM) [facility] [id number] 00:29:00 Test Item Value Reference Range Interpretation Comments Lactic Acid Lvl (test code = Lactic 1.2 0.5-2.2 Acid Lvl) [facility]2021-05-23 23:13:00 Test Item Value Reference Range Interpretation Comments S. aureus (test code = Not Detected (02/01/21 S. aureus) 6:13 PM) [facility] [id number] 23:13:00 Test Item Value Reference Range Interpretation Comments S. epidermidis (test Not Detected (02/01/21 code = S. epidermidis) 6:13 PM) [facility]2021-05-23 23:13:00 Test Item Value Reference Range Interpretation Comments S. lugdunensis (test Not Detected (02/01/21 code = S. lugdunensis) 6:13 PM) [facility]2021-05-23 23:13:00 Test Item Value Reference Range Interpretation Comments S. anginosus grp (test Not Detected (02/01/21 code = S. anginosus 6:13 PM) grp) [facility]2021-05-23 23:13:00 Test Item Value Reference Range Interpretation Comments S. agalactiae (test code Not Detected (02/01/21 = S. agalactiae) 6:13 PM) [facility]2021-05-23 23:13:00 Test Item Value Reference Range Interpretation Comments S. pneumoniae (test code Not Detected (02/01/21 = S. pneumoniae) 6:13 PM) [place] 540681-05-23 23:13:00 Test Item Value Reference Range Interpretation Comments S. pyogenes (test code Not Detected (02/01/21 = S. pyogenes) 6:13 PM) [place] [address]-05-23 23:13:00 Test Item Value Reference Range Interpretation Comments E. faecalis (test code Not Detected (02/01/21 = E. faecalis) 6:13 PM) [place] [address]-05-23 23:13:00 Test Item Value Reference Range Interpretation Comments E. faecium (test code Not Detected (02/01/21 = E. faecium) 6:13 PM) [place] [address]-05-23 23:13:00 Test Item Value Reference Range Interpretation Comments Staphylococcus spp. (test Detected code = Staphylococcus *ABN*(02/01/21 6:13 spp.) PM) [place] [address]-05-23 23:13:00 Test Item Value Reference Range Interpretation Comments Streptococcus spp. (test Not Detected code = Streptococcus (02/01/21 6:13 PM) spp.) [place] 540681-05-23 23:13:00 Test Item Value Reference Range Interpretation Comments Listeria spp. (test Not Detected (02/01/21 code = Listeria spp.) 6:13 PM) [place] [address]-05-23 23:13:00 Test Item Value Reference Range Interpretation Comments mecA Methicillin Not Detected (02/01/21 Resistance (test code = 6:13 PM) mecA Methicillin Resistance) [place] [address]-05-23 23:13:00 Test Item Value Reference Range Interpretation Comments Hans Vancomycin Not Detected (02/01/21 Resistance (test code = 6:13 PM) Hans Vancomycin Resistance) [place] [address]-05-23 23:13:00 Test Item Value Reference Range Interpretation Comments vanB Vancomycin Not Detected (02/01/21 Resistance (test code = 6:13 PM) vanB Vancomycin Resistance) [place] 540681-05-23 23:13:00 Test Item Value Reference Range Interpretation Comments S. aureus (test code = Not Detected (02/01/21 S. aureus) 6:13 PM) [facility] [id number] 23:13:00 Test Item Value Reference Range Interpretation Comments S. epidermidis (test Not Detected (02/01/21 code = S. epidermidis) 6:13 PM) [facility]2021-05-23 23:13:00 Test Item Value Reference Range Interpretation Comments S. lugdunensis (test Not Detected (02/01/21 code = S. lugdunensis) 6:13 PM) [facility]2021-05-23 23:13:00 Test Item Value Reference Range Interpretation Comments S. anginosus grp (test Not Detected (02/01/21 code = S. anginosus 6:13 PM) grp) [facility]2021-05-23 23:13:00 Test Item Value Reference Range Interpretation Comments S. agalactiae (test code Not Detected (02/01/21 = S. agalactiae) 6:13 PM) [facility]2021-05-23 23:13:00 Test Item Value Reference Range Interpretation Comments S. pneumoniae (test code Not Detected (02/01/21 = S. pneumoniae) 6:13 PM) [facility]2021-05-23 23:13:00 Test Item Value Reference Range Interpretation Comments S. pyogenes (test code Not Detected (02/01/21 = S. pyogenes) 6:13 PM) [facility]2021-05-23 23:13:00 Test Item Value Reference Range Interpretation Comments E. faecalis (test code Not Detected (02/01/21 = E. faecalis) 6:13 PM) [facility]2021-05-23 23:13:00 Test Item Value Reference Range Interpretation Comments E. faecium (test code Not Detected (02/01/21 = E. faecium) 6:13 PM) [facility]2021-05-23 23:13:00 Test Item Value Reference Range Interpretation Comments Staphylococcus spp. (test Detected code = Staphylococcus *ABN*(02/01/21 6:13 spp.) PM) [facility]2021-05-23 23:13:00 Test Item Value Reference Range Interpretation Comments Streptococcus spp. (test Not Detected code = Streptococcus (02/01/21 6:13 PM) spp.) [address]05-23 23:13:00 Test Item Value Reference Range Interpretation Comments Listeria spp. (test Not Detected (02/01/21 code = Listeria spp.) 6:13 PM) [address] 23:13:00 Test Item Value Reference Range Interpretation Comments mecA Methicillin Not Detected (02/01/21 Resistance (test code = 6:13 PM) mecA Methicillin Resistance) [address] 23:13:00 Test Item Value Reference Range Interpretation Comments Hans Vancomycin Not Detected (02/01/21 Resistance (test code = 6:13 PM) Hans Vancomycin Resistance) [address] 23:13:00 Test Item Value Reference Range Interpretation Comments vanB Vancomycin Not Detected (02/01/21 Resistance (test code = 6:13 PM) vanB Vancomycin Resistance) [place] 233511-05-23 20:56:00 Test Item Value Reference Range Interpretation Comments Glucose Lvl (test code = Glucose Lvl) 108 70-99 [place] 233511-05-23 20:56:00 Test Item Value Reference Range Interpretation Comments BUN (test code = BUN) 4 7-22 [place] [address]-05-23 20:56:00 Test Item Value Reference Range Interpretation Comments Creatinine Lvl (test code = Creatinine 0.71 0.50-1.40 Lvl) [place] 233511-05-23 20:56:00 Test Item Value Reference Range Interpretation Comments Sodium Lvl (test code = Sodium Lvl) 136 135-145 [place] 233511-05-23 20:56:00 Test Item Value Reference Range Interpretation Comments Potassium Lvl (test code = Potassium 3.7 3.5-5.1 Lvl) [place] [address]-05-23 20:56:00 Test Item Value Reference Range Interpretation Comments Chloride Lvl (test code = Chloride Lvl) 105 95-109 [place] 233511-05-23 20:56:00 Test Item Value Reference Range Interpretation Comments CO2 (test code = CO2) [facility]2021-05-23 20:56:00 Test Item Value Reference Range Interpretation Comments Calcium Lvl (test code = Calcium Lvl) 8.5 8.5-10.5 [facility]2021-05-23 20:56:00 Test Item Value Reference Range Interpretation Comments AGAP (test code = AGAP) 10.7 10.0-20.0 [place] 233511-05-23 20:56:00 Test Item Value Reference Range Interpretation Comments eGFR (test code = eGFR) 114 [place] 854291-05-23 20:56:00 Test Item Value Reference Range Interpretation Comments S Preg (test code = S Negative *NA*(02/01/21 Preg) 3:56 PM) [place] 233511-05-23 20:56:00 Test Item Value Reference Range Interpretation Comments Glucose Lvl (test code = Glucose Lvl) 108 70-99 [facility]2021-05-23 20:56:00 Test Item Value Reference Range Interpretation Comments BUN (test code = BUN) 12 17- [place] 233511-05-23 20:56:00 Test Item Value Reference Range Interpretation Comments Creatinine Lvl (test code = Creatinine 0.71 0.50-1.40 Lvl) [facility]2021-05-23 20:56:00 Test Item Value Reference Range Interpretation Comments Sodium Lvl (test code = Sodium Lvl) 136 135-145 [facility]2021-05-23 20:56:00 Test Item Value Reference Range Interpretation Comments Potassium Lvl (test code = Potassium 3.7 3.5-5.1 Lvl) [place] 233511-05-23 20:56:00 Test Item Value Reference Range Interpretation Comments Chloride Lvl (test code = Chloride Lvl) 105 95-109 [place] 233511-05-23 20:56:00 Test Item Value Reference Range Interpretation Comments CO2 (test code = CO2) 24 [place] 233511-05-23 20:56:00 Test Item Value Reference Range Interpretation Comments Calcium Lvl (test code = Calcium Lvl) 8.5 8.5-10.5 [place] 233511-05-23 20:56:00 Test Item Value Reference Range Interpretation Comments AGAP (test code = AGAP) 10.7 10.0-20.0 [facility]2021-05-23 20:56:00 Test Item Value Reference Range Interpretation Comments eGFR (test code = eGFR) 114 [place] 854291-05-23 20:56:00 Test Item Value Reference Range Interpretation Comments S Preg (test code = S Negative *NA*(02/01/21 Preg) 3:56 PM) [facility] HeightsWmppfbjRRXZYFKXGK5553-52-57 20:24:00 Test Item Value Reference Range Interpretation Comments WBC (test code = WBC) 29.6 3.7-10.4 [place] 938761-05-23 20:24:00 Test Item Value Reference Range Interpretation Comments RBC (test code = RBC) 4.51 4.20-5.40 [facility] HeightsJwkgeapHTQAXKPAVT0780-45-99 20:24:00 Test Item Value Reference Range Interpretation Comments Hgb (test code = Hgb) 13.2 12.0-16.0 [facility] HeightsYtbppevYNFSLPIYRN7218-33-84 20:24:00 Test Item Value Reference Range Interpretation Comments Hct (test code = Hct) 39.7 36.0-48.0 [facility] HeightsDzezoglBNRTKXZDEQ1509-27-45 20:24:00 Test Item Value Reference Range Interpretation Comments MCV (test code = MCV) 88.0 80.0-98.0 [facility] HeightsYmtopvjZEAMEAYNLL6474-71-90 20:24:00 Test Item Value Reference Range Interpretation Comments MCH (test code = MCH) 29.3 pg 27.0-31.0 [facility] HeightsNsrixfkXIEDYBKZRI6188-30-63 20:24:00 Test Item Value Reference Range Interpretation Comments MCHC (test code = MCHC) 33.3 32.0-36.0 [place] 938761-05-23 20:24:00 Test Item Value Reference Range Interpretation Comments RDW (test code = RDW) 13.1 11.5-14.5 [place] 938761-05-23 20:24:00 Test Item Value Reference Range Interpretation Comments Platelet (test code = Platelet) 459 133450 [facility] HeightsJgkcxeaZJKVPIVDBB6499-88-66 20:24:00 Test Item Value Reference Range Interpretation Comments MPV (test code = MPV) 7.7 7.4-10.4 [place] [address]-05-23 20:24:00 Test Item Value Reference Range Interpretation Comments Neutrophils # (test code = Neutrophils 24.9 1.5-8.1 #) [place] [address]-05-23 20:24:00 Test Item Value Reference Range Interpretation Comments Lymphocytes # (test code = Lymphocytes 2.1 1.0-5.5 #) [place] 938761-05-23 20:24:00 Test Item Value Reference Range Interpretation Comments Monocytes # (test code 2.7 See_Comment [Aut omated message] The = Monocytes #) system which generated this result tra nsmitted reference range : <=0.8. The reference r cristiano was not used to int erpret this result as normal/abnormal . [place] 938761-05-23 20:24:00 Test Item Value Reference Range Interpretation Comments Segs (test code = Segs) 81.0 45.0-75.0 [place] [address]-05-23 20:24:00 Test Item Value Reference Range Interpretation Comments Bands (test code = 3.0 See_Comment [Automat ed message] The Bands) system which ge nerated this result transmit nini reference range : <=11.0. The reference r cristiano was not used to interpr et this result as tonja l/abnormal. [place] 938761-05-23 20:24:00 Test Item Value Reference Range Interpretation Comments Lymphocytes (test code = Lymphocytes) 7.0 20.0-40.0 [place] 938761-05-23 20:24:00 Test Item Value Reference Range Interpretation Comments Monocytes (test code = Monocytes) 9.0 2.0-12.0 [place] [address]-05-23 20:24:00 Test Item Value Reference Range Interpretation Comments Atypical Lymphs (test code = Atypical 0.0 Lymphs) [place] 938761-05-23 20:24:00 Test Item Value Reference Range Interpretation Comments RBC Morph (test code = Normal (02/01/21 3:24 RBC Morph) PM) [place] 938761-05-23 20:24:00 Test Item Value Reference Range Interpretation Comments Plt Morph (test code = Normal (02/01/21 3:24 Plt Morph) PM) [facility] HeightsFlictecDQCUDWTTDG8119-26-56 20:24:00 Test Item Value Reference Range Interpretation Comments WBC (test code = WBC) 29.6 3.7-10.4 [facility] HeightsEwwbqcoLKSMQPIAYE3817-43-14 20:24:00 Test Item Value Reference Range Interpretation Comments RBC (test code = RBC) 4.51 4.20-5.40 [facility] HeightsMglaggtMRFJIJBDAB9958-64-86 20:24:00 Test Item Value Reference Range Interpretation Comments Hgb (test code = Hgb) 13.2 12.0-16.0 [facility] HeightsWxnurnkMUWFAMBESV5632-79-13 20:24:00 Test Item Value Reference Range Interpretation Comments Hct (test code = Hct) 39.7 36.0-48.0 [facility] HeightsXrafnljAFOFEKIERT2589-96-90 20:24:00 Test Item Value Reference Range Interpretation Comments MCV (test code = MCV) 88.0 80.0-98.0 [facility] HeightsTseyectBZKXENBCVM7338-00-80 20:24:00 Test Item Value Reference Range Interpretation Comments MCH (test code = MCH) 29.3 pg 27.0-31.0 [facility] HeightsCbrylhnLFEIASMQLE7856-36-10 20:24:00 Test Item Value Reference Range Interpretation Comments MCHC (test code = MCHC) 33.3 32.0-36.0 [facility] HeightsDwxdccmIOTSLMTEUU9952-97-15 20:24:00 Test Item Value Reference Range Interpretation Comments RDW (test code = RDW) 13.1 11.5-14.5 [facility] HeightsCeggbyzAXOBOHEHNS4186-29-51 20:24:00 Test Item Value Reference Range Interpretation Comments Platelet (test code = Platelet) 459 989-450 [facility] HeightsUwnfwolUWRYKZFLAN8890-71-53 20:24:00 Test Item Value Reference Range Interpretation Comments MPV (test code = MPV) 7.7 7.4-10.4 [place] 938761-05-23 20:24:00 Test Item Value Reference Range Interpretation Comments Neutrophils # (test code = Neutrophils 24.9 1.5-8.1 #) [facility] HeightsFfhniofHWUSELQFTU4246-49-01 20:24:00 Test Item Value Reference Range Interpretation Comments Lymphocytes # (test code = Lymphocytes 2.1 1.0-5.5 #) [place] 938761-05-23 20:24:00 Test Item Value Reference Range Interpretation Comments Monocytes # (test code 2.7 See_Comment [Aut omated message] The = Monocytes #) system which generated this result tra nsmitted reference range : <=0.8. The reference r cristaino was not used to int erpret this result as normal/abnormal . [place] 938761-05-23 20:24:00 Test Item Value Reference Range Interpretation Comments Segs (test code = Segs) 81.0 45.0-75.0 [place] 938761-05-23 20:24:00 Test Item Value Reference Range Interpretation Comments Bands (test code = 3.0 See_Comment [Automat ed message] The Bands) system which ge nerated this result transmit nini reference range : <=11.0. The reference r cristiano was not used to interpr et this result as tonja l/abnormal. [facility] HeightsCmawjtcAJDKRMVRBD6120-60-41 20:24:00 Test Item Value Reference Range Interpretation Comments Lymphocytes (test code = Lymphocytes) 7.0 20.0-40.0 [place] 938761-05-23 20:24:00 Test Item Value Reference Range Interpretation Comments Monocytes (test code = Monocytes) 9.0 2.0-12.0 [place] [address]-05-23 20:24:00 Test Item Value Reference Range Interpretation Comments Atypical Lymphs (test code = Atypical 0.0 Lymphs) [place] [address]-05-23 20:24:00 Test Item Value Reference Range Interpretation Comments RBC Morph (test code = Normal (02/01/21 3:24 RBC Morph) PM) [place] [address]-05-23 20:24:00 Test Item Value Reference Range Interpretation Comments Plt Morph (test code = Normal (02/01/21 3:24 Plt Morph) PM) [facility]
--- NOTE | 2023-02-05 18:24 | RAD REPORT ---
EXAM DESCRIPTION: US - Extremity Venous Uni Ltd - 02/05/2023 6:14 pm CLINICAL HISTORY: Pain, swelling COMPARISON: None. TECHNIQUE: Real-time sonographic evaluation of the right lower extremity deep venous system was perf ormed. FINDINGS: Normal compressibility, flow augmentation, phasic flow and spontaneous flow is identified in the right lower extremity deep venous system. No intraluminal filling defects seen. IMPRESSION: No DVT in the right lower extremity.
[2023-02-05] MEDS ORDERED: ACETAMINOPHEN 325 MG TABLET ONE (18:49)
--- NOTE | 2023-02-05 19:24 | EDPHYS ---
Physician Documentation [facility] Name: Kaila Singh Age: 32 yrs Sex: Female : 1990 Arrival Date: 02/05/2023 Time: 17:07 Bed 11 Private MD: PATRICIA Physician Anoop Jackson HPI: 02/05 17:30 This 32 yrs old Female presents to ER via Ambulatory with complaints of Leg Swelling, cp Leg Pain - right. 17:30 The patient presents with pain, that is acute, swelling. The complaints affect the cp medial aspect of right thigh. Context: resulted from an unknown cause, the patient can fully bear weight, the patient is able to ambulate, without difficulty, Problem is a result from a previous injury: No. Onset: The symptoms/episode began/occurred 3 day(s) ago. Associated signs and symptoms: Pertinent negatives calf tenderness, fever, numbness, rash, warmth, weakness. Treatment prior to arrival includes: no previous treatment. Historical: - Allergies: 18:39 No Known Allergies; nj1 - PMHx: 18:39 None; nj1 - PSHx: 18:39 Drainage of boil; nj1 - Immunization history:: Client reports having NOT received the Covid vaccine. - Social history:: Smoking status: Reported history of juuling and/or vaping. ROS: 17:35 Constitutional: Negative for body aches, chills, fever, poor PO intake. cp 17:35 Eyes: Negative for injury, pain, redness, and discharge. cp 17:35 Neck: Negative for pain with movement, pain at rest, stiffness. 17:35 Cardiovascular: Negative for chest pain, edema, palpitations. 17:35 Respiratory: Negative for cough, shortness of breath, wheezing. 17:35 Abdomen/GI: Negative for abdominal pain, nausea, vomiting, and diarrhea. 17:35 Back: Negative for pain at rest, pain with movement. 17:35 MS/extremity: Positive for pain, swelling, tenderness, of the medial aspect of right thigh, Negative for injury or acute deformity, decreased range of motion. 17:35 Skin: Negative for cellulitis, rash. 17:35 Neuro: Negative for altered mental status, dizziness, headache, weakness. 17:35 All other systems are negative. Exam: 17:40 Constitutional: The patient appears in no acute distress, alert, awake, cp non-diaphoretic, non-toxic, well developed, well nourished, obese. 17:40 Head/Face: Normocephalic, atraumatic. cp 17:40 Chest/axilla: Inspection: normal. 17:40 Cardiovascular: Rate: normal, Rhythm: regular. 17:40 Respiratory: the patient does not display signs of respiratory distress, Respirations: normal, no use of accessory muscles, no retractions, labored breathing, is not present, Breath sounds: are clear throughout, no decreased breath sounds, no stridor, no wheezing. 17:40 Abdomen/GI: Exam negative for discomfort, distension, guarding, Inspection: abdomen appears normal. 17:40 Back: pain, is absent, ROM is normal. 17:40 Musculoskeletal/extremity: Extremities: grossly normal except: noted in the medial aspect of right thigh: pain, tenderness, There is no evidence of swelling, ROM: full active range of motion, in the right hip and right knee and right ankle, Pulses: noted to be 2+ in the right dorsalis pedis artery, the right foot and right leg Sensation intact. 17:40 Skin: cellulitis, is not appreciated, no rash present. Vital Signs: 18:37 BP 110 / 86; Pulse 84; Resp 18; Temp 99.2(O); Pulse Ox 99% ; Weight 120.2 kg; Height 5 nj1 ft. 7 in. ; Pain 6/10; 20:00 BP 113 / 88; Pulse 89; Resp 16; Pulse Ox 100% on R/A; pf1 18:37 Body Mass Index 41.50 (120.20 kg, 170.18 cm) nj1 18:37 Pain Scale: Adult nj1 MDM: 18:47 Patient medically screened. cp 19:22 Data reviewed: vital signs, nurses notes, radiologic studies, ultrasound. cp 19:22 Differential diagnosis: DVT, muscle strain, cellulitis. I considered the following cp discharge prescriptions or medication management in the emergency department Medications were administered in the Emergency Department. See MAR. Counseling: I had a detailed discussion with the patient and/or guardian regarding: the historical points, exam findings, and any diagnostic results supporting the discharge/admit diagnosis, radiology results, to return to the emergency department if symptoms worsen or persist or if there are any questions or concerns that arise at home. 02/05 17:24 Order name: US Extremity Venous Unilateral Ltd; Complete Time: 18:47 cp 02/05 18:47 Interpretation: Report reviewed. cp Administered Medications: 18:44 Drug: Acetaminophen PO 650 mg Route: PO; nj1 19:40 Follow up: Response: No adverse reaction; Marked relief of symptoms; Pain is decreased pf1 19:55 Drug: Ketorolac IM 30 mg Route: IM; Site: left deltoid; pf1 20:19 Follow up: Response: No adverse reaction; Marked relief of symptoms pf1 Disposition Summary: 02/05/23 19:23 Discharge Ordered Location: Home cp Problem: new cp Symptoms: have improved cp Condition: Stable cp Diagnosis - Pain in right leg cp Followup: cp - With: Private Physician - When: 2 - 3 days - Reason: Recheck today's complaints Discharge Instructions: - Discharge Summary Sheet cp - Musculoskeletal Pain cp - Heat Therapy cp Forms: - Medication Reconciliation Form cp - Thank You Letter cp - Antibiotic Education cp - Prescription Opioid Use cp Prescriptions: - Cyclobenzaprine 10 mg Oral Tablet - take 1 tablet by ORAL route every 8 hours As needed; 20 tablet; Refills: 0, cp Product Selection Permitted - Diclofenac Sodium 75 mg Oral tablet,delayed release (DR/EC) - take 1 tablet by ORAL route 2 times per day; 20 tablet; Refills: 0, Product cp Selection Permitted Signatures: Dispatcher [employer] EDAnoop Andersen PA PA cp Kerry Haro RN RN pf1 Madyson Osorio RN RN nj1
--- NOTE | 2023-02-05 19:24 | ER ---
Nurse's Notes [facility] Name: Kaila Singh Age: 32 yrs Sex: Female : 1990 Arrival Date: 02/05/2023 Time: 17:07 Bed 11 Private MD: Diagnosis: Pain in right leg Presentation: 02/05 18:05 Note Not in WR when called for triage. [facility] 18:37 Chief complaint: Patient states: Right upper leg pain for 3 days, getting worse, was nj1 swollen yesterday. Denies injury. Coronavirus screen: Vaccine status: Patient reports being unvaccinated. Ebola Screen: Patient denies travel to an Ebola-affected area in the 21 days before illness onset. Initial Sepsis Screen: Does the patient meet any 2 criteria? No. Patient's initial sepsis screen is negative. Does the patient have a suspected source of infection? No. Patient's initial sepsis screen is negative. Risk Assessment: Do you want to hurt yourself or someone else? Patient reports no desire to harm self or others. Onset of symptoms was January 31, 2023. 18:37 Method Of Arrival: Ambulatory nj1 18:37 Acuity: WOLF 4 nj1 Historical: - Allergies: 18:39 No Known Allergies; nj1 - PMHx: 18:39 None; nj1 - PSHx: 18:39 Drainage of boil; nj1 - Immunization history:: Client reports having NOT received the Covid vaccine. - Social history:: Smoking status: Reported history of juuling and/or vaping. Screenin:12 [facility] ED Fall Risk Assessment (Adult) History of falling in the last 3 months, pf1 including since admission No falls in past 3 months (0 pts) Confusion or Disorientation No (0 pts) Intoxicated or Sedated No (0 pts) Impaired Gait No (0 pts) Mobility Assist Device Used No (0 pt) Altered Elimination No (0 pt) Score/Fall Risk Level 0 - 2 = Low Risk Oriented to surroundings, Maintained a safe environment, Educated pt \T\ family on fall prevention, incl call for assistance when getting out of bed, Assessed \T\ reinforced patient's understanding of fall precautions, Provided non-skid footwear, Hourly rounding (assess needs \T\ fall precautionary measures) done, Used ambulatory aids as needed (educated on \T\ assisted with), Used gait belt as appropriate. 19:12 Abuse screen: Denies threats or abuse. Nutritional screening: No deficits noted. pf1 Tuberculosis screening: No symptoms or risk factors identified. Assessment: 19:12 General: Appears in no apparent distress. uncomfortable, obese, well groomed, well pf1 developed, Behavior is calm, cooperative, appropriate for age, quiet. 19:12 Pain: Complains of pain in right leg Pain currently is 7 out of 10 on a pain scale. pf1 Neuro: No deficits noted. Level of Consciousness is awake, alert, obeys commands, Oriented to person, place, time, situation. Cardiovascular: No deficits noted. Capillary refill < 3 seconds Patient's skin is warm and dry. Respiratory: No deficits noted. Airway is patent Trachea midline Respiratory effort is even, unlabored, Respiratory pattern is regular, symmetrical. GI: No deficits noted. No signs and/or symptoms were reported involving the gastrointestinal system. : No deficits noted. No signs and/or symptoms were reported regarding the genitourinary system. EENT: No deficits noted. No signs and/or symptoms were reported regarding the EENT system. Derm: No deficits noted. No signs and/or symptoms reported regarding the dermatologic system. Musculoskeletal: Reports pain in right leg. Vital Signs: 18:37 BP 110 / 86; Pulse 84; Resp 18; Temp 99.2(O); Pulse Ox 99% ; Weight 120.2 kg; Height 5 nj1 ft. 7 in. ; Pain 6/10; 20:00 BP 113 / 88; Pulse 89; Resp 16; Pulse Ox 100% on R/A; pf1 18:37 Body Mass Index 41.50 (120.20 kg, 170.18 cm) nj1 18:37 Pain Scale: Adult [facility] ED Course: 17:09 Patient arrived in ED. am2 17:11 Anoop Conti PA is PHCP. cp 17:11 Anoop Jackson MD is Attending Physician. cp 18:15 US Extremity Venous Unilateral Ltd In Process Unspecified. EDMS 18:39 Triage completed. nj1 18:40 Arm band placed on right wrist. nj1 19:11 Madyson Osorio, RN is Primary Nurse. nj1 19:12 Patient has correct armband on for positive identification. Bed in low position. Call pf1 light in reach. 20:00 No provider procedures requiring assistance completed. pf1 20:00 Patient did not have IV access during this emergency room visit. pf1 Administered Medications: 18:44 Drug: Acetaminophen PO 650 mg Route: PO; nj1 19:40 Follow up: Response: No adverse reaction; Marked relief of symptoms; Pain is decreased pf1 19:55 Drug: Ketorolac IM 30 mg Route: IM; Site: left deltoid; pf1 20:19 Follow up: Response: No adverse reaction; Marked relief of symptoms pf1 Medication: 20:00 VIS not applicable for this client. pf1 Outcome: 19:23 Discharge ordered by . cp 20:18 Discharged to home ambulatory. pf1 20:18 Condition: improved 20:18 Discharge instructions given to patient, Instructed on discharge instructions, follow up and referral plans. Demonstrated understanding of instructions, follow-up care, medications, Prescriptions given X 2. 20:19 Patient left the ED. pf1 Signatures: Dispatcher [employer] EDMS Anoop Conti PA PA cp Moreno, Amanda am2 Kerry Haro RN RN pf1 Madyson Osorio RN RN nj1 Corrections: (The following items were deleted from the chart) 18:44 18:37 Pulse 84bpm; Resp 18bpm; Pulse Ox 99%; Temp 99.2F Oral; 120.2 kg; Height 5 ft. 7 nj1 in.; BMI: 41.5; Pain 6/10, Adult; nj1
[2023-02-05] MEDS ORDERED: KETOROLAC 30 MG/ML INJ ONE (20:01)
[2023-02-05 20:48] VITALS: BP 110/86; TEMP 99.2; O2SAT 99
== END 2023-02-05 20:19 | disposition home or self-care (01) ==
LOC: ER 17:07
DX: M79.651 Pain in right thigh (principal)
CPT/HCPCS: 93971; 96372; 99284